=== PATIENT | male | born 1965 | race African-American/Black ===

== ENCOUNTER 2019-06-07 12:06 | Inpatient (IN) | payer OTHER, SELFPAY ==
[2019-06-07] VITALS (16 sets, daily range): BP systolic 126–151; BP diastolic 64–93; PULSE 87–102; RESP 17–30; TEMP 36.8–38.7; O2SAT 92–99; BMI 30.7
--- NOTE | ~2019-06-07 | XR_ITS ---
EXAMINATION: XR chest 1V portable DATE: 06/07/2019 13:14 INDICATION: Cough. Shortness of breath. TECHNIQUE: A single frontal view of the chest was obtained. COMPARISON: None. FINDINGS: There are patchy airspace opacities in the mid and lower lung zones. No pleural effusion or pneumothorax. The heart size is normal. IMPRESSION: 1. Patchy airspace opacities in the mid and lower lung zones, consistent with pneumonia versus pulmon brock edema. Reviewed, dictated and finalized at location A. IMPRESSION: 1. Patchy airspace opacities in the mid and lower lung zones, consistent with p neumonia versus pulmonary edema.
--- NOTE | ~2019-06-07 | XR_ITS ---
EXAMINATION: XR chest 1V portable DATE: 06/25/2019 06:23 INDICATION: Pneumonia TECHNIQUE: frontal view of the chest was obtained. COMPARISON: Chest radiograph dated 06/24/2019 FINDINGS: No significant interval change in diffuse bilateral lung disease relatively sparing the left upper lakesh[place] ng zone. No pneumothorax or definitive pleural effusion. The cardiomediastinal silhouette is normal. IMPRESSION: 1. No significant change in extensive diffuse bilateral lung disease consistent with pneumonia. Reviewed, dictated and finalized at location A.
--- NOTE | ~2019-06-07 | XR_ITS ---
XR chest 1V portable DATE: 06/10/2019 10:56 INDICATION: Worsening breath sounds.] COVID-19 infection TECHNIQUE: Portable upright AP chest on 06/10/2019 at 1051 hours COMPARISON: 06/08/2019 portable AP chest FINDINGS: There are extensive bilateral pulmonary infiltrates, which appear mildly increased in sever ity compared to 06/08/19,020. Normal heart size. No pleural effusion or pulmonary vascular congestion or pneumothorax is evident. IMPRESSION: Extensive bilateral pulmonary infiltrates throughout both lungs, mildly increased since Reviewed, dictated and finalized at location A. IMPRESSION: Extensive bilateral pulmonary infiltrates throughout both lungs, mi ldly increased since 06/08/2019
--- NOTE | ~2019-06-07 | XR_ITS ---
XR chest 1V portable 06/11/2019 16:39 Indication: Hypoxia. COVID positive. Procedure: AP portable chest Comparison: Comparison to multiple prior studies sequentially, with oldest reviewed study dated 04/2019. Findings: Stable extensive bilateral airspace disease, compatible with pneumonia. No pleural effusion or pneumothorax. No acute osseous abnormality. Stable cardiomediastinal silhouette. Impression: 1: Stable extensive bilateral airspace disease, compatible with pneumonia. Differential diagnosis inc ludes ARDS and edema. Reviewed, dictated and finalized at location A. Impression: 1: Stable extensive bilateral airspace disease, compatible with pneumonia. Diff erential diagnosis includes ARDS and edema.
--- NOTE | ~2019-06-07 | XR_ITS ---
EXAMINATION: XR chest 1V portable DATE: 06/18/2019 05:55 INDICATION: COVID-19 pneumonia. TECHNIQUE: A single frontal view of the chest was obtained. COMPARISON: Chest single view 06/14/2019 FINDINGS: The lung volumes are small. There are coarse airspace and interstitial opacities throughout the lungs bilaterally. No pleural effusion or pneumothorax. The heart size is normal. IMPRESSION: 1. Stable diffuse lung disease, consistent with pneumonia versus acute respiratory distress syndrome (ARDS). Reviewed, dictated and finalized at location A. IMPRESSION: 1. Stable diffuse lung disease, consistent with pneumonia versus acute respirat ory distress syndrome (ARDS).
--- NOTE | ~2019-06-07 | XR_ITS ---
EXAMINATION: XR chest 1V portable DATE: 06/08/2019 08:46 INDICATION: Worsening hypoxia. COVID PUI TECHNIQUE: frontal view of the chest was obtained. COMPARISON: Chest radiograph dated 06/07/2019 FINDINGS: No significant interval change in scattered bilateral patchy airspace opacities relatively sparing th e apices. No pleural effusion or pneumothorax. The cardiomediastinal silhouette is normal. IMPRESSION: 1. Unchanged bilateral scattered patchy airspace opacities consistent with multifocal pneumonia and/o r pulmonary edema. Reviewed, dictated and finalized at location B. IMPRESSION: 1. Unchanged bilateral scattered patchy airspace opacities consistent with mult ifocal pneumonia and/or pulmonary edema.
--- NOTE | ~2019-06-07 | XR_ITS ---
EXAMINATION: XR chest 1V portable DATE: 06/22/2019 08:10 INDICATION: COVID-19 pneumonia. TECHNIQUE: A single frontal view of the chest was obtained. COMPARISON: Chest single view 06/21/2019 FINDINGS: The lung volumes are small. There are interstitial opacities and airspace opacities through out the lungs bilaterally. No pleural effusion or pneumothorax. The heart size is normal. IMPRESSION: 1. Stable diffuse lung disease, consistent with pneumonia versus acute respiratory distress syndrome (ARDS). Reviewed, dictated and finalized at location A. IMPRESSION: 1. Stable diffuse lung disease, consistent with pneumonia versus acute respirat ory distress syndrome (ARDS).
--- NOTE | ~2019-06-07 | XR_ITS ---
EXAMINATION: XR chest 1V portable EXAM DATE: 06/24/2019 06:23 INDICATION: Pneumonia. TECHNIQUE: Portable AP frontal chest x-ray was obtained. Comparison is made to prior examination from 06/23/2019. FINDINGS: Extensive bilateral abnormal reticulation and patchy regions of more confluent opacity agai n seen. There is no pneumothorax suspected. Probable small pleural effusions. Cardiomediastinal silho uette is normal. There are mild bony degenerative changes. IMPRESSION: Extensive acute bilateral airspace disease unchanged. Reviewed, dictated and finalized at location A.
--- NOTE | ~2019-06-07 | XR_ITS ---
EXAMINATION: XR chest 1V portable INDICATION: Bilateral infiltrates, shortness of breath TECHNIQUE: Portable AP chest at 0811 hours COMPARISON: 06/18/2019 FINDINGS: Widespread airspace opacities persist with improvement in the mid and upper lung zones. The lung volumes are low. The heart size is normal. There is no pleural effusion or pneumothorax. IMPRESSION: 1. Diffuse lung disease with improvement in the mid and upper lung zones, consistent with improving p neumonia versus acute respiratory distress syndrome (ARDS). Reviewed, dictated and finalized at location A. IMPRESSION: 1. Diffuse lung disease with improvement in the mid and upper lung zones, consi stent with improving pneumonia versus acute respiratory distress syndrome (ARDS ).
--- NOTE | ~2019-06-07 | XR_ITS ---
EXAMINATION: XR chest 1V portable DATE: 06/14/2019 06:12 INDICATION: Pneumonia. TECHNIQUE: A single frontal view of the chest was obtained. COMPARISON: Chest single view 06/11/2019 FINDINGS: There are airspace opacities in all lung zones bilaterally. No pleural effusion or pneumoth orax. The heart size is normal. IMPRESSION: 1. Stable diffuse lung disease, consistent with pneumonia versus acute respiratory distress syndrome (ARDS). Reviewed, dictated and finalized at location A. IMPRESSION: 1. Stable diffuse lung disease, consistent with pneumonia versus acute respirat ory distress syndrome (ARDS).
--- NOTE | ~2019-06-07 | XR_ITS ---
EXAMINATION: XR chest 1V portable EXAM DATE: 06/23/2019 05:47 INDICATION: Pneumonia. COVID 19 positive. TECHNIQUE: Portable AP frontal chest x-ray was obtained. Comparison is made to prior examination from 06/22/2019. FINDINGS: Extensive bilateral abnormal reticulation again seen There is no pneumothorax suspected. Pr obable small pleural effusions. Cardiomediastinal silhouette is normal. There are mild bony degenerat alexy changes. IMPRESSION: Extensive bilateral airspace disease unchanged. Reviewed, dictated and finalized at location A.
--- NOTE | 2019-06-07 12:15 | ECG_ITS ---
Measurements Intervals [place] Rate: 103 P: 50 TX: 157 QRS: -21 QRSD: 84 T: 1 QT: 320 QTc: 421 Interpretive Statements SINUS TACHYCARDIA BORDERLINE T WAVE ABNORMALITY- INFERIOR LEADS BASELINE WANDER- I, II, III, AVR, AVL, AVF ABNORMAL ECG Electronically Signed On 06-07-2019 13:43:50 CDT by Marlon John D.O.
--- NOTE | 2019-06-07 12:15 | PC.NURSE ---
Note both patient and spouse are wearing masks on arrival. States we don't want to catch anything .
[2019-06-07 12:22] LABS: Glucose Point of Care 63 (65-105)
[2019-06-07] MEDS: DEXTROSE 50% 25 GM/50 ML SYRINGE (12:23)
--- NOTE | 2019-06-07 12:27 | ED.WEAKNESS ---
HPI - Weakness General Chief complaint: Weakness <ALLEN Hernandez Last Filed: 06/07/19 14:29> Stated complaint: Weakness <ALLEN Hernandez Last Filed: 06/07/19 14:29> Time Seen by Provider: 06/07/19 12:19 <ALLEN Hernandez Last Filed: 06/07/19 14:29> Source: patient <ALLEN Hernandez Last Filed: 06/07/19 14:29> Mode of arrival: ambulatory <ALLEN Hernandez Last Filed: 06/07/19 14:29> Limitations: no limitations <ALLEN Hernandez Last Filed: 06/07/19 14:29> History of Present Illness HPI Narrative: Pt is a 53 y/o male, with a H/O IDDM, who presents to the ED with c/o generalized weakness for 4-5 days. He states that he has been feeling jittery and notes that he has been taking his insulin, but he has not been checking his BS. Pt also reports a productive cough and SOB for 3-4 days. He states that he gets more SOB with exertion, but he is still SOB in the ED bed. Pt denies fever, congestion, sore throat, rhinorrhea, CP, ABD pain, vomiting, dysuria, hematuria. He states that he has not been around any sick or anyone that has recently travelled. He also denies any recent travel. Pt got his flu shot this year. <ALLEN Hernandez Last Filed: 06/07/19 14:29> MD Complaint: generalized weakness <ALLEN Hernandez Last Filed: 06/07/19 14:29> Onset (ago): day(s) (4-5) <ALLEN Hernandez Last Filed: 06/07/19 14:29> Location: generalized <ALLEN Hernandez Last Filed: 06/07/19 14:29> Context: other (DM: not checking BS) <ALLEN Hernandez Last Filed: 06/07/19 14:29> Associated symptoms: shortness of breath and other ( jittery , cough) <ALLEN Hernandez Last Filed: 06/07/19 14:29> Related Data Allergies/Adverse reactions: Allergies Allergy/AdvReac Type Severity Reaction Status Date / Time Penicillins Allergy Unknown Verified 06/07/19 12:17 <Azalea Sanders PA-C - Last Filed: 06/07/19 14:29> Review of Systems Review of Systems: Narrative: CONSTITUTIONAL: Denies fever ENT: Denies rhinorrhea, congestion, sore throat, or otalgia. CARDIOVASCULAR: Denies chest pain, or edema. RESPIRATORY: Reports cough and dyspnea. GASTROINTESTINAL: Denies abdominal pain, nausea, vomiting, or diarrhea. GENITOURINARY: Denies dysuria or hematuria. NEUROLOGIC: Reports weakness. <ALLEN Hernandez Last Filed: 06/07/19 14:29> All systems reviewed & are unremarkable except as noted in HPI and below <Azalea Sanders PA-C - Last Filed: 06/07/19 14:29> Constitutional: Constitutional: Denies fever(s) and Reports weakness (generalized) <ALLEN Hernandez Last Filed: 06/07/19 14:29> ENT: Denies nasal congestion, Denies nasal discharge and Denies sore throat <ALLEN Hernandez Last Filed: 06/07/19 14:29> Cardiovascular: Cardiovascular: Denies chest pain <ALLEN Hernandez Last Filed: 06/07/19 14:29> Respiratory: Respiratory: Reports cough and Reports dyspnea <ALLEN Hernandez Last Filed: 06/07/19 14:29> Gastrointestinal: Gastrointestinal: Denies abdominal pain and Denies vomiting <ALLEN Hernandez Last Filed: 06/07/19 14:29> Genitourinary: Genitourinary: Denies hematuria and Denies dysuria <ALLEN Hernandez Last Filed: 06/07/19 14:29> Endocrine: Endocrine: Reports other ( jittery ) <ALLEN Hernandez Last Filed: 06/07/19 14:29> [facility] Past Medical History Medical History: Medical History (Updated 06/07/19 @ 14:02 by Azalea Sanders PA-C) IDDM (insulin dependent diabetes mellitus) <Azalea Sanders PA-C - Last Filed: 06/07/19 14:29> Surgical History Surgical History: Surgical History (Updated 06/07/19 @ 12:38 by Tenzin Cruz) No significant past surgical history <Azalea Sanders PA-C - Last Filed: 06/07/19 14:29> Social History Social History: Social History Sm
[2019-06-07 12:54] LABS: Alveolar/Arterial O2 Gradient 53.8 mmHg; Base Excess ABG 2.4 mEq/l (+/-2.0); Carboxyhemoglobin 0.2 % THb (0-2.0); Device ROOM AIR; Fractional Inspired Oxygen 21 %; HCO3 ABG 25.3 mEq/l (22.0-26.0); Methemoglobin ABG 0.2 %THb (0-1.5); Modified Allen's Test Pass; Oxygen Saturation ABG 91.2 % (95.0-100.0); Oxyhemoglobin 87.7 % THb (90.0-100.0); PCO2 ABG 34.1 mmHg (35.0-45.0); PO2 ABG 55.1 mmHg (80.0-100.0); PO2 FiO2 Ratio Arterial Blood 2.62 %; Reduced Hemoglobin 11.9 %THb (0-5.0); Site Drawn RIGHT RADIAL; pH ABG 7.489 (7.350-7.450)
[2019-06-07 12:54] LABS: Basophils Percent Auto 0.2 % (0.2-1.2); Hematocrit 37.8 % (42.0-52.0); Hemoglobin 12.4 g/dL (14.0-18.0); Immature Granulocyte Absolute 0.02 K/mm3 (0.00-0.031); Immature Granulocyte Percent A 0.3 % (0-0.5); Lymphocytes Absolute Auto 0.62 K/mm3 (0.9-3.2); Lymphocytes Percent Auto 10.7 % (18.3-44.2); Mean Corpuscular HGB Conc 32.8 g/dl (32-36); Mean Corpuscular Hemoglobin 28.7 pg (26-34); Mean Corpuscular Volume 87.5 fl (80-100); Mean Platelet Volume 10.2 fl (7.4-10.4); Monocytes Absolute Auto 0.2 K/mm3 (0.1-0.6); Monocytes Percent Auto 4.1 % (2.6-8.5); Neutrophils Absolute Auto 4.9 K/mm3 (1.3-6.7); Neutrophils Percent Auto 84.7 % (45.5-73.1); Platelet Count Result 230 k/mm3 (150-375); Red Blood Count 4.32 M/mm3 (4.6-6.20); Red Cell Distribution Width 11.9 % (11.5-14.5); White Blood Count 5.8 K/mm3 (4.5-10.0)
--- NOTE | 2019-06-07 13:04 | PC.NURSE ---
Addendum entered by Sushant Barrett RN 06/07/19 14:15: placed on o2 due to abg results. spo2 room air 93-94% consistently. Original Note: pt tray ordered. Pt placed on o2 at 2l/nc per verbal order SANAZ Tristan, due to low pulse oximetry
[2019-06-07 13:05] LABS: Lactic Acid Reflex 1.2 mmol/L (0.7-2.1)
[2019-06-07 13:11] LABS: INR 1.1
[2019-06-07 13:32] LABS: Lactate Dehydrogenase 1970 U/L (313-618)
[2019-06-07 13:37] LABS: CRP 13.1 mg/dL (<1.0)
--- NOTE | 2019-06-07 13:41 | PC.NURSE ---
Droplet precautions initiated per order GERBER Foley.
[2019-06-07 13:43] LABS: NT Pro B Type Natriuretic Pept 52 PG/ML (5-100)
--- NOTE | 2019-06-07 13:47 | PC.NURSE ---
[facility] Covid 19 testing authorization number [id number]
[2019-06-07 14:02] LABS: Alanine Aminotransferase 162 U/L (4-50); Albumin Level 3.6 g/dL (3.5-5.1); Alkaline Phosphatase 40 U/L (38-126); Aspartate Amino Transferase 228 U/L (17-59); Bilirubin,Total 0.9 mg/dL (0.2-1.3); Blood Urea Nitrogen 8 mg/dL (9-20); Calcium 8.4 mg/dL (8.4-10.2); Carbon Dioxide 28 mmol/L (22-30); Chloride 97 mmol/L (98-107); Estimated CRCL calculation 125 ml/min; Estimated Glomerular Filt Rate > 60; Glucose 172 mg/dL (75-110); Potassium 3.3 mmol/L (3.4-5.0); Sodium 134 mmol/L (137-145)
--- NOTE | 2019-06-07 14:13 | PC.NURSE ---
Pt unable to void. GERBER Tristan made aware. Will continue to monitor.
[2019-06-07 14:58] LABS: Glucose Point of Care 148 (65-105)
[2019-06-07] MEDS: POTASSIUM CHLORIDE 20 MEQ TABLET 40 MEQ PO (15:00)
[2019-06-07 15:16] LABS: Add Urine Microscopic? YES; Appearance Urine Clear (Clear); Bacteria Urine Trace /hpf; Bilirubin Urine Negative (Negative); Blood Urine Negative (Negative); Color Urine Amber (Yellow); Glucose Urine UA 3+ mg/dL (Negative); Ketones Urine Negative (Negative); Leukocyte Esterase Ur Negative LEU/UL (Negative); Mucus Urine Moderate /lpf; Nitrate Urine Negative (Negative); Protein Urine 3+ mg/dL (Negative); RBC Urine 0-2 /hpf (0-2); Specific Grav Ur 1.021 (1.001-1.035); Squamous Epithelial Cell Urine Rare /hpf (Few)
--- NOTE | 2019-06-07 15:22 | PC.NURSE ---
Pt unable to verify his medications. States he takes gliperide and some medicine that starts with AL for blood pressure. Also states takes 34 units of Vagular every evening and morning.
--- NOTE | 2019-06-07 15:40 | PC.NURSE ---
Note pt alarming hypoxic, spo2 77%, able to hear patient coughing loudly, after precautions placed per this RN pt states that he tried to lay on his side and started coughing and was winded . Pt's spo2 97% on 2L/nc at present. Preparing to transport pt to floor.
--- NOTE | 2019-06-07 16:09 | ADMGEN ---
This patient, Job Mendoza Jr., was admitted to [facility] Surg Room 332-01. Patient/family oriented to hospital policies and general routines including ID bracelet, bed and alarms, visiting hours, pain management, procedures, bathroom and other care routines, personal items, smoking policy, room service/diet, and visiting hours. Valuables list has been completed. Information on how to activate the Rapid Response Team has been discussed. Patient/Family are encouraged to report perceived risks to care and to ask questions if they do not understand what they are told or what they should do.
[2019-06-07 17:59] LABS: Glucose Point of Care 147 (65-105)
--- NOTE | 2019-06-07 18:00 | PM.IMHP ---
H&P: HPI History of Present Illness Chief complaint: Bilateral pneumonia/hypoxia Narrative: Job Mendoza Jr. is a 53-year-old male with hypertension, hyperlipidemia, gout, and insulin-dependent diabetes who presented to the emergency department earlier today from home for evaluation of generalized weakness. For the past 7 days, he reports generalized malaise and progressive weakness as well as a cough and shortness of breath on exertion. He also notes bilateral pleuritic pain, mainly in the mid back region, that seems to be worse with deep inspiration, cough, and lying flat. He has not had a fever to his knowledge but has had chills. His appetite has been poor due to decrease sense of taste. He tells me is not left his house in 7 days due to feeling bad, has not had recent travel, and has not been exposed to anyone who has tested positive for COVID-19 to his knowledge. He continues to take his home medications, including his insulin, despite having a poor appetite. He also admits that he is not checking his glucose at home. He denies headache, sinus congestion, rhinorrhea, otalgia, odynophagia, exertional chest pain, abdominal pain, nausea, vomiting, diarrhea, and dysuria. No blurry vision, polydipsia, or polyuria. Review of Systems Review of Systems: Narrative: Twelve systems were reviewed with pertinent positives and negatives as per HPI. Except as documented, all other systems were reviewed and are negative. [facility] Past Medical History Medical History (Updated 06/07/19 @ 21:12 by Yakelin Aguilar PA-C) Gout Hyperlipidemia Hypertension Insulin dependent type 2 diabetes mellitus Surgical History Surgical History No significant past surgical history Family History Family History Father Cancer Mother Cancer Social History Social History (Updated 06/07/19 @ 21:09 by Yakelin Aguilar PA-C) Social History: The patient lives in [place], [place]. He says he lives alone, but on occasion I believe it is his ex- will stay with him sometimes. He is not employed. He designates his /ex- Anahi Mendoza, as his surrogate decision maker wishes to be a full code. He drinks perhaps 1 alcoholic beverage a week. No drug use. Spiritual care concerns: No Agree to blood products: Yes Meds Home Medications and Allergies Home Medications Medication Instructions Recorded Confirmed Type allopurinol 100 mg PO DAILY 06/07/19 06/07/19 History atorvastatin 40 mg PO DAILY 06/07/19 06/07/19 History dextromethorphan-guaifenesin 5 ml PO 06/07/19 History [Siltussin-DM] glimepiride 4 mg PO DAILY 06/07/19 06/07/19 History insulin glargine [Lantus Solostar 34 unit SUBCUT BID 06/07/19 06/07/19 History U-100 Insulin] lisinopril 5 mg PO DAILY 06/07/19 06/07/19 History metformin 1,000 mg PO DAILY 06/07/19 06/07/19 History Allergies Allergy/AdvReac Type Severity Reaction Status Date / Time Penicillins Allergy Unknown Verified 06/07/19 12:17 Vital Signs Vital Signs - 24 hr 06/07/19 12:10 06/07/19 12:30 06/07/19 12:40 Temperature 98.2 F Pulse Rate 102 H 87 90 Respiratory Rate 17 22 H Blood Pressure 135/81 Pulse Oximetry 93 94 06/07/19 12:46 06/07/19 13:01 06/07/19 13:17 Temperature Pulse Rate 96 95 99 Respiratory Rate 30 H 21 H 24 H Blood Pressure 137/77 151/83 H 140/85 Pulse Oximetry 93 97 06/07/19 13:31 06/07/19 13:32 06/07/19 13:47 Temperature Pulse Rate 100 102 H 97 Respiratory Rate 30 H 24 H 18 Blood Pressure 147/78 H 141/64 H Pulse Oximetry 94 95 99 06/07/19 14:02 06/07/19 16:00 Temperature 100.7 F H Pulse Rate 96 89 Respiratory Rate 28 H 24 H Blood Pressure 126/93 H 140/86 Pulse Oximetry 98 95 Exam Narrative: Exam Narrative: General: Well-developed, mildly ill-appearing male supine in bed in no acute distress. He is nontoxic
[2019-06-07 22:26] LABS: Glucose Point of Care 89 (65-105)
[2019-06-08] VITALS (15 sets, daily range): BP systolic 107–132; BP diastolic 67–78; PULSE 76–102; RESP 18–92; TEMP 36.4–38.9; O2SAT 91–95; BMI 30.7
[2019-06-08 06:04] LABS: Alanine Aminotransferase 179 U/L (4-50); Albumin Level 3.4 g/dL (3.5-5.1); Alkaline Phosphatase 45 U/L (38-126); Aspartate Amino Transferase 228 U/L (17-59); Bilirubin,Total 0.8 mg/dL (0.2-1.3); Blood Urea Nitrogen 7 mg/dL (9-20); Calcium 8.4 mg/dL (8.4-10.2); Carbon Dioxide 30 mmol/L (22-30); Chloride 97 mmol/L (98-107); Estimated CRCL calculation 144 ml/min; Estimated Glomerular Filt Rate > 60; Glucose 94 mg/dL (75-110); Magnesium 2.2 mg/dL (1.6-2.3); Sodium 134 mmol/L (137-145)
[2019-06-08 06:06] LABS: Lactate Dehydrogenase 1995 U/L (313-618)
[2019-06-08 06:30] LABS: Basophils Percent Auto 0.2 % (0.2-1.2); Hematocrit 38.7 % (42.0-52.0); Hemoglobin 12.5 g/dL (14.0-18.0); Hemoglobin A1C 11.3 % (<5.7); Immature Granulocyte Absolute 0.02 K/mm3 (0.00-0.031); Immature Granulocyte Percent A 0.4 % (0-0.5); Lymphocytes Absolute Auto 1.32 K/mm3 (0.9-3.2); Lymphocytes Percent Auto 23.9 % (18.3-44.2); Mean Corpuscular HGB Conc 32.3 g/dl (32-36); Mean Corpuscular Hemoglobin 28.5 pg (26-34); Mean Corpuscular Volume 88.2 fl (80-100); Mean Platelet Volume 10.4 fl (7.4-10.4); Monocytes Absolute Auto 0.2 K/mm3 (0.1-0.6); Monocytes Percent Auto 3.3 % (2.6-8.5); Neutrophils Percent Auto 72.2 % (45.5-73.1); Platelet Count Result 270 k/mm3 (150-375); Red Blood Count 4.39 M/mm3 (4.6-6.20); White Blood Count 5.5 K/mm3 (4.5-10.0)
[2019-06-08 08:08] LABS: Glucose Point of Care 94 (65-105)
--- NOTE | 2019-06-08 08:25 | PC.NURSE ---
Malinda Morejon called and status report given. Advised of initial 02 requirements of 2L but patient currently using 5L/NC to maintain 02 sat 93%. Reviewed am labs including elevated LFTS, vital signs, cxr results, and patient c/o SOB at times. New orders received. Patient encouraged to continue to lie prone as tolerated. Will continue to monitor closely.
--- NOTE | 2019-06-08 10:35 | PM.IMPN ---
Progress Note: A&P Assessment and Plan (1) Bilateral pneumonia: Qualifiers: Lung location: lower lobe of lung Pneumonia type: due to unspecified organism Qualified Code(s): J18.9 - Pneumonia, unspecified organism Code(s): J18.9 - Pneumonia, unspecified organism Status: Acute Assessment and Plan: -----likely COVID-19, awaiting official testing. Chest x-ray shows bilateral pneumonia which is stable, transaminitis, elevated LDH with a normal BNP. Continue azithromycin and ceftriaxone at this time. Specimen has been collected and is being tested by the [facility]. Continue albuterol MDI (2) Hypokalemia: Code(s): E87.6 - Hypokalemia Status: Acute Assessment and Plan: -----potassium within normal limits today. Monitor (3) Acute respiratory failure with hypoxia: Code(s): J96.01 - Acute respiratory failure with hypoxia Status: Acute Assessment and Plan: -----continue oxygen to keep saturations greater than 90 and the patient comfortable. Advised the patient that laying on his stomach in a prone position may help improve his oxygen saturations. Should his oxygen requirements continue to increase, would moved to ICU and have low threshold for intubation. He is on continuous pulse ox therapy (4) Transaminasemia: Code(s): R74.0 - Nonspecific elevation of levels of transaminase and lactic acid dehydrogenase [LDH] Status: Acute Assessment and Plan: -----no history of alcohol abuse or liver disease. Concern for transaminasemia due to COVID-19, test pending. (5) Insulin dependent type 2 diabetes mellitus: Code(s): E11.9 - Type 2 diabetes mellitus without complications; Z79.4 - snf (current) use of insulin Status: Acute Assessment and Plan: -----glucose has been stable and will continue sliding scale insulin at this time. A1c is 11.3 so he is uncontrolled at baseline. Will add back his basal insulin if he trends high. (6) Hypertension: Code(s): I10 - Essential (primary) hypertension Status: Acute Assessment and Plan: -----last blood pressure 123/76. Continue lisinopril (7) Hyperlipidemia: Code(s): E78.5 - Hyperlipidemia, unspecified Status: Acute Assessment and Plan: -----statin held. Time Spent With Patient Time with patient: 25 - 35 minutes Subjective Date/time seen: 06/08/19 10:35 Interval history: Pt is a 53-year-old male here for shortness of breath presume COVID-19 positive. Patient was seen today and says he feels weak. He has no fevers, chills, or joint pain at this time. He feels short of breath when he is up and moving and sitting certain ways but at rest he feels okay. He is currently on 5 L of oxygen and not having any complaints at this time. He denies chest pain, nausea, vomiting, leg swelling or abdominal pain. He is eating and drinking well and able to eat small amounts of food at a time. He denies any history of smoking, drinking, or liver disease. Review of Systems Review of Systems: All systems reviewed & are unremarkable except as noted in HPI and below Exam Narrative: Exam Narrative: General: Well developed well nourished patient resting comfortably in bed in NAD HEENT: normocephalic Neck: supple Neuro: Alert and oriented x 4. CV:RRR. Telemetry with no abnormal alarm reviews Resp: Bilateral rhonchi. Patient is on 5 L of oxygen with no conversational dyspnea or retractions. Current pulse ox 91 Abd: Soft, non distended. No pain to palpation. Positive bowel sounds Extremities: No swelling, erythema, or pain to palpation. Objective Data Vital Signs Vital Signs: Vital Signs - 24 hr 06/07/19 12:10 06/07/19 12:30 06/07/19 12:40 Temperature 98.2 F Pulse Rate 102 H 87 90 Respiratory Rate 17 22 H Blood Pressure 135/81 Pulse Oximetry 93 94 06/07/19 12:46
[2019-06-08] MEDS: allopurinoL 100 MG TABLET PO (11:15)
[2019-06-08] MEDS: lisinopriL 5 MG TABLET PO (11:15)
[2019-06-08 11:56] LABS: Glucose Point of Care 160 (65-105)
--- NOTE | 2019-06-08 15:08 | PC.NURSE ---
Patient states of feeling much better this afternoon, breathing easier with 02 sats 94-95 on 5L/NC. States poor appetite but continues with po fluids. Patient turned to prone position. Will continue to monitor.
--- NOTE | 2019-06-08 15:09 | PC.NURSE ---
Patient c/o SOB with 02 sat dropped to 82% in prone position. Assisted to move to left side and 02 increased to 6L/NC - sats returned to 94%. Malinda Morejon notified. No new orders. I advised patient to rest on back or side whichever is most comfortable and advised that Malinda Morejon stated drop in 02 sat secondary to movement. He voiced understanding.
[2019-06-08 17:11] LABS: Glucose Point of Care 166 (65-105)
[2019-06-08] MEDS: ACETAMINOPHEN 325 MG TABLET 650 MG (18:36)
[2019-06-08 22:39] LABS: Glucose Point of Care 154 (65-105)
[2019-06-09] VITALS (13 sets, daily range): BP systolic 120–135; BP diastolic 52–91; PULSE 84–119; RESP 20–29; TEMP 36.7–38.3; O2SAT 90–100
[2019-06-09] MEDS: ALBUTEROL SULFATE (*SP) AEROSOL 1 PUFF 2 PUFF INHALATION (03:40)
[2019-06-09] MEDS: ACETAMINOPHEN 325 MG TABLET 650 MG PO ×2 (05:26→15:48)
[2019-06-09 06:28] LABS: Hematocrit 36.6 % (42.0-52.0); Hemoglobin 11.9 g/dL (14.0-18.0); Mean Corpuscular HGB Conc 32.5 g/dl (32-36); Mean Corpuscular Hemoglobin 28.6 pg (26-34); Mean Platelet Volume 10.1 fl (7.4-10.4); Platelet Count Result 290 k/mm3 (150-375); Red Blood Count 4.16 M/mm3 (4.6-6.20); Red Cell Distribution Width 12.1 % (11.5-14.5); White Blood Count 6.4 K/mm3 (4.5-10.0)
[2019-06-09 07:53] LABS: Alanine Aminotransferase 178 U/L (4-50); Albumin Level 3.2 g/dL (3.5-5.1); Alkaline Phosphatase 46 U/L (38-126); Aspartate Amino Transferase 180 U/L (17-59); Bilirubin,Total 0.8 mg/dL (0.2-1.3); Blood Urea Nitrogen 8 mg/dL (9-20); CRP 19.6 mg/dL (<1.0); Calcium 8.2 mg/dL (8.4-10.2); Carbon Dioxide 29 mmol/L (22-30); Chloride 96 mmol/L (98-107); Estimated CRCL calculation 144 ml/min; Estimated Glomerular Filt Rate > 60; Glucose 155 mg/dL (75-110); Lactate Dehydrogenase 2050 U/L (313-618); Magnesium 2.2 mg/dL (1.6-2.3); Sodium 132 mmol/L (137-145)
--- NOTE | 2019-06-09 10:41 | PM.IMPN ---
Progress Note: A&P Assessment and Plan (1) COVID-19 virus detected: Code(s): U07.1 - COVID-19 Status: Acute Assessment and Plan: -----COVID-19 positive with bilateral pneumonia and hypoxia. Patient is doing better today but did have some hypoxia which is sitting up. His oxygen is currently at 4 L any has no complaints of shortness of breath with this. His labs show transaminitis, elevated LDH, and elevated CRP consistent with COVID-19 infection. Will closely monitor him on telemetry and continuous pulse oximetry. So far the patient is stable. I educated him about the diagnosis and he would like me to talk to his sister Ernesto about his diagnosis as well. I have called and spoke with her. (2) Bilateral pneumonia: Qualifiers: Lung location: lower lobe of lung Pneumonia type: due to unspecified organism Qualified Code(s): J18.9 - Pneumonia, unspecified organism Code(s): J18.9 - Pneumonia, unspecified organism Status: Acute Assessment and Plan: -----d/t COVID-19 Chest x-ray shows bilateral pneumonia which appears stable, transaminitis, elevated LDH with a normal BNP. Continue azithromycin and ceftriaxone at this time. Continue albuterol MDI (3) Hypokalemia: Code(s): E87.6 - Hypokalemia Status: Acute Assessment and Plan: -----potassium within normal limits today. Monitor (4) Acute respiratory failure with hypoxia: Code(s): J96.01 - Acute respiratory failure with hypoxia Status: Acute Assessment and Plan: -----continue oxygen to keep saturations greater than 90 and the patient comfortable. Should his oxygen requirements continue to increase, would moved to ICU and have low threshold for intubation. He is on continuous pulse ox therapy (5) Transaminasemia: Code(s): R74.0 - Nonspecific elevation of levels of transaminase and lactic acid dehydrogenase [LDH] Status: Acute Assessment and Plan: -----no history of alcohol abuse or liver disease. 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 A1c is 11.3 so he is uncontrolled at baseline. Will add back his basal insulin if he trends high. (7) Hypertension: Code(s): I10 - Essential (primary) hypertension Status: Acute Assessment and Plan: -----last blood pressure 122/52. Continue lisinopril (8) Hyperlipidemia: Code(s): E78.5 - Hyperlipidemia, unspecified Status: Acute Assessment and Plan: -----statin held. Subjective Date/time seen: 06/09/19 10:41 Interval history: Pt is a 53-year-old male here for viral pneumonia due to COVID-19. Patient was seen today and says he feels little bit better today. He says his achiness is less but he still feels weak. He was laying down during my exam and was not having any trouble with oxygen saturations and his O2 sat was 100% on 5 L. I took him down to 3.5 L and he was doing fine until he sat up for the lung exam which made him SOB with sats at 90 so he was put up to 4L and he improved and felt much better. We discussed his diagnosis and the plan of care. Pt denies nausea, vomiting, chills, constipation, diarrhea, chest pain, or abdominal pain. Exam Narrative: Exam Narrative: General: Well developed well nourished patient resting comfortably in bed in NAD HEENT: normocephalic Neck: supple Neuro: Alert and oriented x 4. CV:RRR. Telemetry with no abnormal alarm reviews Resp: Bilateral rhonchi but good air movement. Patient is on 4 L of oxygen with no conversational dyspnea or retractions. Current pulse ox 94. Please note this exam was with a plastic stetho
[2019-06-09] MEDS: allopurinoL 100 MG TABLET PO (11:11)
[2019-06-09] MEDS: lisinopriL 5 MG TABLET PO (11:11)
[2019-06-09 11:24] LABS: Glucose Point of Care 185 (65-105)
--- NOTE | 2019-06-09 12:00 | PC.NURSE ---
Shana MAYES decreased pts oxygen to 4L down from 6L, pts O2 saturation checked now at 89-90% account underwriter increased pts oxygen to 5L and pts SpO2 92%.
--- NOTE | 2019-06-09 15:15 | ECG_ITS ---
Measurements Intervals [place] Rate: 118 P: MN: 0 QRS: -3 QRSD: 78 T: 27 QT: 306 QTc: 430 Interpretive Statements SINUS TACHYCARDIA BORDERLINE T WAVE ABNORMALITY- INFERIOR LEADS BASELINE WANDER- AVR, AVL, AVF, V1 ABNORMAL ECG Electronically Signed On 06-09-2019 20:05:15 CDT by Marlon John D.O.
--- NOTE | 2019-06-09 17:07 | PC.NURSE ---
Pt is being transferred to to ICU over flow as IMU status at 1715 D/T new onset of Aflutter RVR with HR 169.
[2019-06-09] MEDS: INSULIN ASPART (*BKC) 100 UNITS/ML SUB-Q (17:41)
[2019-06-09 17:59] LABS: Glucose Point of Care 235 (65-105)
[2019-06-09 21:16] LABS: Glucose Point of Care 183 (65-105)
[2019-06-09] MEDS: DILTIAZEM HCL 30 MG TABLET PO (23:22)
[2019-06-10] VITALS (17 sets, daily range): BP systolic 135–157; BP diastolic 83–94; PULSE 82–107; RESP 20–32; TEMP 36.9–38.4; O2SAT 93–96
[2019-06-10 05:00] LABS: Pneumococcal Antigen Urine Not Detected (Not Detected)
[2019-06-10 05:21] LABS: Hematocrit 38.3 % (42.0-52.0); Hemoglobin 12.6 g/dL (14.0-18.0); Mean Corpuscular HGB Conc 32.9 g/dl (32-36); Mean Corpuscular Hemoglobin 28.8 pg (26-34); Mean Corpuscular Volume 87.4 fl (80-100); Mean Platelet Volume 9.9 fl (7.4-10.4); Platelet Count Result 337 k/mm3 (150-375); Red Blood Count 4.38 M/mm3 (4.6-6.20); White Blood Count 6.7 K/mm3 (4.5-10.0)
[2019-06-10] MEDS: DILTIAZEM HCL 30 MG TABLET PO (05:40)
[2019-06-10 05:43] LABS: Alanine Aminotransferase 159 U/L (4-50); Albumin Level 3.4 g/dL (3.5-5.1); Alkaline Phosphatase 53 U/L (38-126); Aspartate Amino Transferase 120 U/L (17-59); Blood Urea Nitrogen 10 mg/dL (9-20); Calcium 8.5 mg/dL (8.4-10.2); Carbon Dioxide 30 mmol/L (22-30); Chloride 94 mmol/L (98-107); Estimated CRCL calculation 146 ml/min; Estimated Glomerular Filt Rate > 60; Glucose 222 mg/dL (75-110); Potassium 4.2 mmol/L (3.4-5.0); Sodium 131 mmol/L (137-145)
[2019-06-10] MEDS: lisinopriL 5 MG TABLET PO (07:45)
[2019-06-10] MEDS: allopurinoL 100 MG TABLET PO (07:45)
[2019-06-10] MEDS: INSULIN ASPART (*BKC) 100 UNITS/ML SUB-Q ×3 (07:46→16:23)
--- NOTE | 2019-06-10 09:20 | PC.NURSE ---
Called GERBER Petty on 06/09/2019 around 1515. Patient became tachycardic in the 160-170's. Patient asymptomatic at this time. STAT EKG was obtained. Results (atrial flutter with RVR) called to Dr. Pastor and orders obtained to transfer to ICU (IMU status).
--- NOTE | 2019-06-10 09:34 | PM.IMPN ---
Progress Note: A&P Assessment and Plan (1) COVID-19 virus detected: Code(s): U07.1 - COVID-19 Status: Acute Assessment and Plan: -----COVID-19 positive with bilateral pneumonia and hypoxia. Patient's breath sounds are worse today and he is more dyspneic. His oxygen is currently at 4 L. I will get another chest x-ray since he has worsened a bit today. His labs show transaminitis, elevated LDH, and elevated CRP consistent with COVID-19 infection. Will closely monitor him on telemetry and continuous pulse oximetry. So far the patient is stable. I educated him about the diagnosis and he would like me to talk to his sister Ernesto about his diagnosis as well. I have called and spoke with her. (2) Bilateral pneumonia: Qualifiers: Lung location: lower lobe of lung Pneumonia type: due to unspecified organism Qualified Code(s): J18.9 - Pneumonia, unspecified organism Code(s): J18.9 - Pneumonia, unspecified organism Status: Acute Assessment and Plan: -----d/t COVID-19 Chest x-ray shows bilateral pneumonia which appears stable, transaminitis, elevated LDH with a normal BNP. Continue azithromycin and ceftriaxone at this time. Continue albuterol MDI (3) Hypokalemia: Code(s): E87.6 - Hypokalemia Status: Acute Assessment and Plan: -----potassium within normal limits today. Monitor (4) Acute respiratory failure with hypoxia: Code(s): J96.01 - Acute respiratory failure with hypoxia Status: Acute Assessment and Plan: -----continue oxygen to keep saturations greater than 90 and the patient comfortable. Should his oxygen requirements continue to increase, may need intubation. He is on continuous pulse ox therapy (5) Transaminasemia: Code(s): R74.0 - Nonspecific elevation of levels of transaminase and lactic acid dehydrogenase [LDH] Status: Acute Assessment and Plan: -----no history of alcohol abuse or liver disease. 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 A1c is 11.3 so he is uncontrolled at baseline. Will add back his basal insulin if he trends high. Last glucose 222 (7) Hypertension: Code(s): I10 - Essential (primary) hypertension Status: Acute Assessment and Plan: -----last blood pressure 157/94. Continue lisinopril and now Cardizem (8) Hyperlipidemia: Code(s): E78.5 - Hyperlipidemia, unspecified Status: Acute Assessment and Plan: -----statin held. (9) Atrial fibrillation with RVR: Code(s): I48.91 - Unspecified atrial fibrillation Status: Acute Assessment and Plan: -----patient went and AFib RVR overnight but is currently in normal sinus rhythm. He was started on oral diltiazem and Dr. Salazar has been consulted. His CHADS2 Vasc score is 2 but because of this likely being due to infection, Dr. Salazar recommends aspirin 325 as stroke prophylaxis. This is temporary and if he continues to be in AFib he will be switched to Coumadin. EKG reviewed without any significant ST abnormalities. QTC 430 Subjective Date/time seen: 06/10/19 09:34 Interval history: Pt is a 53-year-old male here for viral pneumonia due to COVID-19. Patient was seen today and states his heart palpitations have resolved today. He said yesterday he was in a coughing fit and his heart started racing. He had no chest pain during this time felt like he was not right. This has resolved today. He says he is feeling better today but when the patient sat up he quickly got short of breath. He says at rest he has no shortness of breath but when he moves it
--- NOTE | 2019-06-10 10:53 | PM.CNCAR ---
Assessment and Plan Assessment and plan (1) Atrial fibrillation with RVR: Code(s): I48.91 - Unspecified atrial fibrillation Status: Acute Assessment and Plan: Started on Cardizem 30 every 6 hours, rate improved and subsequently converted sinus rhythm, will increase Cardizem to 60 mg every 6 hours for better rate controlled, he has chads Vasc score of 2, however he is back in sinus rhythm, will start him on full-dose aspirin for now, consider anticoagulation later on if he has any recurrence of AFib or if his echo shows any significant structural heart disease. Will get echocardiogram to evaluate current left ventricular systolic function (structural heart disease if that is feasible (2) COVID-19 virus detected: Code(s): U07.1 - COVID-19 Status: Acute Assessment and Plan: Currently on isolation, he is not in acute respiratory distress at this time (3) Acute respiratory failure with hypoxia: Code(s): J96.01 - Acute respiratory failure with hypoxia Status: Acute Assessment and Plan: Improved since admission (4) Hyperlipidemia: Code(s): E78.5 - Hyperlipidemia, unspecified Status: Acute (5) Hypertension: Code(s): I10 - Essential (primary) hypertension Status: Acute Additional Plan Thank you for allowing me to participate in this patient's care, I will be following up with you. Please do not hesitate to call me for any other inquiry History of Present Illness History of Present Illness Consult date/time: 06/10/19 10:53 Chief complaint shortness of breath. Reason for consultation is atrial fibrillation. 53-year-old gentleman history of hypertension is of diabetes mellitus admitted to the hospital because of shortness breath and cough with fever. He is currently being treated for pneumonia, and suspected covert 19. Noted to have tachycardia his EKG showed atrial fibrillation with rapid ventricular response. He was transferred here for closer monitoring, we started him on Cardizem 30 mg every 6 hours subsequently heart rate slowed down and now he converted to sinus rhythm. He feels okay now. He had palpitation earlier he gets occasional palpitation but no known arrhythmia. No dizziness no lightheadedness no syncope. Denied any chest pain, had significant shortness of breath which is recently had been attributed to his possible pneumonia and recent infection. No orthopnea no PNDs no leg swelling Reason For Visit: Bilateral pneumonia/hypoxia Review of Systems Constitutional: Constitutional: Reports fatigue and Reports weakness Cardiovascular: Cardiovascular: Reports as per HPI Respiratory: Respiratory: Reports cough PMFSH Past Medical History Medical History Gout Hyperlipidemia Hypertension Insulin dependent type 2 diabetes mellitus Surgical History Surgical History No significant past surgical history Family History Family History Father Cancer Mother Cancer Social History Social History (Updated 06/07/19 @ 21:09 by Yakelin Aguilar PA-C) Social History: The patient lives in [place], [place]. He says he lives alone, but on occasion I believe it is his ex- will stay with him sometimes. He is not employed. He designates his /ex- Anahi Mendoza, as his surrogate decision maker wishes to be a full code. He drinks perhaps 1 alcoholic beverage a week. No drug use. Spiritual care concerns: No Agree to blood products: Yes Meds Home Medications and Allergies Home Medications Medication Instructions Recorded Confirmed Type allopurinol 100 mg PO DAILY 06/07/19 06/07/19 History atorvastatin 40 mg PO DAILY 06/07/19 06/07/19 History dextromethorphan-guaifenesin 5 ml PO Q6H PRN 06/07/19 06/08/19 History [Siltussin-DM] glimepiride 4 mg PO DAILY
[2019-06-10 11:35] LABS: Glucose Point of Care 224 (65-105)
[2019-06-10 12:15] LABS: Glucose Point of Care 234 (65-105)
[2019-06-10] MEDS: DILTIAZEM HCL 60 MG TABLET PO ×3 (12:37→23:36)
[2019-06-10] MEDS: ACETAMINOPHEN 325 MG TABLET 650 MG PO ×2 (12:40→18:52)
[2019-06-10 16:11] LABS: Legionella pneumophila Ag Ur Not Detected (Not Detected)
[2019-06-10 16:29] LABS: Glucose Point of Care 254 (65-105)
[2019-06-10 20:43] LABS: Glucose Point of Care 225 (65-105)
[2019-06-11] VITALS (18 sets, daily range): BP systolic 139–153; BP diastolic 75–85; PULSE 82–103; RESP 26–37; TEMP 36.6–38.4; O2SAT 92–95
--- NOTE | 2019-06-11 | ECHO_ITS ---
Patient Info Name: Job Mendoza Age: 53 years : 1965 Gender: Male Ht: 71 in Wt: 226 lbs BSA: 2.29 m2 HR: 94 bpm BP: 142 / 96 mmHg Heart Rhythm: Sinus Rhythm Technical Quality: Fair Exam Date: 06/11/2019 11:02 AM Exam Location: [facility] Patient Status: Inpatient Admit Date: 06/07/2019 Staff Ordering Physician: Panda Salazar MD Tail Ripper: Collin Downs RDCS Attending Provider: Malinda Morejon PA-C Exam Type: CA echo doppler color flow Study Info Indications R06.02 - Shortness of breath Complete two-dimensional, color flow and Doppler transthoracic echocardiogram is performed. History/Risk Factors Afib; PNA, acute respiratory failure, HTN, DM2. COVID-19+. Summary 1. Technically difficult study with limited views. 2. Grade I diastolic dysfunction of the left ventricle (impaired relaxation pattern). 3. Left ventricular chamber dimension is normal. 4. Mild sclerosis of the mitral valve. 5. Left ventricular systolic function is normal with an estimated ejection fraction of 5560.0 %. Left Ventricle Grade I diastolic dysfunction of the left ventricle (impaired relaxation pattern). Left ventricular chamber dimension is normal. Left ventricular wall thickness is normal. Left ventricular systolic function is normal with an estimated ejection fraction of 5560.0 %. Left Atria Left atrial chamber dimension is normal. Right Atria Right atrial chamber dimension is normal. Aortic Valve Aortic valve is not well visualized. Pulmonic Valve Pulmonary valve is not well visualized. Mitral Valve Mild sclerosis of the mitral valve. Tricuspid Valve The tricuspid valve is not well visualized. Pericardium/Pleural Pericardium is normal in appearance with no evidence for significant pericardial effusion. Left Ventricular Outflow Tract Name Value Normal LVOT Doppler LVOT Peak Gradient 4 mmHg LVOT Mean Gradient 2 mmHg LVOT VTI 16 cm LVOT VTI/AV VTI Ratio 0.8 Mitral Valve Name Value Normal MV Doppler MV Decel Scott 208 cm/s2 MV PHT 65 ms MV Area (PHT) 3.4 cm2 4.0-5.0 MV Diastolic Function MV E Peak Velocity 46 cm/s MV A Peak Velocity 67 cm/s MV E/A 0.7 MV Decel Time 223 ms MV Annular TDI MV E/e' (Septal) 5.1 <=8.0 MV E/e' (Lateral) 3.8 <=8.0 MV E/e' (Average) 4.5 Tricuspid Valve Name
[2019-06-11] MEDS: DILTIAZEM HCL 60 MG TABLET PO ×3 (04:47→17:11)
[2019-06-11] MEDS: ACETAMINOPHEN 325 MG TABLET 650 MG PO ×2 (04:47→20:57)
[2019-06-11 04:58] LABS: Hematocrit 36.1 % (42.0-52.0); Hemoglobin 11.9 g/dL (14.0-18.0); Mean Corpuscular Volume 87.8 fl (80-100); Mean Platelet Volume 10.1 fl (7.4-10.4); Platelet Count Result 360 k/mm3 (150-375); Red Blood Count 4.11 M/mm3 (4.6-6.20); Red Cell Distribution Width 11.9 % (11.5-14.5); White Blood Count 8.5 K/mm3 (4.5-10.0)
[2019-06-11 05:19] LABS: LDL Cholesterol Direct 53 mg/dL
[2019-06-11 05:23] LABS: Blood Urea Nitrogen 11 mg/dL (9-20); Calcium 8.4 mg/dL (8.4-10.2); Carbon Dioxide 29 mmol/L (22-30); Chloride 92 mmol/L (98-107); Cholesterol 95 mg/dL (0-200); Estimated CRCL calculation 146 ml/min; Estimated Glomerular Filt Rate > 60; Glucose 254 mg/dL (75-110); Lactate Dehydrogenase 1319 U/L (313-618); Potassium 4.4 mmol/L (3.4-5.0); Sodium 130 mmol/L (137-145); Triglycerides 73 mg/dL (<150)
[2019-06-11 05:30] LABS: HDL Direct 15 mg/dL
[2019-06-11 06:03] LABS: CRP 34.1 mg/dL (<1.0)
[2019-06-11] MEDS: ASPIRIN 325 MG ENTERIC TABLET PO (08:15)
[2019-06-11] MEDS: allopurinoL 100 MG TABLET PO (08:16)
[2019-06-11] MEDS: lisinopriL 5 MG TABLET PO (08:16)
--- NOTE | 2019-06-11 08:16 | PM.PNCARD ---
Progress Note: A&P Assessment and Plan (1) Atrial fibrillation with RVR: Code(s): I48.91 - Unspecified atrial fibrillation Status: Acute Assessment and Plan: On Cardizem to 60 mg every 6 hours for better rate controlled, he has chads Vasc score of 2, however he is back in sinus rhythm, will start him on full-dose aspirin for now, consider anticoagulation later on if he has any recurrence of AFib or if his echo shows any significant structural heart disease. Will get echocardiogram to evaluate current left ventricular systolic function (structural heart disease if that is feasible (2) COVID-19 virus detected: Code(s): U07.1 - COVID-19 Status: Acute Assessment and Plan: Currently on isolation, he is not in acute respiratory distress at this time (3) Acute respiratory failure with hypoxia: Code(s): J96.01 - Acute respiratory failure with hypoxia Status: Acute Assessment and Plan: Improved since admission (4) Hyperlipidemia: Code(s): E78.5 - Hyperlipidemia, unspecified Status: Acute (5) Hypertension: Code(s): I10 - Essential (primary) hypertension Status: Acute Subjective Date/time seen: 06/11/19 08:16 He feels okay today, maintain sinus rhythm, still with mild shortness of breath currently on oxygen Exam Narrative: Exam Narrative: Awake alert oriented x3 not in acute distress, currently he is in intensive care unit, with Covert 19 isolation Neck is supple no obvious JVD, no carotid bruit Extremities: No edema has good pulses distally bilaterally Objective Data Vital Signs Vital Signs: Vital Signs - 24 hr 06/10/19 09:30 06/10/19 10:46 06/10/19 12:00 Temperature 38.0 C H Pulse Rate 91 103 H Respiratory Rate 27 H Blood Pressure 143/93 H Pulse Oximetry 95 93 06/10/19 12:40 06/10/19 13:40 06/10/19 14:00 Temperature 38.0 C H 38.2 C H Pulse Rate 96 Respiratory Rate Blood Pressure Pulse Oximetry 06/10/19 16:00 06/10/19 18:00 06/10/19 18:52 Temperature 38.4 C H 38.4 C H Pulse Rate 96 98 Respiratory Rate 24 H Blood Pressure 140/83 Pulse Oximetry 95 06/10/19 20:00 06/10/19 22:00 06/11/19 00:00 Temperature 36.9 C 37.3 C Pulse Rate 94 82 90 Respiratory Rate 26 H 31 H Blood Pressure 135/87 143/77 H Pulse Oximetry 94 95 06/11/19 02:00 06/11/19 04:00 06/11/19 04:47 Temperature 38.2 C H 38.2 C H Pulse Rate 92 98 Respiratory Rate 32 H Blood Pressure 151/84 H Pulse Oximetry 94 06/11/19 05:30 06/11/19 06:00 Temperature 37.2 C Pulse Rate 89 Respiratory Rate Blood Pressure Pulse Oximetry Intake/Output Intake/Output: Intake & Output 06/08/19 06/09/19 06/10/19 06/11/19 23:59 23:59 23:59 23:59 Intake Total 1360 1500 1930 300 Output Total 1029 970 7166 600 Balance 160 600 680 -300 Meds/Results Medications: Active Medications Generic Name Dose Route Start Last Admin Trade Name Freq PRN Reason Stop Dose Admin Acetaminophen 650 mg 06/08/19 18:34 06/11/19 04:47 Tylenol Tablet PO 650 mg Q6H PRN Administration Mild Pain (1-3) or Fever Albuterol 2 puff 06/09/19 03:34 Proventil Hfa INHALATION QIDRT PRN Shortness Of Breath Allopurinol 100 mg 06/08/19 08:00 06/10/19 07:45 Zyloprim PO 100 mg DAILY@0800 DAI Administration Aspirin 325 mg 06/11/19 09:00 Aspirin Ec PO QAM DAI Dextrose 12.5 gm 06/07/19 21:18 Dextrose 50% Syringe IV PUSH PRN PRN Hypoglycemia Protocol Diltiazem HCl 60 mg 06/10/19 12:00 06/11/19 04:47 Cardizem Tab PO 60 mg Q6HR DAI Administration Glucagon 1 mg 06/07/19 21:18 Glucagon For Inj IM PRN PRN Hypoglycemia Protocol Glucose 15 gm 06/07/19 21:18 Glutose 15 PO PRN PRN Hypoglycemia Protocol Dextrose 1,000 mls @ 100 mls/hr 06/07/19 21:18 Dextrose 5% 1,000 Ml IVPB PRN PRN Hypoglycemia Protocol
[2019-06-11] MEDS: INSULIN ASPART (*BKC) 100 UNITS/ML SUB-Q ×3 (08:47→18:01)
[2019-06-11 08:55] LABS: Glucose Point of Care 245 (65-105)
--- NOTE | 2019-06-11 11:51 | PCDIET ---
Nutrition Follow-Up Complete: Nutrition Diagnosis: Inadequate oral intake related to pneumonia as evidenced poor intake reported and weight loss of 14-23 pounds in the past 3 months. Nutrition Goal: Adequate Intake of at least 75% of meals/supplements Goal in progress. Patient consumed average of 60% of meals, but not accepting Glucerna Shakes. Recommend discontinuing supplement and encouraging oral intake. Last recorded weight is 102.3 kg which is increased. +I/O. Bowel Motility: No documented bowel movement. Labs Reviewed: LDH (1319), CRP (34.1), Glu (254), Na (130), Alb (3.4) Meds Noted: Albuterol, Allopurinol, Azithromycin, Rocephin, Novolog Additional Notes: No documented skin breakdown. Will continue to monitor with same goal of intakes 75% or greater. Nutrition Monitoring and Evaluation: Will monitor every 5 days.
[2019-06-11 12:17] LABS: Glucose Point of Care 267 (65-105)
--- NOTE | 2019-06-11 16:15 | PM.IMPN ---
Progress Note: A&P Assessment and Plan (1) COVID-19 virus detected: Code(s): U07.1 - COVID-19 Status: Acute Assessment and Plan: -----COVID-19 positive with bilateral pneumonia and hypoxia. Patient appears much worse today and had significant stridor with air hunger just with sitting up for the exam. He was on 15 L high-flow during this and a non rebreather was applied and he was given albuterol. During this time his saturations were a in the low 80s but after he received this treatment he was above 90. Very little activity prompted this. It looks like his albuterol inhaler was there p.r.n. and has not been given once during this hospitalization. I have changed it to scheduled to prevent this from being overlooked. This was discussed with the swing shift PAYakelin who has spoken with Dr. Patel. Airvo may be an option for this patient if need be. He also is a high risk for intubation at this time. Will obtain CXR now. (2) Bilateral pneumonia: Qualifiers: Lung location: lower lobe of lung Pneumonia type: due to unspecified organism Qualified Code(s): J18.9 - Pneumonia, unspecified organism Code(s): J18.9 - Pneumonia, unspecified organism Status: Acute Assessment and Plan: -----d/t COVID-19. New CXR is still pending. LDH better, CRP worse. Continue azithromycin and ceftriaxone at this time. Continue albuterol MDI now scheduled. (3) Hypokalemia: Code(s): E87.6 - Hypokalemia Status: Acute Assessment and Plan: -----potassium within normal limits today. Monitor (4) Acute respiratory failure with hypoxia: Code(s): J96.01 - Acute respiratory failure with hypoxia Status: Acute Assessment and Plan: -----continue oxygen to keep saturations greater than 90 and the patient comfortable. Should his oxygen requirements continue to increase, may need intubation. He is on continuous pulse ox therapy (5) Transaminasemia: Code(s): R74.0 - Nonspecific elevation of levels of transaminase and lactic acid dehydrogenase [LDH] Status: Acute Assessment and Plan: -----no history of alcohol abuse or liver disease. 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 A1c is 11.3 so he is uncontrolled at baseline. Will add back his basal insulin if he trends high. Last glucose 267 (7) Hypertension: Code(s): I10 - Essential (primary) hypertension Status: Acute Assessment and Plan: -----last blood pressure 153/75 Continue lisinopril and now Cardizem (8) Hyperlipidemia: Code(s): E78.5 - Hyperlipidemia, unspecified Status: Acute Assessment and Plan: -----statin held. (9) Atrial fibrillation with RVR: Code(s): I48.91 - Unspecified atrial fibrillation Status: Acute Assessment and Plan: -----patient went and AFib RVR but is currently in normal sinus rhythm. He was started on oral diltiazem and Dr. Salazar has been consulted. His CHADS2 Vasc score is 2 but because of this likely being due to infection, Dr. Salazar recommends aspirin 325 as stroke prophylaxis. This is temporary and if he continues to be in AFib he will be switched to Coumadin. EKG reviewed without any significant ST abnormalities. QTC 430 (10) Hyponatremia: Code(s): E87.1 - Hypo-osmolality and hyponatremia Status: Acute Assessment and Plan: -----134 when corrected for hypoglycemia. Likely d/t infection. Monitor. Subjective Date/time seen: 06/11/19 16:15 Interval history: Pt is a 53-year-old male here for viral pneumonia due to COVID-19. Patient wa
[2019-06-11 17:23] LABS: Glucose Point of Care 254 (65-105)
[2019-06-12] VITALS (15 sets, daily range): BP systolic 128–158; BP diastolic 65–88; PULSE 85–105; RESP 22–36; TEMP 36.4–37.5; O2SAT 89–97
[2019-06-12] MEDS: DILTIAZEM HCL 60 MG TABLET PO ×5 (00:10→22:56)
[2019-06-12 04:47] LABS: Hematocrit 34.3 % (42.0-52.0); Hemoglobin 11.3 g/dL (14.0-18.0); Mean Corpuscular HGB Conc 32.9 g/dl (32-36); Mean Corpuscular Hemoglobin 28.9 pg (26-34); Mean Corpuscular Volume 87.7 fl (80-100); Platelet Count Result 378 k/mm3 (150-375); Red Blood Count 3.91 M/mm3 (4.6-6.20); Red Cell Distribution Width 11.9 % (11.5-14.5); White Blood Count 7.5 K/mm3 (4.5-10.0)
[2019-06-12 05:06] LABS: Alanine Aminotransferase 89 U/L (4-50); Albumin Level 3.2 g/dL (3.5-5.1); Alkaline Phosphatase 44 U/L (38-126); Aspartate Amino Transferase 50 U/L (17-59); Bilirubin,Total 0.8 mg/dL (0.2-1.3); Blood Urea Nitrogen 13 mg/dL (9-20); Calcium 8.6 mg/dL (8.4-10.2); Carbon Dioxide 32 mmol/L (22-30); Chloride 93 mmol/L (98-107); Estimated CRCL calculation 146 ml/min; Estimated Glomerular Filt Rate > 60; Glucose 274 mg/dL (75-110); Potassium 4.3 mmol/L (3.4-5.0); Sodium 131 mmol/L (137-145)
[2019-06-12 05:07] LABS: Glucose Point of Care 242 (65-105)
[2019-06-12] MEDS: lisinopriL 5 MG TABLET PO (08:21)
[2019-06-12] MEDS: ASPIRIN 325 MG ENTERIC TABLET PO (08:21)
[2019-06-12] MEDS: allopurinoL 100 MG TABLET PO (08:22)
[2019-06-12 08:28] LABS: Glucose Point of Care 267 (65-105)
[2019-06-12] MEDS: INSULIN ASPART (*BKC) 100 UNITS/ML SUB-Q ×3 (08:31→17:21)
--- NOTE | 2019-06-12 10:19 | PM.PNCARD ---
Progress Note: A&P Assessment and Plan (1) Atrial fibrillation with RVR: Code(s): I48.91 - Unspecified atrial fibrillation Status: Acute Assessment and Plan: Pt remains in NSR. ECHO showed normal LV sytolic function (LVEF 55-60%) and diastolic dysfunction. Cont cardizem No anticoagulation for now. Cont ASA (2) COVID-19 virus detected: Code(s): U07.1 - COVID-19 Status: Acute Assessment and Plan: management per PC (3) Hyperlipidemia: Code(s): E78.5 - Hyperlipidemia, unspecified Status: Acute (4) Hypertension: Code(s): I10 - Essential (primary) hypertension Status: Acute Assessment and Plan: currently well controlled cont meds (5) Bilateral pneumonia: Qualifiers: Lung location: lower lobe of lung Pneumonia type: due to unspecified organism Qualified Code(s): J18.9 - Pneumonia, unspecified organism Code(s): J18.9 - Pneumonia, unspecified organism Status: Acute Assessment and Plan: management per Subjective Date/time seen: 06/12/19 10:19 Pt's case was d/w pt's nurse, chart was reviewed. According to his nurse pt remains in NSR. His respiratory distress is managed with high flow oxygen. Pt had ECHO done yesterday. Exam Narrative: Exam Narrative: not performed. Objective Data Vital Signs Vital Signs: Vital Signs - 24 hr 06/11/19 12:00 06/11/19 14:00 06/11/19 16:00 Temperature 36.6 C 36.6 C Pulse Rate 97 89 102 H Respiratory Rate 26 H 37 H Blood Pressure 139/85 153/75 H Pulse Oximetry 94 93 06/11/19 18:00 06/11/19 20:00 06/11/19 20:19 Temperature 38.4 C H Pulse Rate 103 H 93 99 Respiratory Rate 26 H 30 H Blood Pressure 140/81 Pulse Oximetry 94 92 06/11/19 20:57 06/11/19 22:00 06/11/19 22:18 Temperature 38.4 C H 37.3 C Pulse Rate 89 Respiratory Rate Blood Pressure Pulse Oximetry 06/12/19 00:00 06/12/19 02:00 06/12/19 04:00 Temperature 37.1 C 37.3 C Pulse Rate 91 95 95 Respiratory Rate 28 H 28 H Blood Pressure 128/79 150/88 H Pulse Oximetry 93 91 06/12/19 06:00 06/12/19 08:00 Temperature 36.6 C Pulse Rate 86 85 Respiratory Rate 32 H Blood Pressure 158/88 H Pulse Oximetry 97 Intake/Output Intake/Output: Intake & Output 06/09/19 06/10/19 06/11/19 06/12/19 23:59 23:59 23:59 23:59 Intake Total 1500 1930 1230 760 Output Total 900 1250 1350 650 Balance 600 680 -120 110 Meds/Results Medications: Active Medications Generic Name Dose Route Start Last Admin Trade Name Freq PRN Reason Stop Dose Admin Acetaminophen 650 mg 06/08/19 18:34 06/11/19 20:57 Tylenol Tablet PO 650 mg Q6H PRN Administration Mild Pain (1-3) or Fever Albuterol 2 puff 06/11/19 20:00 06/11/19 20:14 Proventil Hfa INHALATION 2 puff QIDRT DAI Administration Allopurinol 100 mg 06/08/19 08:00 06/12/19 08:22 Zyloprim PO 100 mg DAILY@0800 DAI Administration Aspirin 325 mg 06/11/19 09:00 06/12/19 08:21 Aspirin Ec PO 325 mg QAM DAI Administration Dextrose 12.5 gm 06/07/19 21:18 Dextrose 50% Syringe IV PUSH PRN PRN Hypoglycemia Protocol Diltiazem HCl 60 mg 06/10/19 12:00 06/12/19 04:39 Cardizem Tab PO 60 mg Q6HR DAI Administration Glucagon 1 mg 06/07/19 21:18 Glucagon For Inj IM PRN PRN Hypoglycemia Protocol Glucose 15 gm 06/07/19 21:18 Glutose 15 PO PRN PRN Hypoglycemia Protocol Guaifenesin 600 mg 06/11/19 21:00 06/12/19 08:21 Mucinex 12 Hr Tab PO 600 mg Q12HR DAI Administration Dextrose 1,000 mls @ 100 mls/hr 06/07/19 21:18 Dextrose 5% 1,000 Ml IVPB PRN PRN Hypoglycemia Protocol Ceftriaxone Sodium/Dextrose 1 gm in 50 mls @ 100 mls/hr 06/08/19 14:00 06/11/19 14:30 Rocephin 1 Gm/D5w 50 Ml IVPB Infused Q24H DAI Infusion Azithromycin 500 mg in 250 mls @ 250 mls/hr 06/08/19 15:00 06/11/19 14:40
[2019-06-12 11:58] LABS: Glucose Point of Care 262 (65-105)
--- NOTE | 2019-06-12 14:07 | PM.IMPN ---
Progress Note: A&P Assessment and Plan (1) Acute respiratory failure with hypoxia: Code(s): J96.01 - Acute respiratory failure with hypoxia Status: Acute Assessment and Plan: Result of pneumonia. Clinically slowly improving although still remains on 15 L high-flow oxygen. Continue treatment of pneumonia as noted below. Telemetry reviewed on 06/12/2019 with sinus rhythm with heart rate controlled. Will monitor closely. (2) Bilateral pneumonia: Qualifiers: Lung location: lower lobe of lung Pneumonia type: due to unspecified organism Qualified Code(s): J18.9 - Pneumonia, unspecified organism Code(s): J18.9 - Pneumonia, unspecified organism Status: Acute Assessment and Plan: Result of COVID-19. Follow-up chest x-ray on 06/11/2019 with stable extensive bilateral airspace disease. IV ceftriaxone and azithromycin. Continue scheduled albuterol MDI. LDH improving. CRP at 34.1 on 06/11/2019. Continue to follow. (3) COVID-19 virus detected: Code(s): U07.1 - COVID-19 Status: Acute Assessment and Plan: Testing initiated with bilateral pneumonia and hypoxia. COVID-19 testing is positive. Continue respiratory treatments as noted above. 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 Glucose reviewed on 06/12/2019 and remains elevated in the 200s. Will restart Lantus. Continue sliding scale insulin. Will continue to monitor and adjust treatment as needed. (5) Hypokalemia: Code(s): E87.6 - Hypokalemia Status: Acute Assessment and Plan: Potassium remains normal at 4.3 today. Will follow. (6) Transaminasemia: Code(s): R74.0 - Nonspecific elevation of levels of transaminase and lactic acid dehydrogenase [LDH] Status: Acute Assessment and Plan: Result of infection with LFTs improving. Will monitor. \ (7) Atrial fibrillation with RVR: Code(s): I48.91 - Unspecified atrial fibrillation Status: Acute Assessment and Plan: Cardiology consulted and appreciate input. Converted back to sinus rhythm with telemetry on 06/12/2019 showing continued sinus rhythm. Echocardiogram with EF 55-60% and diastolic dysfunction. Will continue diltiazem. Continue ASA. Will monitor. (8) Hypertension: Qualifiers: Hypertension type: essential hypertension Qualified Code(s): I10 - Essential (primary) hypertension Code(s): I10 - Essential (primary) hypertension Status: Acute Assessment and Plan: Blood pressure reviewed on 06/12/2019 and stable. Will continue to monitor on diltiazem and lisinopril. (9) Hyperlipidemia: Qualifiers: Hyperlipidemia type: unspecified Qualified Code(s): E78.5 - Hyperlipidemia, unspecified Code(s): E78.5 - Hyperlipidemia, unspecified Status: Acute Assessment and Plan: Atorvastatin remains on hold. (10) Hyponatremia: Code(s): E87.1 - Hypo-osmolality and hyponatremia Status: Acute Assessment and Plan: Stable at 131. Will monitor. (11) DVT prophylaxis: Code(s): Z29.9 - Encounter for prophylactic measures, unspecified Status: Acute Assessment and Plan: SCDs. Time Spent With Patient Time with patient: 15 - 25 minutes Subjective Date/time seen: 06/12/19 14:07 Interval history: Date if Service: 06/12/2019. Admitted with acute respiratory failure, viral pneumonia due to COVID-19. Subsequently also with atrial fibrillation with RVR. Today. Still has cough and shortness of breath although improving. No chest pressure. No abdominal pain. No nausea or vomiting. No headache. Review of Systems Review of Systems: Narrative: Feeling better. Constitutional: Constitutional: Reports fever(s) (Up
[2019-06-12 16:50] LABS: Glucose Point of Care 285 (65-105)
[2019-06-12] MEDS: INSULIN GLARGINE (*BKC) 100 UNITS/ML 20 UNITS SUB-Q (20:06)
[2019-06-12] MEDS: ACETAMINOPHEN 325 MG TABLET 650 MG PO (20:08)
[2019-06-12 20:28] LABS: Glucose Point of Care 198 (65-105)
[2019-06-13] VITALS (19 sets, daily range): BP systolic 121–155; BP diastolic 48–90; PULSE 84–103; RESP 19–34; TEMP 36.6–37.4; O2SAT 93–98
[2019-06-13] MEDS: ACETAMINOPHEN 325 MG TABLET 650 MG PO ×2 (06:36→21:18)
[2019-06-13] MEDS: DILTIAZEM HCL 60 MG TABLET PO ×4 (06:37→23:00)
[2019-06-13 06:45] LABS: Hematocrit 33.3 % (42.0-52.0); Hemoglobin 11.1 g/dL (14.0-18.0); Mean Corpuscular HGB Conc 33.3 g/dl (32-36); Mean Corpuscular Hemoglobin 28.7 pg (26-34); Mean Platelet Volume 10.2 fl (7.4-10.4); Platelet Count Result 399 k/mm3 (150-375); Red Blood Count 3.87 M/mm3 (4.6-6.20); White Blood Count 7.1 K/mm3 (4.5-10.0)
[2019-06-13] MEDS: allopurinoL 100 MG TABLET PO (08:48)
[2019-06-13] MEDS: ASPIRIN 325 MG ENTERIC TABLET PO (08:48)
[2019-06-13] MEDS: lisinopriL 5 MG TABLET PO (08:49)
[2019-06-13 09:01] LABS: Alanine Aminotransferase 106 U/L (4-50); Albumin Level 3.1 g/dL (3.5-5.1); Alkaline Phosphatase 50 U/L (38-126); Aspartate Amino Transferase 85 U/L (17-59); Bilirubin,Total 0.7 mg/dL (0.2-1.3); Blood Urea Nitrogen 11 mg/dL (9-20); CRP 33.4 mg/dL (<1.0); Calcium 8.7 mg/dL (8.4-10.2); Carbon Dioxide 32 mmol/L (22-30); Chloride 93 mmol/L (98-107); Estimated CRCL calculation 146 ml/min; Estimated Glomerular Filt Rate > 60; Glucose 238 mg/dL (75-110); Lactate Dehydrogenase 919 U/L (313-618); Magnesium 2.2 mg/dL (1.6-2.3); Potassium 4.1 mmol/L (3.4-5.0); Sodium 131 mmol/L (137-145)
[2019-06-13 09:09] LABS: Glucose Point of Care 268 (65-105)
--- NOTE | 2019-06-13 09:24 | PM.PNCARD ---
Progress Note: A&P Assessment and Plan (1) Atrial fibrillation with RVR: Code(s): I48.91 - Unspecified atrial fibrillation Status: Acute Assessment and Plan: pt had episode of AFIB with RVR during this admission. He converted to NSR and remains in NSR. ECHO showed normal LV systolic function and diastolic dysfunction cont Cardizem for HR control Cont ASA for now. (2) COVID-19 virus detected: Code(s): U07.1 - COVID-19 Status: Acute Assessment and Plan: Management per PC (3) Acute respiratory failure with hypoxia: Code(s): J96.01 - Acute respiratory failure with hypoxia Status: Acute Assessment and Plan: Management per PC (4) Hypertension: Qualifiers: Hypertension type: essential hypertension Qualified Code(s): I10 - Essential (primary) hypertension Code(s): I10 - Essential (primary) hypertension Status: Acute Assessment and Plan: well controlled cont meds Subjective Date/time seen: 06/13/19 09:24 Case was d/w pr's nurse, chart was reviewed. Pt remains in NSR. Still tachypnea (RR 28-30/min). Hemodynamically stable. Does not require vasopressors. Pt is trying to eat. Exam Narrative: Exam Narrative: not performed Objective Data Vital Signs Vital Signs: Vital Signs - 24 hr 06/12/19 10:00 06/12/19 12:00 06/12/19 14:00 Temperature 36.4 C L Pulse Rate 97 98 97 Respiratory Rate 25 H Blood Pressure 142/65 H Pulse Oximetry 96 06/12/19 16:00 06/12/19 18:00 06/12/19 19:46 Temperature 37.5 C Pulse Rate 98 99 101 H Respiratory Rate 36 H 28 H Blood Pressure 139/85 Pulse Oximetry 90 89 L 06/12/19 20:00 06/12/19 20:08 06/12/19 22:00 Temperature 37.3 C 37.3 C Pulse Rate 94 87 Respiratory Rate 26 H Blood Pressure 137/77 Pulse Oximetry 95 06/13/19 00:00 06/13/19 02:00 06/13/19 04:00 Temperature 37.4 C 37.2 C Pulse Rate 85 84 90 Respiratory Rate 25 H 28 H Blood Pressure 132/84 155/82 H Pulse Oximetry 94 93 06/13/19 06:00 06/13/19 06:36 06/13/19 08:12 Temperature 37.3 C Pulse Rate 103 H 101 H Respiratory Rate 19 Blood Pressure Pulse Oximetry 06/13/19 08:16 Temperature Pulse Rate 97 Respiratory Rate 28 H Blood Pressure Pulse Oximetry 95 Intake/Output Intake/Output: Intake & Output 06/10/19 06/11/19 06/12/19 06/13/19 23:59 23:59 23:59 23:59 Intake Total 1930 1480 2020 350 Output Total 1250 1350 1300 750 Balance 680 130 720 -400 Meds/Results Medications: Active Medications Generic Name Dose Route Start Last Admin Trade Name Freq PRN Reason Stop Dose Admin Acetaminophen 650 mg 06/08/19 18:34 06/13/19 06:36 Tylenol Tablet PO 650 mg Q6H PRN Administration Mild Pain (1-3) or Fever Albuterol 2 puff 06/11/19 20:00 06/13/19 08:12 Proventil Hfa INHALATION 2 puff QIDRT DAI Administration Allopurinol 100 mg 06/08/19 08:00 06/13/19 08:48 Zyloprim PO 100 mg DAILY@0800 DAI Administration Aspirin 325 mg 06/11/19 09:00 06/13/19 08:48 Aspirin Ec PO 325 mg QAM DAI Administration Dextrose 12.5 gm 06/07/19 21:18 Dextrose 50% Syringe IV PUSH PRN PRN Hypoglycemia Protocol Diltiazem HCl 60 mg 06/10/19 12:00 06/13/19 06:37 Cardizem Tab PO 60 mg Q6HR DAI Administration Glucagon 1 mg 06/07/19 21:18 Glucagon For Inj IM PRN PRN Hypoglycemia Protocol Glucose 15 gm 06/07/19 21:18 Glutose 15 PO PRN PRN Hypoglycemia Protocol Guaifenesin 600 mg 06/11/19 21:00 06/13/19 08:48 Mucinex 12 Hr Tab PO 600 mg Q12HR DAI Administration Dextrose 1,000 mls @ 100 mls/hr 06/07/19 21:18 Dextrose 5% 1,000 Ml IVPB PRN PRN Hypoglycemia Protocol Ceftriaxone Sodium/Dextrose 1 gm in 50 mls @ 100 mls/hr 06/08/19 14:00 06/12/19 14:41 Rocephin 1 Gm/D5w 50 Ml IVPB Infused Q24H DAI Infusion Azithromycin 500 mg in 25
--- NOTE | 2019-06-13 14:40 | PM.IMPN ---
Progress Note: A&P Assessment and Plan (1) Acute respiratory failure with hypoxia: Code(s): J96.01 - Acute respiratory failure with hypoxia Status: Acute Assessment and Plan: Result of pneumonia. Clinically continues to slowly improve although still remains on 15 L high-flow oxygen. Having patient try being in prone position as long as he tolerates. Continue treatment of pneumonia as noted below. Telemetry reviewed on 06/13/2019 with sinus rhythm with heart rate controlled. Will continue to monitor closely. (2) Bilateral pneumonia: Qualifiers: Lung location: lower lobe of lung Pneumonia type: due to unspecified organism Qualified Code(s): J18.9 - Pneumonia, unspecified organism Code(s): J18.9 - Pneumonia, unspecified organism Status: Acute Assessment and Plan: Result of COVID-19. Follow-up chest x-ray on 06/11/2019 with stable extensive bilateral airspace disease. Will repeat chest xray in am. Continue IV ceftriaxone and azithromycin. Continue scheduled albuterol MDI. LDH improving at 919 today. CRP still high but better at 33.4 today. Continue to follow. (3) COVID-19 virus detected: Code(s): U07.1 - COVID-19 Status: Acute Assessment and Plan: Testing initiated with bilateral pneumonia and hypoxia. COVID-19 testing is positive. Continue respiratory treatments as noted above. 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 Glucose reviewed on 06/13/2019 . Levels remain elevated in the 200s. Will increase Lantus back to home dose. Continue sliding scale insulin. Will continue to monitor and adjust treatment as needed. (5) Hypokalemia: Code(s): E87.6 - Hypokalemia Status: Acute Assessment and Plan: Potassium remains normal at 4.1 today. Will follow. (6) Transaminasemia: Code(s): R74.0 - Nonspecific elevation of levels of transaminase and lactic acid dehydrogenase [LDH] Status: Acute Assessment and Plan: Result of infection. AST and ALT still slightly elevated but improved from admission. Will continue to monitor periodically. (7) Atrial fibrillation with RVR: Code(s): I48.91 - Unspecified atrial fibrillation Status: Acute Assessment and Plan: Cardiology consulted and appreciate input. Converted back to sinus rhythm with telemetry on 06/13/2019 reviewed and still showing sinus rhythm. Echocardiogram with EF 55-60% and diastolic dysfunction. Will continue diltiazem. Continue ASA. Will monitor. (8) Hypertension: Qualifiers: Hypertension type: essential hypertension Qualified Code(s): I10 - Essential (primary) hypertension Code(s): I10 - Essential (primary) hypertension Status: Acute Assessment and Plan: Blood pressure reviewed on 06/13/2019 and remains stable. Will continue to monitor on diltiazem and lisinopril. (9) Hyperlipidemia: Qualifiers: Hyperlipidemia type: unspecified Qualified Code(s): E78.5 - Hyperlipidemia, unspecified Code(s): E78.5 - Hyperlipidemia, unspecified Status: Acute Assessment and Plan: Atorvastatin remains on hold. (10) Hyponatremia: Code(s): E87.1 - Hypo-osmolality and hyponatremia Status: Acute Assessment and Plan: Sodium unchanged and stable at 131. Will monitor. (11) DVT prophylaxis: Code(s): Z29.9 - Encounter for prophylactic measures, unspecified Status: Acute Assessment and Plan: SCDs. Time Spent With Patient Time with patient: 15 - 25 minutes Subjective Date/time seen: 06/13/19 14:40 Interval history: Date if Service: 06/13/2019. Admitted with acute respiratory failure, viral pneumonia due to COVID-19. Subsequently also with atrial fibril
[2019-06-13 15:14] LABS: Glucose Point of Care 262 (65-105)
[2019-06-13 19:27] LABS: Glucose Point of Care 239 (65-105)
[2019-06-13] MEDS: INSULIN ASPART (*BKC) 100 UNITS/ML SUB-Q ×3 (19:28→19:29)
[2019-06-13] MEDS: INSULIN GLARGINE (*BKC) 100 UNITS/ML 34 UNITS SUB-Q (20:28)
[2019-06-13 23:39] LABS: Glucose Point of Care 264 (65-105)
[2019-06-14] VITALS (16 sets, daily range): BP systolic 120–149; BP diastolic 78–90; PULSE 78–106; RESP 23–30; TEMP 37.1–37.7; O2SAT 88–97
[2019-06-14] MEDS: DILTIAZEM HCL 60 MG TABLET PO ×4 (06:16→23:42)
[2019-06-14 06:30] LABS: Hematocrit 32.6 % (42.0-52.0); Hemoglobin 10.4 g/dL (14.0-18.0); Mean Corpuscular HGB Conc 31.9 g/dl (32-36); Mean Corpuscular Hemoglobin 28.6 pg (26-34); Mean Corpuscular Volume 89.6 fl (80-100); Mean Platelet Volume 10.4 fl (7.4-10.4); Platelet Count Result 471 k/mm3 (150-375); Red Blood Count 3.64 M/mm3 (4.6-6.20); Red Cell Distribution Width 12.3 % (11.5-14.5); White Blood Count 8.4 K/mm3 (4.5-10.0)
[2019-06-14 06:33] LABS: Blood Urea Nitrogen 10 mg/dL (9-20); Calcium 8.7 mg/dL (8.4-10.2); Carbon Dioxide 32 mmol/L (22-30); Chloride 94 mmol/L (98-107); Estimated CRCL calculation 172 ml/min; Estimated Glomerular Filt Rate > 60; Glucose 222 mg/dL (75-110); Potassium 4.1 mmol/L (3.4-5.0); Sodium 132 mmol/L (137-145)
[2019-06-14] MEDS: ASPIRIN 325 MG ENTERIC TABLET PO (09:50)
[2019-06-14] MEDS: allopurinoL 100 MG TABLET PO (09:50)
[2019-06-14] MEDS: lisinopriL 5 MG TABLET PO (09:50)
[2019-06-14] MEDS: INSULIN GLARGINE (*BKC) 100 UNITS/ML 34 UNITS SUB-Q ×2 (10:09→19:39)
[2019-06-14 12:31] LABS: Glucose Point of Care 196 (65-105)
--- NOTE | 2019-06-14 13:04 | PM.IMPN ---
Progress Note: A&P Assessment and Plan (1) Acute respiratory failure with hypoxia: Code(s): J96.01 - Acute respiratory failure with hypoxia Status: Acute Assessment and Plan: Result of pneumonia due to COVID-19. Patient still with desaturations at times. Will try transition to other form of high flow therapy. Continue treatment of pneumonia as noted below. Will continue to monitor closely. (2) Bilateral pneumonia: Qualifiers: Lung location: lower lobe of lung Pneumonia type: due to unspecified organism Qualified Code(s): J18.9 - Pneumonia, unspecified organism Code(s): J18.9 - Pneumonia, unspecified organism Status: Acute Assessment and Plan: Result of COVID-19. Follow-up chest x-ray, today 06/14/2019, with stable diffuse disease. Will continue IV ceftriaxone and azithromycin. Discussed trying prone position with patient who has been resistant. Will still try to have him try prone position as tolerates. Continue scheduled albuterol MDI. LDH improving at 919 on 06/13/2019. CRP still high but better at 33.4 on 06/13/2019. Continue to follow acute phase reactants periodically. (3) COVID-19 virus detected: Code(s): U07.1 - COVID-19 Status: Acute Assessment and Plan: Testing initiated with bilateral pneumonia and hypoxia. COVID-19 testing is positive. Continue respiratory treatments as noted above. 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 Glucose reviewed on 06/14/2019 with some improvement noted today. Will continue home dose of Lantus. Continue sliding scale insulin. Will continue to monitor and adjust treatment as needed. (5) Hypertension: Qualifiers: Hypertension type: essential hypertension Qualified Code(s): I10 - Essential (primary) hypertension Code(s): I10 - Essential (primary) hypertension Status: Acute Assessment and Plan: Blood pressure reviewed on 06/14/2019. Blood pressure with occasional elevated reading but otherwise stable. Will continue to monitor on diltiazem and lisinopril. (6) Atrial fibrillation with RVR: Code(s): I48.91 - Unspecified atrial fibrillation Status: Acute Assessment and Plan: Cardiology consulted and appreciate input. Review of telemetry on 06/14/2019 with continued sinus rhythm. Echocardiogram with EF 55-60% and diastolic dysfunction. Will continue diltiazem. Continue ASA. Will continue to monitor. (7) Hypokalemia: Code(s): E87.6 - Hypokalemia Status: Acute Assessment and Plan: Potassium remains normal and unchanged at 4.1 today. Will continue to follow. (8) Transaminasemia: Code(s): R74.0 - Nonspecific elevation of levels of transaminase and lactic acid dehydrogenase [LDH] Status: Acute Assessment and Plan: Result of infection. AST and ALT still slightly elevated but improved from admission. Will continue to monitor periodically. (9) Hyperlipidemia: Qualifiers: Hyperlipidemia type: unspecified Qualified Code(s): E78.5 - Hyperlipidemia, unspecified Code(s): E78.5 - Hyperlipidemia, unspecified Status: Acute Assessment and Plan: Continue to hold atorvastatin. (10) Hyponatremia: Code(s): E87.1 - Hypo-osmolality and hyponatremia Status: Acute Assessment and Plan: Sodium remains stable at 132 today. Will continue to monitor. (11) DVT prophylaxis: Code(s): Z29.9 - Encounter for prophylactic measures, unspecified Status: Acute Assessment and Plan: SCDs. Time Spent With Patient Time with patient: 15 - 25 minutes Subjective Date/time seen: 06/14/19 13:04 Interval history: Date if Service: 06/14/2019. Admitted with acute respiratory failure, vir
--- NOTE | 2019-06-14 13:49 | PM.PNCARD ---
Progress Note: A&P Assessment and Plan (1) Atrial fibrillation with RVR: Code(s): I48.91 - Unspecified atrial fibrillation Status: Acute Assessment and Plan: pt had episode of AFIB with RVR during this admission. He converted to NSR and remains in NSR. ECHO showed normal LV systolic function and diastolic dysfunction cont Cardizem for HR control Cont ASA for now. (2) COVID-19 virus detected: Code(s): U07.1 - COVID-19 Status: Acute Assessment and Plan: Management per PC. Chest x-ray with evidence of continued stable diffuse disease consistent with pneumonia versus ARDS. (3) Acute respiratory failure with hypoxia: Code(s): J96.01 - Acute respiratory failure with hypoxia Status: Acute Assessment and Plan: Management per PC (4) Hypertension: Qualifiers: Hypertension type: essential hypertension Qualified Code(s): I10 - Essential (primary) hypertension Code(s): I10 - Essential (primary) hypertension Status: Acute Assessment and Plan: well controlled cont meds Subjective Date/time seen: 06/14/19 13:49 Patient resting comfortably in ICU, asleep. He was feeling better earlier this morning but reported continued shortness of breath and cough, without chest pain or dizziness. He was transitioned to high-flow 50 liter/minute nasal oxygen delivery device given desaturation when his non-rebreather mask would fall off while asleep while also wearing high-flow Oxymizer 15 liters/minute. Patient was seen and case discussed with nurse. Exam Narrative: Exam Narrative: General: Patient resting comfortably in bed asleep, in no acute distress. HEENT: Normocephalic, atraumatic. Chest: no heave. Abdomen: nondistended Extremities: no edema, no cyanosis. Neuro: somnolent, sleeping. arousable. Objective Data Vital Signs Vital Signs: Vital Signs - 24 hr 06/13/19 14:00 06/13/19 16:00 06/13/19 16:40 Temperature 37.3 C Pulse Rate 88 84 87 Respiratory Rate 25 H 22 H Blood Pressure 134/71 Pulse Oximetry 94 06/13/19 18:00 06/13/19 20:00 06/13/19 21:11 Temperature 36.6 C Pulse Rate 89 95 90 Respiratory Rate 20 20 Blood Pressure 121/48 L Pulse Oximetry 96 97 06/13/19 22:00 06/14/19 00:00 06/14/19 02:00 Temperature 37.1 C Pulse Rate 90 78 80 Respiratory Rate 24 H Blood Pressure 126/78 Pulse Oximetry 94 06/14/19 04:00 06/14/19 06:00 06/14/19 08:00 Temperature 37.2 C 37.1 C Pulse Rate 82 90 90 Respiratory Rate 23 H 28 H Blood Pressure 129/84 139/85 Pulse Oximetry 96 92 06/14/19 08:26 06/14/19 13:15 Temperature Pulse Rate Respiratory Rate Blood Pressure Pulse Oximetry 96 93 Intake/Output Intake/Output: Intake & Output 06/11/19 06/12/19 06/13/19 06/14/19 23:59 23:59 23:59 23:59 Intake Total 1480 2020 1340 200 Output Total 1350 1300 1550 1100 Balance 130 720 -210 -900 Meds/Results Medications: Active Medications Generic Name Dose Route Start Last Admin Trade Name Freq PRN Reason Stop Dose Admin Acetaminophen 650 mg 06/08/19 18:34 06/13/19 21:18 Tylenol Tablet PO 650 mg Q6H PRN Administration Mild Pain (1-3) or Fever Albuterol 2 puff 06/11/19 20:00 06/14/19 13:15 Proventil Hfa INHALATION 2 puff QIDRT DAI Administration Allopurinol 100 mg 06/08/19 08:00 06/14/19 09:50 Zyloprim PO 100 mg DAILY@0800 DAI Administration Aspirin 325 mg 06/11/19 09:00 06/14/19 09:50 Aspirin Ec PO 325 mg QAM DAI Administration Dextrose 12.5 gm 06/07/19 21:18 Dextrose 50% Syringe IV PUSH PRN PRN Hypoglycemia Protocol Diltiazem HCl 60 mg 06/10/19 12:00 06/14/19 06:16 Cardizem Tab PO 60 mg Q6HR DAI Administration Glucagon 1 mg 06/07/19 21:18 Glucagon For Inj IM PRN PRN Hypoglycemia Protocol Glucose 15 gm 06/07/19 21:18 Glutose 15 PO PRN PRN Hypoglycemia
[2019-06-14 14:32] LABS: Glucose Point of Care 170 (65-105)
[2019-06-14 20:45] LABS: Glucose Point of Care 258 (65-105)
[2019-06-14 21:45] LABS: Alveolar/Arterial O2 Gradient 498.1 mmHg; Base Excess ABG 6.7 mEq/l (+/-2.0); Carboxyhemoglobin 0.3 % THb (0-2.0); Fractional Inspired Oxygen 85 %; HCO3 ABG 29.7 mEq/l (22.0-26.0); Methemoglobin ABG 0.4 %THb (0-1.5); Oxygen Content ABG 15.7 %vol (16.0-22.0); Oxygen Saturation ABG 95.6 % (95.0-100.0); Oxyhemoglobin 92.9 % THb (90.0-100.0); PO2 ABG 69.6 mmHg (80.0-100.0); PO2 FiO2 Ratio Arterial Blood 0.82 %; Reduced Hemoglobin 6.4 %THb (0-5.0)
[2019-06-14 21:47] LABS: Device HIGH FLOW THERAPY; Modified Allen's Test Pass; Site Drawn RIGHT RADIAL; pH ABG 7.523 (7.350-7.450)
[2019-06-14] MEDS: ACETAMINOPHEN 325 MG TABLET 650 MG PO (23:45)
[2019-06-15] VITALS (12 sets, daily range): BP systolic 121–150; BP diastolic 76–98; PULSE 84–117; RESP 27–30; TEMP 36.8–37.7; O2SAT 95–98
[2019-06-15] MEDS: DILTIAZEM HCL 60 MG TABLET PO ×4 (04:59→23:29)
[2019-06-15 05:17] LABS: Alanine Aminotransferase 151 U/L (4-50); Alkaline Phosphatase 52 U/L (38-126); Aspartate Amino Transferase 126 U/L (17-59); Bilirubin,Total 0.6 mg/dL (0.2-1.3); Blood Urea Nitrogen 9 mg/dL (9-20); Carbon Dioxide 35 mmol/L (22-30); Chloride 95 mmol/L (98-107); Estimated CRCL calculation 143 ml/min; Estimated Glomerular Filt Rate > 60; Glucose 134 mg/dL (75-110); Sodium 134 mmol/L (137-145)
[2019-06-15 06:34] LABS: Hematocrit 34.1 % (42.0-52.0); Hemoglobin 10.8 g/dL (14.0-18.0); Mean Corpuscular HGB Conc 31.7 g/dl (32-36); Mean Corpuscular Hemoglobin 28.3 pg (26-34); Mean Corpuscular Volume 89.3 fl (80-100); Mean Platelet Volume 10.5 fl (7.4-10.4); Platelet Count Result 480 k/mm3 (150-375); Red Blood Count 3.82 M/mm3 (4.6-6.20); Red Cell Distribution Width 12.2 % (11.5-14.5); White Blood Count 7.6 K/mm3 (4.5-10.0)
[2019-06-15] MEDS: INSULIN GLARGINE (*BKC) 100 UNITS/ML 34 UNITS SUB-Q ×2 (09:30→22:24)
[2019-06-15] MEDS: ASPIRIN 325 MG ENTERIC TABLET PO (09:35)
[2019-06-15] MEDS: lisinopriL 5 MG TABLET PO (09:35)
[2019-06-15] MEDS: allopurinoL 100 MG TABLET PO (09:35)
[2019-06-15 09:41] LABS: Glucose Point of Care 149 (65-105)
--- NOTE | 2019-06-15 09:56 | PM.PNCARD ---
Progress Note: A&P Assessment and Plan (1) Atrial fibrillation with RVR: Code(s): I48.91 - Unspecified atrial fibrillation Status: Acute Assessment and Plan: Pt had episode of AFIB during this admission He converted to NSR and remains in NSR. ECHO showed normal LV systolic function Cont current regimen of HR meds Cont ASA (2) COVID-19 virus detected: Code(s): U07.1 - COVID-19 Status: Acute (3) Acute respiratory failure with hypoxia: Code(s): J96.01 - Acute respiratory failure with hypoxia Status: Acute Assessment and Plan: Management per PC (4) Hypertension: Qualifiers: Hypertension type: essential hypertension Qualified Code(s): I10 - Essential (primary) hypertension Code(s): I10 - Essential (primary) hypertension Status: Acute Assessment and Plan: well controlled cont meds Subjective Date/time seen: 06/15/19 09:56 Pt remains in ICU on high flow oxygen. Stil presence of SOB and tachypnea on high flow oxygen. Case was d/w pt's nurse and chart was reviewed. Exam Narrative: Exam Narrative: not performed Objective Data Vital Signs Vital Signs: Vital Signs - 24 hr 06/14/19 10:00 06/14/19 12:00 06/14/19 13:15 Temperature 37.1 C Pulse Rate 97 98 Respiratory Rate 30 H Blood Pressure 149/90 H Pulse Oximetry 88 L 93 06/14/19 14:00 06/14/19 16:00 06/14/19 18:00 Temperature 37.7 C H Pulse Rate 91 88 106 H Respiratory Rate 27 H Blood Pressure 120/79 Pulse Oximetry 95 06/14/19 20:00 06/14/19 21:09 06/14/19 22:00 Temperature 37.5 C Pulse Rate 91 95 90 Respiratory Rate 27 H 30 H Blood Pressure 140/83 Pulse Oximetry 95 97 06/14/19 23:45 06/15/19 00:00 06/15/19 00:45 Temperature 37.7 C H 37.7 C H 37.7 C H Pulse Rate 94 Respiratory Rate 27 H Blood Pressure 123/98 H Pulse Oximetry 97 06/15/19 02:00 06/15/19 04:00 06/15/19 04:03 Temperature 37.2 C Pulse Rate 84 87 84 Respiratory Rate 30 H 30 H Blood Pressure 150/85 H Pulse Oximetry 95 96 06/15/19 06:00 Temperature Pulse Rate 91 Respiratory Rate Blood Pressure Pulse Oximetry Intake/Output Intake/Output: Intake & Output 06/12/19 06/13/19 06/14/19 06/15/19 23:59 23:59 23:59 23:59 Intake Total 2019 1340 1240 Output Total 1300 1550 1800 500 Balance 452 -856 -620 -500 Meds/Results Medications: Active Medications Generic Name Dose Route Start Last Admin Trade Name Freq PRN Reason Stop Dose Admin Acetaminophen 650 mg 06/08/19 18:34 06/14/19 23:45 Tylenol Tablet PO 650 mg Q6H PRN Administration Mild Pain (1-3) or Fever Albuterol 2 puff 06/11/19 20:00 06/14/19 21:06 Proventil Hfa INHALATION 2 puff QIDRT DAI Administration Allopurinol 100 mg 06/08/19 08:00 06/15/19 09:35 Zyloprim PO 100 mg DAILY@0800 DAI Administration Aspirin 325 mg 06/11/19 09:00 06/15/19 09:35 Aspirin Ec PO 325 mg QAM DAI Administration Dextrose 12.5 gm 06/07/19 21:18 Dextrose 50% Syringe IV PUSH PRN PRN Hypoglycemia Protocol Diltiazem HCl 60 mg 06/10/19 12:00 06/15/19 04:59 Cardizem Tab PO 60 mg Q6HR DAI Administration Glucagon 1 mg 06/07/19 21:18 Glucagon For Inj IM PRN PRN Hypoglycemia Protocol Glucose 15 gm 06/07/19 21:18 Glutose 15 PO PRN PRN Hypoglycemia Protocol Guaifenesin 600 mg 06/11/19 21:00 06/15/19 09:35 Mucinex 12 Hr Tab PO 600 mg Q12HR DAI Administration Dextrose 1,000 mls @ 100 mls/hr 06/07/19 21:18 Dextrose 5% 1,000 Ml IVPB PRN PRN Hypoglycemia Protocol Ceftriaxone Sodium/Dextrose 1 gm in 50 mls @ 100 mls/hr 06/08/19 14:00 06/14/19 14:45 Rocephin 1 Gm/D5w 50 Ml IVPB Infused Q24H DAI Infusion Azithromycin 500 mg in 250 mls @ 250 mls/hr 06/08/19 15:00 06/14/19 15:15 Zithromax IVPB Infused Q24H DAI Infusion Insulin Aspart
--- NOTE | 2019-06-15 13:20 | PM.IMPN ---
Progress Note: A&P Assessment and Plan (1) Acute respiratory failure with hypoxia: Code(s): J96.01 - Acute respiratory failure with hypoxia Status: Acute Assessment and Plan: Result of pneumonia due to COVID-19. Now on Airbo high-flow oxygen therapy with no further desaturations. Flow rate 65 with FiO2 of 85%. Continue treatment of pneumonia as noted below. Will continue to monitor closely. (2) Bilateral pneumonia: Qualifiers: Lung location: lower lobe of lung Pneumonia type: due to unspecified organism Qualified Code(s): J18.9 - Pneumonia, unspecified organism Code(s): J18.9 - Pneumonia, unspecified organism Status: Acute Assessment and Plan: Result of COVID-19. Follow-up chest x-ray, today 06/14/2019, with stable diffuse disease. Will continue IV ceftriaxone but discontinue IV azithromycin as he has completed 7 days and starting hydroxychloroquine. Encouraged ambulation. Will have PT/OT evaluations. Continue scheduled Albuterol MDI. Discussed trying prone position with patient who has been resistant. Will still try to have him try prone position as tolerates. Continue scheduled albuterol MDI. (3) COVID-19 virus detected: Code(s): U07.1 - COVID-19 Status: Acute Assessment and Plan: Testing initiated with bilateral pneumonia and hypoxia. COVID-19 testing is positive. Continue respiratory treatments as noted above. As patient is still requiring high-flow oxygen therapy, I did discuss using hydroxychloroquine for treatment. Patient does wish to proceed. Will start hydroxychloroquine today. EKG obtained and personally reviewed with sinus tachycardia and QTC of 442. Continue to monitor on telemetry. Will do follow-up EKG in approximately 48 hours unless any issues prior to that time. CRP 33.4 with slight improvement on 06/13/2019. LDH lower at 919 on 06/13/2019. Will continue to follow acute phase reactants periodically. (4) Insulin dependent type 2 diabetes mellitus: Code(s): E11.9 - Type 2 diabetes mellitus without complications; Z79.4 - residential (current) use of insulin Status: Acute Assessment and Plan: HgbA1C 11.3. Glucose reviewed on 06/15/2019 and now controlled. Will continue home dose of Lantus. Continue sliding scale insulin. Will continue to monitor and adjust treatment as needed. (5) Hypertension: Qualifiers: Hypertension type: essential hypertension Qualified Code(s): I10 - Essential (primary) hypertension Code(s): I10 - Essential (primary) hypertension Status: Acute Assessment and Plan: Blood pressure reviewed on 06/15/2019. Blood pressure stable at the present time. Will continue to monitor on diltiazem and lisinopril. (6) Atrial fibrillation with RVR: Code(s): I48.91 - Unspecified atrial fibrillation Status: Acute Assessment and Plan: Cardiology consulted and appreciate input. Review of telemetry on 06/15/2019 with continued sinus rhythm. Echocardiogram with EF 55-60% and diastolic dysfunction. Will continue diltiazem and ASA. Continue to monitor. (7) Hypokalemia: Code(s): E87.6 - Hypokalemia Status: Acute Assessment and Plan: Potassium stable at 4.0 today. Will continue to monitor. (8) Transaminasemia: Code(s): R74.0 - Nonspecific elevation of levels of transaminase and lactic acid dehydrogenase [LDH] Status: Acute Assessment and Plan: Result of infection. AST and ALT slightly higher today. Will continue to monitor periodically. (9) Hyperlipidemia: Qualifiers: Hyperlipidemia type: unspecified Qualified Code(s): E78.5 - Hyperlipidemia, unspecified Code(s): E78.5 - Hyperlipidemia, unspecified Status: Acute Assessment and Plan: Continue to hold atorvastatin. (10) Hyponatremia: Code(s): E87.1 - Hypo-osmolality and hyponatremia Status: Acute Assess
--- NOTE | 2019-06-15 13:22 | ECG_ITS ---
Measurements Intervals [place] Rate: 101 P: 31 ID: [id number] QRS: 2 QRSD: 84 T: 24 QT: 340 QTc: 442 Interpretive Statements SINUS TACHYCARDIA NONSPECIFIC T-WAVE ABNORMALITY- INFERIOR LEADS BASELINE ARTIFACT- III, V2 BORDERLINE ECG Electronically Signed On 06-16-2019 7:45:08 CDT by Marlon John D.O.
[2019-06-15 13:45] LABS: Glucose Point of Care 180 (65-105)
--- NOTE | 2019-06-15 13:52 | PCDIET ---
Nutrition Follow-Up Complete: Nutrition Diagnosis: Inadequate oral intake related to pneumonia as evidenced poor intake reported and weight loss of 14-23 pounds in the past 3 months. Nutrition Goal: Adequate intake of at least 75% of meals/supplements Goal not met. Average intake from last review is around 30% of recorded meals. Diabetic diet is appropriate. Recommend continuing Glucerna Shake BID. Last recorded weight is 98.5 kg which is decreased from last review. Intakes poor and I/O negative. Bowel Motility: Reported BM on 06/11/19. Labs Reviewed: Glu (134), Cr (0.6), Alb (3.0) Meds Noted: Proventil, Zithromax, Rocephin, Novolog, Lantus Additional Notes: No documented skin breakdown. Will continue to monitor with same goal. Nutrition Monitoring and Evaluation: Will monitor every 5 days.
[2019-06-15 15:10] LABS: Glucose Point of Care 187 (65-105)
[2019-06-15] MEDS: HYDROXYCHLOROQUINE SULFATE 200 MG TABLET 400 MG PO ×2 (18:03→23:31)
[2019-06-15 18:09] LABS: Glucose Point of Care 185 (65-105)
[2019-06-15 22:34] LABS: Glucose Point of Care 233 (65-105)
[2019-06-16] VITALS (19 sets, daily range): BP systolic 115–137; BP diastolic 76–87; PULSE 88–114; RESP 20–31; TEMP 36.6–38.4; O2SAT 93–99
[2019-06-16] MEDS: DILTIAZEM HCL 60 MG TABLET PO ×3 (04:37→17:16)
[2019-06-16 05:16] LABS: Alanine Aminotransferase 168 U/L (4-50); Alkaline Phosphatase 52 U/L (38-126); Aspartate Amino Transferase 114 U/L (17-59); Bilirubin,Total 0.5 mg/dL (0.2-1.3); Blood Urea Nitrogen 9 mg/dL (9-20); Carbon Dioxide 34 mmol/L (22-30); Chloride 95 mmol/L (98-107); Estimated CRCL calculation 144 ml/min; Estimated Glomerular Filt Rate > 60; Glucose 176 mg/dL (75-110); Potassium 4.3 mmol/L (3.4-5.0); Sodium 131 mmol/L (137-145)
[2019-06-16 05:31] LABS: CRP 25.3 mg/dL (<1.0); Creatine Kinase 95 U/L (55-170); Lactate Dehydrogenase 779 U/L (313-618)
[2019-06-16] MEDS: INSULIN GLARGINE (*BKC) 100 UNITS/ML 34 UNITS SUB-Q ×2 (08:20→21:41)
[2019-06-16] MEDS: lisinopriL 5 MG TABLET PO (08:21)
[2019-06-16] MEDS: allopurinoL 100 MG TABLET PO (08:21)
[2019-06-16] MEDS: ASPIRIN 325 MG ENTERIC TABLET PO (08:21)
[2019-06-16] MEDS: HYDROXYCHLOROQUINE SULFATE 200 MG TABLET PO ×2 (08:21→17:16)
[2019-06-16 08:22] LABS: Glucose Point of Care 145 (65-105)
--- NOTE | 2019-06-16 11:39 | PM.PNCARD ---
Progress Note: A&P Assessment and Plan (1) Atrial fibrillation with RVR: Code(s): I48.91 - Unspecified atrial fibrillation Status: Acute Assessment and Plan: Pt had episode of AFIB during this admission He converted to NSR and remains in NSR. ECHO showed normal LV systolic function Cont current regimen of HR meds Cont ASA (2) COVID-19 virus detected: Code(s): U07.1 - COVID-19 Status: Acute (3) Acute respiratory failure with hypoxia: Code(s): J96.01 - Acute respiratory failure with hypoxia Status: Acute Assessment and Plan: Management per PC (4) Hypertension: Qualifiers: Hypertension type: essential hypertension Qualified Code(s): I10 - Essential (primary) hypertension Code(s): I10 - Essential (primary) hypertension Status: Acute Assessment and Plan: well controlled cont meds Additional Plan Thank you for allowing me to participate in this patient's care, I will be following up with you. Please do not hesitate to call me for any other inquiry Subjective Date/time seen: 06/16/19 11:39 He still in isolation in intensive care no chest pain, still in sinus rhythm, mild shortness of breath with exertion, still on high-dose oxygen Objective Data Vital Signs Vital Signs: Vital Signs - 24 hr 06/15/19 12:00 06/15/19 14:00 06/15/19 16:00 Temperature 36.8 C 36.8 C Pulse Rate 102 H 109 H 106 H Respiratory Rate 29 H 29 H Blood Pressure 128/76 137/87 Pulse Oximetry 96 96 06/15/19 18:00 06/15/19 20:00 06/16/19 00:00 Temperature 37.2 C Pulse Rate 102 H 117 H 93 Respiratory Rate 27 H 20 Blood Pressure 137/87 137/87 Pulse Oximetry 98 95 06/16/19 02:00 06/16/19 04:00 06/16/19 05:21 Temperature 37.8 C H Pulse Rate 90 96 88 Respiratory Rate 30 H 26 H Blood Pressure 115/80 Pulse Oximetry 96 96 06/16/19 06:00 06/16/19 09:00 06/16/19 09:14 Temperature Pulse Rate 92 Respiratory Rate Blood Pressure Pulse Oximetry 99 96 06/16/19 11:29 Temperature Pulse Rate 94 Respiratory Rate 30 H Blood Pressure Pulse Oximetry Intake/Output Intake/Output: Intake & Output 06/13/19 06/14/19 06/15/19 06/16/19 23:59 23:59 23:59 23:59 Intake Total 1340 1240 1050 300 Output Total 1550 1800 1600 1300 Balance -210 -560 -550 -1000 Meds/Results Medications: Active Medications Generic Name Dose Route Start Last Admin Trade Name Freq PRN Reason Stop Dose Admin Acetaminophen 650 mg 06/08/19 18:34 06/14/19 23:45 Tylenol Tablet PO 650 mg Q6H PRN Administration Mild Pain (1-3) or Fever Albuterol 2 puff 06/11/19 20:00 06/16/19 11:28 Proventil Hfa INHALATION 2 puff QIDRT DAI Administration Allopurinol 100 mg 06/08/19 08:00 06/16/19 08:21 Zyloprim PO 100 mg DAILY@0800 DAI Administration Aspirin 325 mg 06/11/19 09:00 06/16/19 08:21 Aspirin Ec PO 325 mg QAM DAI Administration Dextrose 12.5 gm 06/07/19 21:18 Dextrose 50% Syringe IV PUSH PRN PRN Hypoglycemia Protocol Diltiazem HCl 60 mg 06/10/19 12:00 06/16/19 04:37 Cardizem Tab PO 60 mg Q6HR DAI Administration Glucagon 1 mg 06/07/19 21:18 Glucagon For Inj IM PRN PRN Hypoglycemia Protocol Glucose 15 gm 06/07/19 21:18 Glutose 15 PO PRN PRN Hypoglycemia Protocol Guaifenesin 600 mg 06/11/19 21:00 06/16/19 08:21 Mucinex 12 Hr Tab PO 600 mg Q12HR DAI Administration Hydroxychloroquine Sulfate 200 mg 06/16/19 08:00 06/16/19 08:21 Plaquenil Tab PO 06/19/19 17:01 200 mg BIDWM DAI Administration Dextrose 1,000 mls @ 100 mls/hr 06/07/19 21:18 Dextrose 5% 1,000 Ml IVPB PRN PRN Hypoglycemia Protocol Ceftriaxone Sodium/Dextrose 1 gm in 50 mls @ 100 mls/hr 06/08/19 14:00 06/15/19 15:30 Rocephin 1 Gm/D5w 50 Ml IVPB Infused Q24H [facility] Infusion Insulin Aspart 3 - 6 units 06/08/19 08:00 06/05
[2019-06-16 12:15] LABS: Glucose Point of Care 179 (65-105)
--- NOTE | 2019-06-16 13:26 | PM.IMPN ---
Progress Note: A&P Assessment and Plan (1) Acute respiratory failure with hypoxia: Code(s): J96.01 - Acute respiratory failure with hypoxia Status: Acute Assessment and Plan: Result of pneumonia due to COVID-19. Now on Airbo high-flow oxygen therapy with no further desaturations. Flow rate remains 65 with FiO2 of 85% but not requiring higher levels. Encouraged more movement and trying prone position if tolerates. Continue treatment of pneumonia as noted below. Will continue to monitor closely. (2) Bilateral pneumonia: Qualifiers: Lung location: lower lobe of lung Pneumonia type: due to unspecified organism Qualified Code(s): J18.9 - Pneumonia, unspecified organism Code(s): J18.9 - Pneumonia, unspecified organism Status: Acute Assessment and Plan: Result of COVID-19. Follow-up chest x-ray, today 06/14/2019, with stable diffuse disease. Will continue IV ceftriaxone but IV azithromycin discontinued after completing 7 days. Encouraged ambulation again as noted above. PT/OT evaluations ordered on 06/15/2019. Continue scheduled Albuterol MDI. Will continue to monitor closely. WBC remains normal. (3) COVID-19 virus detected: Code(s): U07.1 - COVID-19 Status: Acute Assessment and Plan: Testing initiated with bilateral pneumonia and hypoxia. COVID-19 testing is positive. Continue respiratory treatments as noted above. As patient is still requiring high-flow oxygen therapy, I did discuss using hydroxychloroquine for treatment. Patient does wish to proceed. Will continue hydroxychloroquine started on 06/15/2019. EKG obtained on 06/15/2019and personally reviewed with sinus tachycardia and QTC of 442. Continue to monitor on telemetry. Will do follow-up EKG in am. CRP still elevated but decreased to 25.3 today. LDH decreased to 779. Ferritin decreased to 772. Will continue to follow acute phase reactants periodically. (4) Insulin dependent type 2 diabetes mellitus: Code(s): E11.9 - Type 2 diabetes mellitus without complications; Z79.4 - senior living (current) use of insulin Status: Acute Assessment and Plan: HgbA1C 11.3. Glucose reviewed on 06/16/2019 and controlled. Will continue home dose of Lantus. Continue sliding scale insulin. Will continue to monitor and adjust treatment as needed. (5) Hypertension: Qualifiers: Hypertension type: essential hypertension Qualified Code(s): I10 - Essential (primary) hypertension Code(s): I10 - Essential (primary) hypertension Status: Acute Assessment and Plan: Blood pressure reviewed on 06/16/2019 and stable. Will continue to monitor on diltiazem and lisinopril. (6) Atrial fibrillation with RVR: Code(s): I48.91 - Unspecified atrial fibrillation Status: Acute Assessment and Plan: Cardiology consulted and appreciate input. Telemetry reviewed on 06/16/2019 with continued sinus rhythm. Echocardiogram with EF 55-60% and diastolic dysfunction. Will continue diltiazem and ASA. Continue to monitor. (7) Hypokalemia: Code(s): E87.6 - Hypokalemia Status: Acute Assessment and Plan: Potassium stable at 4.3 today. Will continue to monitor. (8) Transaminasemia: Code(s): R74.0 - Nonspecific elevation of levels of transaminase and lactic acid dehydrogenase [LDH] Status: Acute Assessment and Plan: Result of infection. AST and ALT remain elevated but not worsening. Will continue to monitor periodically. (9) Hyperlipidemia: Qualifiers: Hyperlipidemia type: unspecified Qualified Code(s): E78.5 - Hyperlipidemia, unspecified Code(s): E78.5 - Hyperlipidemia, unspecified Status: Acute Assessment and Plan: Continue to hold atorvastatin. (10) Hyponatremia: Code(s): E87.1 - Hypo-osmolality and hyponatremia Status: Acute Assessment and Plan: Sodium stable at 131
[2019-06-16 16:11] LABS: Glucose Point of Care 175 (65-105)
[2019-06-16 21:58] LABS: Glucose Point of Care 147 (65-105)
[2019-06-17] VITALS (20 sets, daily range): BP systolic 117–135; BP diastolic 58–86; PULSE 93–109; RESP 25–38; TEMP 37.8–38.9; O2SAT 93–96
[2019-06-17] MEDS: DILTIAZEM HCL 60 MG TABLET PO ×5 (00:40→23:23)
[2019-06-17 06:00] LABS: Blood Urea Nitrogen 8 mg/dL (9-20); Calcium 8.9 mg/dL (8.4-10.2); Carbon Dioxide 31 mmol/L (22-30); Chloride 96 mmol/L (98-107); Estimated CRCL calculation 144 ml/min; Estimated Glomerular Filt Rate > 60; Glucose 103 mg/dL (75-110); Potassium 4.5 mmol/L (3.4-5.0); Sodium 133 mmol/L (137-145)
[2019-06-17 07:34] LABS: Hematocrit 34.2 % (42.0-52.0); Hemoglobin 11.1 g/dL (14.0-18.0); Mean Corpuscular HGB Conc 32.5 g/dl (32-36); Mean Corpuscular Hemoglobin 28.8 pg (26-34); Mean Corpuscular Volume 88.6 fl (80-100); Mean Platelet Volume 10.4 fl (7.4-10.4); Platelet Count Result 477 k/mm3 (150-375); Red Blood Count 3.86 M/mm3 (4.6-6.20); Red Cell Distribution Width 12.3 % (11.5-14.5)
--- NOTE | 2019-06-17 08:00 | ECG_ITS ---
Measurements Intervals [place] Rate: 96 P: 42 IA: 179 QRS: -1 QRSD: 88 T: 30 QT: 358 QTc: 455 Interpretive Statements SINUS RHYTHM MINIMAL Q WAVES- LATERAL LEADS BORDERLINE ECG Electronically Signed On 06-17-2019 9:47:50 CDT by Marlon John D.O.
[2019-06-17 08:08] LABS: Glucose Point of Care 95 (65-105)
[2019-06-17] MEDS: HYDROXYCHLOROQUINE SULFATE 200 MG TABLET PO ×2 (08:10→17:03)
[2019-06-17] MEDS: ASPIRIN 325 MG ENTERIC TABLET PO (08:10)
[2019-06-17] MEDS: allopurinoL 100 MG TABLET PO (08:10)
[2019-06-17] MEDS: lisinopriL 5 MG TABLET PO (08:10)
--- NOTE | 2019-06-17 09:02 | PM.IMPN ---
Progress Note: A&P Assessment and Plan (1) Acute respiratory failure with hypoxia: Code(s): J96.01 - Acute respiratory failure with hypoxia Status: Acute Assessment and Plan: Result of pneumonia due to COVID-19. Now on Airbo high-flow oxygen therapy with no further desaturations. Flow rate decreased to 60 with FiO2 decreased to 75% this morning. Continue to wean oxygen as noted. Encouraged more movement and trying prone position if tolerates. Continue treatment of pneumonia as noted below. Will continue to monitor closely. (2) Bilateral pneumonia: Qualifiers: Lung location: lower lobe of lung Pneumonia type: due to unspecified organism Qualified Code(s): J18.9 - Pneumonia, unspecified organism Code(s): J18.9 - Pneumonia, unspecified organism Status: Acute Assessment and Plan: Result of COVID-19. Follow-up chest x-ray on 06/14/2019, with stable diffuse disease. Will continue IV ceftriaxone but IV azithromycin already discontinued after completing 7 days. Encouraged ambulation again as noted above. PT/OT evaluations done on 06/15/2019 and appreciate input. Continue scheduled Albuterol MDI. Will continue to monitor closely. WBC remains normal. (3) COVID-19 virus detected: Code(s): U07.1 - COVID-19 Status: Acute Assessment and Plan: Testing initiated with bilateral pneumonia and hypoxia. COVID-19 testing is positive. Continue respiratory treatments as noted above. As patient is still requiring high-flow oxygen therapy, I did discuss using hydroxychloroquine for treatment with continued high oxygen requirement with patient wishing to proceed. Will continue hydroxychloroquine started on 06/15/2019. EKG obtained on 06/15/2019 and personally reviewed with sinus tachycardia and QTC of 442. Repeat EKG today personally reviewed with sinus rhythm with QTc 412. Continue to monitor on telemetry. CRP still elevated but decreased to 25.3 on 06/16/2019 with LDH decreased to 779 and ferritin decreased to 772. Will continue to follow acute phase reactants periodically. (4) Insulin dependent type 2 diabetes mellitus: Code(s): E11.9 - Type 2 diabetes mellitus without complications; Z79.4 - prison (current) use of insulin Status: Acute Assessment and Plan: HgbA1C 11.3. Glucose reviewed on 06/17/2019 with most recent level 95. Will hold am dose of Lantus and monitor during the day. Suspect will need to decrease Lantus. Continue sliding scale insulin. Will continue to monitor and adjust treatment as needed. (5) Hypertension: Qualifiers: Hypertension type: essential hypertension Qualified Code(s): I10 - Essential (primary) hypertension Code(s): I10 - Essential (primary) hypertension Status: Acute Assessment and Plan: Blood pressure reviewed on 06/17/2019 and controlled. Will continue to monitor on diltiazem and lisinopril. (6) Atrial fibrillation with RVR: Code(s): I48.91 - Unspecified atrial fibrillation Status: Acute Assessment and Plan: Cardiology consulted and appreciate input. Telemetry reviewed on 06/17/2019 with sinus rhythm. Echocardiogram with EF 55-60% and diastolic dysfunction. Will continue diltiazem and ASA. Continue to monitor. (7) Transaminasemia: Code(s): R74.0 - Nonspecific elevation of levels of transaminase and lactic acid dehydrogenase [LDH] Status: Acute Assessment and Plan: Result of infection. AST and ALT remain elevated but not worsening with AST 114 and ALT 168 on 06/16/2019. Will continue to monitor periodically. (8) Hypokalemia: Code(s): E87.6 - Hypokalemia Status: Acute Assessment and Plan: Potassium stable at 4.5 on 06/17/2019. Will continue to monitor. (9) Hyperlipidemia: Qualifiers: Hyperlipidemia type: unspecified Qualified Code(s): E78.5 - Hyperlipidemia, unspecified Code(s): E78.5 - H
[2019-06-17 12:25] LABS: Glucose Point of Care 160 (65-105)
--- NOTE | 2019-06-17 12:47 | PM.PNCARD ---
Progress Note: A&P Assessment and Plan (1) Atrial fibrillation with RVR: Code(s): I48.91 - Unspecified atrial fibrillation Status: Acute Assessment and Plan: Pt had episode of AFIB during this admission He converted to NSR and remains in NSR. ECHO showed normal LV systolic function Cont current regimen of HR meds Cont ASA (2) COVID-19 virus detected: Code(s): U07.1 - COVID-19 Status: Acute (3) Acute respiratory failure with hypoxia: Code(s): J96.01 - Acute respiratory failure with hypoxia Status: Acute Assessment and Plan: Management per PC (4) Hypertension: Qualifiers: Hypertension type: essential hypertension Qualified Code(s): I10 - Essential (primary) hypertension Code(s): I10 - Essential (primary) hypertension Status: Acute Assessment and Plan: well controlled cont meds Additional Plan Thank you for allowing me to participate in this patient's care, I will be following up with you. Please do not hesitate to call me for any other inquiry Subjective Date/time seen: 06/17/19 12:47 High but stable oxygen requirements. On high flow, 60% Review of Systems Constitutional: Constitutional: Reports fatigue and Reports weakness Cardiovascular: Cardiovascular: Reports as per HPI Respiratory: Respiratory: Reports cough Neurologic: Reports weakness Endocrine: Endocrine: Reports fatigue Exam Narrative: Exam Narrative: In no distress. Alert and awake. Lung and heart auscultation was not performed. Objective Data Vital Signs Vital Signs: Vital Signs - 24 hr 06/16/19 14:00 06/16/19 16:00 06/16/19 16:31 Temperature 38.4 C H Pulse Rate 91 100 96 Respiratory Rate 25 H 24 H Blood Pressure 127/80 Pulse Oximetry 93 06/16/19 18:00 06/16/19 20:00 06/16/19 20:26 Temperature 37.9 C H Pulse Rate 105 H 95 101 H Respiratory Rate 31 H 29 H Blood Pressure 125/76 Pulse Oximetry 97 97 06/16/19 22:00 06/17/19 00:00 06/17/19 02:00 Temperature 37.8 C H Pulse Rate 102 H 100 100 Respiratory Rate 30 H Blood Pressure 119/77 Pulse Oximetry 95 06/17/19 04:00 06/17/19 06:00 06/17/19 08:00 Temperature Pulse Rate 99 93 97 Respiratory Rate 29 H Blood Pressure 125/80 Pulse Oximetry 96 06/17/19 08:08 06/17/19 08:57 06/17/19 10:00 Temperature 38.6 C H Pulse Rate 93 106 H 98 Respiratory Rate 25 H 30 H Blood Pressure 135/86 Pulse Oximetry 95 93 06/17/19 12:00 06/17/19 12:21 Temperature 38.2 C H Pulse Rate 106 H 95 Respiratory Rate 36 H 30 H Blood Pressure 134/71 Pulse Oximetry 93 Intake/Output Intake/Output: Intake & Output 06/14/19 06/15/19 06/16/19 06/17/19 23:59 23:59 23:59 23:59 Intake Total 1240 1050 590 740 Output Total 1800 1600 2459 900 [facility] -[phone] Meds/Results Medications: Active Medications Generic Name Dose Route Start Last Admin Trade Name Freq PRN Reason Stop Dose Admin Acetaminophen 650 mg 06/08/19 18:34 06/14/19 23:45 Tylenol Tablet PO 650 mg Q6H PRN Administration Mild Pain (1-3) or Fever Albuterol 2 puff 06/11/19 20:00 06/17/19 12:22 Proventil Hfa INHALATION 2 puff QIDRT DAI Administration Allopurinol 100 mg 06/08/19 08:00 06/17/19 08:10 Zyloprim PO 100 mg DAILY@0800 DAI Administration Aspirin 325 mg 06/11/19 09:00 06/17/19 08:10 Aspirin Ec PO 325 mg QAM DAI Administration Dextrose 12.5 gm 06/07/19 21:18 Dextrose 50% Syringe IV PUSH PRN PRN Hypoglycemia Protocol Diltiazem HCl 60 mg 06/10/19 12:00 06/17/19 12:25 Cardizem Tab PO 60 mg Q6HR DAI Administration Glucagon 1 mg 06/07/19 21:18 Glucagon For Inj IM PRN PRN Hypoglycemia Protocol Glucose 15 gm 06/07/19 21:18 Glutose 15 PO PRN PRN Hypoglycemia Protocol Guaifenesin 600 mg 06/11/19 21:00 06/17/19 08:10 Mucinex 12 Hr Tab PO 600 mg
[2019-06-17 17:03] LABS: Glucose Point of Care 149 (65-105)
[2019-06-17] MEDS: INSULIN GLARGINE (*BKC) 100 UNITS/ML 34 UNITS SUB-Q (20:44)
[2019-06-17] MEDS: ACETAMINOPHEN 325 MG TABLET 650 MG PO (20:52)
[2019-06-17 20:59] LABS: Glucose Point of Care 159 (65-105)
--- NOTE | 2019-06-17 22:28 | PCRCNOTE ---
Window of time for administration has passed. See next scheduled administration.
[2019-06-18] VITALS (17 sets, daily range): BP systolic 120–139; BP diastolic 78–89; PULSE 89–119; RESP 26–32; TEMP 36.4–38.1; O2SAT 85–99
[2019-06-18] MEDS: DILTIAZEM HCL 60 MG TABLET PO ×3 (05:12→18:01)
[2019-06-18 06:17] LABS: Alanine Aminotransferase 297 U/L (4-50); Albumin Level 3.4 g/dL (3.5-5.1); Alkaline Phosphatase 88 U/L (38-126); Aspartate Amino Transferase 194 U/L (17-59); Bilirubin,Total 1.1 mg/dL (0.2-1.3); Blood Urea Nitrogen 11 mg/dL (9-20); Calcium 9.3 mg/dL (8.4-10.2); Carbon Dioxide 30 mmol/L (22-30); Chloride 95 mmol/L (98-107); Estimated CRCL calculation 127 ml/min; Estimated Glomerular Filt Rate > 60; Glucose 200 mg/dL (75-110); Lactate Dehydrogenase 934 U/L (313-618); Potassium 4.9 mmol/L (3.4-5.0); Sodium 131 mmol/L (137-145)
[2019-06-18 06:40] LABS: CRP 35.5 mg/dL (<1.0)
[2019-06-18] MEDS: HYDROXYCHLOROQUINE SULFATE 200 MG TABLET PO ×2 (08:40→18:02)
[2019-06-18] MEDS: INSULIN ASPART (*BKC) 100 UNITS/ML SUB-Q ×2 (08:40→19:28)
[2019-06-18] MEDS: lisinopriL 5 MG TABLET PO (08:41)
[2019-06-18] MEDS: allopurinoL 100 MG TABLET PO (08:41)
[2019-06-18] MEDS: ASPIRIN 325 MG ENTERIC TABLET PO (08:41)
[2019-06-18 09:59] LABS: Glucose Point of Care 218 (65-105)
[2019-06-18] MEDS: INSULIN GLARGINE (*BKC) 100 UNITS/ML 34 UNITS SUB-Q ×2 (11:44→20:41)
--- NOTE | 2019-06-18 11:47 | PM.IMPN ---
Progress Note: A&P Assessment and Plan (1) Acute respiratory failure with hypoxia: Code(s): J96.01 - Acute respiratory failure with hypoxia Status: Acute Assessment and Plan: Result of pneumonia due to COVID-19. Now on Airvo high-flow oxygen therapy with no further desaturations. Remains on flow rate of 60 with FiO2 75% which is slight decrease from the weekend. Add IV steroids today. Advised patient he needs to move more. Nursing is helping patient with movement. Will continue to wean oxygen as tolerated. Continue other treatment as noted below. Will continue to monitor closely. Guest Services Officer is aware patient in case of any respiratory decompensation. (2) Bilateral pneumonia: Qualifiers: Lung location: lower lobe of lung Pneumonia type: due to unspecified organism Qualified Code(s): J18.9 - Pneumonia, unspecified organism Code(s): J18.9 - Pneumonia, unspecified organism Status: Acute Assessment and Plan: Result of COVID-19. Follow-up chest x-ray today, 06/18/2019, with stable diffuse lung disease. Was previously on IV azithromycin and ceftriaxone but now both have been discontinued after completing course of treatment and not felt to have bacterial superinfection. Continue albuterol MDI. Ambulation encouraged as noted above. Completing course of hydroxychloroquine as noted below. Will continue monitor closely. (3) COVID-19 virus detected: Code(s): U07.1 - COVID-19 Status: Acute Assessment and Plan: Testing initiated with bilateral pneumonia and hypoxia. COVID-19 testing is positive. Continue respiratory treatments as noted above. As patient is still requiring high-flow oxygen therapy, I did discuss using hydroxychloroquine for treatment with continued high oxygen requirement with patient wishing to proceed. Will continue hydroxychloroquine for 5 day course started on 06/15/2019. EKG obtained on 06/15/2019 and personally reviewed with sinus tachycardia and QTC of 442. Repeat EKG on 06/17/2019 personally reviewed with sinus rhythm with QTc 412. Continue to monitor on telemetry. CRP still elevated and higher today at 35.5 today with LDH higher at 934 adn ferritin 878. Will continue to follow acute phase reactants periodically. (4) Insulin dependent type 2 diabetes mellitus: Code(s): E11.9 - Type 2 diabetes mellitus without complications; Z79.4 - termination clerk (current) use of insulin Status: Acute Assessment and Plan: HgbA1C 11.3. Glucose reviewed on 06/18/2019 with levels in 200s today but did hold am dose of Lantus yesterday. Continue curernt dose of Lantus for now but will need to monitor with IV steroids started. Continue sliding scale insulin. Will continue to monitor and adjust treatment as needed. (5) Hypertension: Qualifiers: Hypertension type: essential hypertension Qualified Code(s): I10 - Essential (primary) hypertension Code(s): I10 - Essential (primary) hypertension Status: Acute Assessment and Plan: Blood pressure reviewed on 06/18/2019 and remains controlled. Will continue to monitor on diltiazem and lisinopril. (6) Atrial fibrillation with RVR: Code(s): I48.91 - Unspecified atrial fibrillation Status: Acute Assessment and Plan: Cardiology consulted and appreciate input. Telemetry reviewed on 06/18/2019 with continued sinus rhythm. Echocardiogram with EF 55-60% and diastolic dysfunction. Will continue diltiazem and ASA. Continue to monitor. (7) Transaminasemia: Code(s): R74.0 - Nonspecific elevation of levels of transaminase and lactic acid dehydrogenase [LDH] Status: Acute Assessment and Plan: Result of infection. LFTs have continued remain elevated over the past several days and increased with AST 194 and ALT 297 today. Will continue to monitor. (8) Hypokalemia: Code(s): E87.6 - Hypokalemia Status: Acute Assessment an
[2019-06-18] MEDS: methylPREDNISolone SOD SUCC 125 MG VIAL IV PUSH (14:13)
[2019-06-18 14:36] LABS: Glucose Point of Care 201 (65-105)
--- NOTE | 2019-06-18 15:00 | PM.PNCARD ---
Progress Note: A&P Assessment and Plan (1) Atrial fibrillation with RVR: Code(s): I48.91 - Unspecified atrial fibrillation Status: Acute Assessment and Plan: Pt had episode of AFIB during this admission He converted to NSR and remains in NSR. ECHO showed normal LV systolic function Cont current regimen of HR meds, he is slightly tachycardic now, we will consider increasing Cardizem if he continued to have persistent tachycardia Cont ASA (2) COVID-19 virus detected: Code(s): U07.1 - COVID-19 Status: Acute (3) Acute respiratory failure with hypoxia: Code(s): J96.01 - Acute respiratory failure with hypoxia Status: Acute Assessment and Plan: Management per PC (4) Hypertension: Qualifiers: Hypertension type: essential hypertension Qualified Code(s): I10 - Essential (primary) hypertension Code(s): I10 - Essential (primary) hypertension Status: Acute Assessment and Plan: well controlled cont meds Additional Plan Thank you for allowing me to participate in this patient's care, I will be following up with you. Please do not hesitate to call me for any other inquiry Subjective Date/time seen: 06/18/19 15:00 Still with mild shortness of breath, no chest pain, slight tachycardia noted Exam Narrative: Exam Narrative: In no distress. Alert and awake. Lung and heart auscultation was not performed. Objective Data Vital Signs Vital Signs: Vital Signs - 24 hr 06/17/19 15:43 06/17/19 16:00 06/17/19 16:40 Temperature 38.9 C H Pulse Rate 101 H 103 H 95 Respiratory Rate 38 H 29 H Blood Pressure 120/74 Pulse Oximetry 96 06/17/19 18:00 06/17/19 20:00 06/17/19 20:52 Temperature 38.4 C H 38.4 C H Pulse Rate 102 H 109 H Respiratory Rate 33 H Blood Pressure 117/58 L Pulse Oximetry 93 06/17/19 21:58 06/17/19 22:00 06/17/19 22:26 Temperature 38.3 C H Pulse Rate 97 109 H Respiratory Rate 32 H Blood Pressure Pulse Oximetry 93 06/18/19 00:00 06/18/19 02:00 06/18/19 04:00 Temperature 37.9 C H 38.1 C H Pulse Rate 93 104 H 103 H Respiratory Rate 32 H 30 H Blood Pressure 126/83 137/85 Pulse Oximetry 94 95 06/18/19 06:00 06/18/19 08:00 06/18/19 09:00 Temperature 37.9 C H Pulse Rate 107 H 111 H 103 H Respiratory Rate 26 H 31 H Blood Pressure 139/89 Pulse Oximetry 92 06/18/19 09:07 06/18/19 10:00 06/18/19 12:00 Temperature 37.8 C H Pulse Rate 107 H 109 H Respiratory Rate 31 H Blood Pressure 120/84 Pulse Oximetry 94 94 Intake/Output Intake/Output: Intake & Output 06/15/19 06/16/19 06/17/19 06/18/19 23:59 23:59 23:59 23:59 Intake Total 8253 934 3710 150 Output Total 1600 1202 1900 1250 Balance -550 -2785 -620 -1100 Meds/Results Medications: Active Medications Generic Name Dose Route Start Last Admin Trade Name Freq PRN Reason Stop Dose Admin Acetaminophen 650 mg 06/08/19 18:34 06/17/19 20:52 Tylenol Tablet PO 650 mg Q6H PRN Administration Mild Pain (1-3) or Fever Albuterol 2 puff 06/11/19 20:00 06/18/19 12:10 Proventil Hfa INHALATION 2 puff QIDRT DAI Administration Allopurinol 100 mg 06/08/19 08:00 06/18/19 08:41 Zyloprim PO 100 mg DAILY@0800 DAI Administration Aspirin 325 mg 06/11/19 09:00 06/18/19 08:41 Aspirin Ec PO 325 mg QAM DAI Administration Dextrose 12.5 gm 06/07/19 21:18 Dextrose 50% Syringe IV PUSH PRN PRN Hypoglycemia Protocol Diltiazem HCl 60 mg 06/10/19 12:00 06/18/19 14:13 Cardizem Tab PO 60 mg Q6HR DAI Administration Glucagon 1 mg 06/07/19 21:18 Glucagon For Inj IM PRN PRN Hypoglycemia Protocol Glucose 15 gm 06/07/19 21:18 Glutose 15 PO PRN PRN Hypoglycemia Protocol Guaifenesin 600 mg 06/11/19 21:00 06/18/19 08:41 Mucinex 12 Hr Tab PO 600 mg Q12HR DAI Administration Hydroxychloroquine Sulfate 200 mg
[2019-06-18 18:57] LABS: Glucose Point of Care 251 (65-105)
[2019-06-18] MEDS: methylPREDNISolone SOD SUCC 40 MG VIAL IV PUSH (20:40)
[2019-06-18 21:07] LABS: Glucose Point of Care 332 (65-105)
[2019-06-19] VITALS (19 sets, daily range): BP systolic 124–137; BP diastolic 64–83; PULSE 84–99; RESP 18–32; TEMP 36.4–37.1; O2SAT 92–97
[2019-06-19] MEDS: DILTIAZEM HCL 60 MG TABLET PO ×4 (00:02→16:50)
[2019-06-19 06:49] LABS: Hematocrit 33.5 % (42.0-52.0); Hemoglobin 11.1 g/dL (14.0-18.0); Mean Corpuscular HGB Conc 33.1 g/dl (32-36); Mean Corpuscular Hemoglobin 28.7 pg (26-34); Mean Corpuscular Volume 86.6 fl (80-100); Mean Platelet Volume 10.6 fl (7.4-10.4); Platelet Count Result 479 k/mm3 (150-375); Red Blood Count 3.87 M/mm3 (4.6-6.20); Red Cell Distribution Width 12.3 % (11.5-14.5); White Blood Count 11.4 K/mm3 (4.5-10.0)
[2019-06-19 06:53] LABS: Alanine Aminotransferase 246 U/L (4-50); Albumin Level 3.2 g/dL (3.5-5.1); Alkaline Phosphatase 77 U/L (38-126); Aspartate Amino Transferase 125 U/L (17-59); Bilirubin,Total 0.5 mg/dL (0.2-1.3); Blood Urea Nitrogen 20 mg/dL (9-20); Calcium 9.1 mg/dL (8.4-10.2); Carbon Dioxide 29 mmol/L (22-30); Chloride 94 mmol/L (98-107); Estimated CRCL calculation 150 ml/min; Estimated Glomerular Filt Rate > 60; Glucose 350 mg/dL (75-110); Potassium 4.8 mmol/L (3.4-5.0); Sodium 132 mmol/L (137-145)
[2019-06-19] MEDS: ASPIRIN 325 MG ENTERIC TABLET PO (09:46)
[2019-06-19] MEDS: HYDROXYCHLOROQUINE SULFATE 200 MG TABLET PO ×2 (09:46→16:50)
[2019-06-19] MEDS: allopurinoL 100 MG TABLET PO (09:46)
[2019-06-19] MEDS: lisinopriL 5 MG TABLET PO (09:46)
[2019-06-19] MEDS: INSULIN GLARGINE (*BKC) 100 UNITS/ML 34 UNITS SUB-Q ×2 (09:47→19:46)
[2019-06-19] MEDS: methylPREDNISolone SOD SUCC 40 MG VIAL IV PUSH (09:47)
[2019-06-19] MEDS: INSULIN ASPART (*BKC) 100 UNITS/ML SUB-Q ×2 (09:47→13:26)
--- NOTE | 2019-06-19 09:54 | PM.IMPN ---
Progress Note: A&P Assessment and Plan (1) Acute respiratory failure with hypoxia: Code(s): J96.01 - Acute respiratory failure with hypoxia Status: Acute Assessment and Plan: Result of pneumonia due to COVID-19. Now on Airvo high-flow oxygen therapy with no further desaturations. Remains on flow rate of 60 with FiO2 75% via Aerof[employer] D/c steroids as no wheezing and COVID-19 guidelines from [employer] recommend against steroids (2) Bilateral pneumonia: Qualifiers: Lung location: lower lobe of lung Pneumonia type: due to unspecified organism Qualified Code(s): J18.9 - Pneumonia, unspecified organism Code(s): J18.9 - Pneumonia, unspecified organism Status: Acute Assessment and Plan: Due to COVID-19. Completed course of azithromycin and ceftriaxone 06/07-06/16 Ceftriaxone was reordered by cross-coverage 06/17. (3) COVID-19 virus detected: Code(s): U07.1 - COVID-19 Status: Acute Assessment and Plan: Hydroxychloroquine for 7 day course started on 06/15/2019. EKG obtained on 06/15/2019 with sinus tachycardia and QTC of 442. Repeat EKG on 06/17/2019 with sinus rhythm with QTc 412. Continue to monitor on telemetry. F/u clinical status, CRP, D-Dimer (4) Insulin dependent type 2 diabetes mellitus: Code(s): E11.9 - Type 2 diabetes mellitus without complications; Z79.4 - extermination inspector (current) use of insulin Status: Acute Assessment and Plan: HgbA1C 11.3. 4/14 BS 343-->406, stopped IV steroids Continue Lantus and TID SSI (5) Hypertension: Qualifiers: Hypertension type: essential hypertension Qualified Code(s): I10 - Essential (primary) hypertension Code(s): I10 - Essential (primary) hypertension Status: Acute Assessment and Plan: Blood pressure reviewed on 06/19/2019 and remains controlled. Continue to monitor on diltiazem and lisinopril. (6) Atrial fibrillation with RVR: Code(s): I48.91 - Unspecified atrial fibrillation Status: Acute Assessment and Plan: Cardiology following. Echocardiogram with EF 55-60% and diastolic dysfunction. Continue diltiazem and ASA. Telemetry reviewed on 06/19/2019 with continued sinus rhythm. (7) Transaminasemia: Code(s): R74.0 - Nonspecific elevation of levels of transaminase and lactic acid dehydrogenase [LDH] Status: Acute Assessment and Plan: Due to sepsis. 06/18 AST 125, ALT 246 F/u lab (8) Hypokalemia: Code(s): E87.6 - Hypokalemia Status: Acute Assessment and Plan: Resolved (9) DVT prophylaxis: Code(s): Z29.9 - Encounter for prophylactic measures, unspecified Status: Acute Assessment and Plan: SCDs. (10) Hyponatremia: Code(s): E87.1 - Hypo-osmolality and hyponatremia Status: Acute Assessment and Plan: 06/18 132 Monitor (11) Sepsis: Qualifiers: Sepsis type: sepsis due to unspecified organism Sepsis acute organ dysfunction status: with acute organ dysfunction Severe sepsis acute organ dysfunction type: acute respiratory failure Acute respiratory failure type: with hypoxia Severe sepsis shock status: without septic shock Qualified Code(s): A41.9 - Sepsis, unspecified organism; R65.20 - Severe sepsis without septic shock; J96.01 - Acute respiratory failure with hypoxia Code(s): A41.9 - Sepsis, unspecified organism Status: Acute Assessment and Plan: Present at admission with tachypnea, tachycardia, hypoxia, pneumonia. Subjective Date/time seen: 06/19/19 09:54 Interval history: Admitted 06/06 with respiratory failure and pneumonia. 06/18 Tolerating diet. No shortness of breath at rest. On high-flow oxygen. Denied pain. Review of Systems Review of Systems: All systems reviewed & are unremarkable except as noted in HPI and below Exam Narrative: Exam Narrative: HEENT: EOMI, PERRL, sclerae nonicteric, pharyngea
[2019-06-19 11:47] LABS: Glucose Point of Care 343 (65-105)
[2019-06-19 13:37] LABS: Glucose Point of Care 402 (65-105)
--- NOTE | 2019-06-19 13:37 | PCDIET ---
Nutrition Follow-Up Complete: Inadequate Oral Intake as related to pneumonia as evidenced poor po intake reported and weight loss of 14-23 lbs in the past 3 months. Adequate Intake of at least 75% of meals/supplements Goal:Goal not met. Continue with current goal. Pt current nutrition is DBCC, regular level 7, with glucerna BID. Nutrition recommendation: Agree Last recorded weight is 96.7 kg (Down from 100kg on assessment) Bowel Motility: Last BM noted was on 06/10 Labs Reviewed:Ferritin 878, CReactive 35.5, Glucose 350 Meds Noted: Hydroxychloroquine, Lantus, Solmedrol Additional Notes: Pt eating poorly overall. Average intake over five meals is only 17%. Pt drinking 1/2 of nutritional supplements. Glucerna includes low glycemic carbohydrates to help minimize blood sugar spikes and provides 180 kcal, 10g protein, 16g CHO, and 26 vitamins and minerals per 8oz serving. Pt on high flow oxygen therapy. Hydroxychloroquine added. Due to inflammatory nature of COVID19 and lab markers of ferritin and CReactive showing increased inflammation, recommend adding IV vitamin C. We will continue to monitor daily in ICU.
[2019-06-19] MEDS: INSULIN ASPART (*BKC) 100 UNITS/ML 8 UNITS SUB-Q (17:13)
[2019-06-19 20:00] LABS: Glucose Point of Care 388 (65-105)
[2019-06-20] VITALS (14 sets, daily range): BP systolic 114–125; BP diastolic 66–83; PULSE 68–99; RESP 20–27; TEMP 36.4–37.1; O2SAT 88–100
[2019-06-20] MEDS: DILTIAZEM HCL 60 MG TABLET PO ×4 (00:06→18:34)
[2019-06-20 03:02] LABS: Glucose Point of Care 401 (65-105)
[2019-06-20 05:43] LABS: Basophils Percent Auto 0.1 % (0.2-1.2); Hematocrit 32.4 % (42.0-52.0); Hemoglobin 10.7 g/dL (14.0-18.0); Immature Granulocyte Absolute 0.13 K/mm3 (0.00-0.031); Immature Granulocyte Percent A 0.7 % (0-0.5); Lymphocytes Absolute Auto 0.99 K/mm3 (0.9-3.2); Lymphocytes Percent Auto 5.3 % (18.3-44.2); Mean Corpuscular Hemoglobin 28.7 pg (26-34); Mean Corpuscular Volume 86.9 fl (80-100); Mean Platelet Volume 10.8 fl (7.4-10.4); Monocytes Absolute Auto 0.6 K/mm3 (0.1-0.6); Monocytes Percent Auto 3.3 % (2.6-8.5); Neutrophils Absolute Auto 16.9 K/mm3 (1.3-6.7); Neutrophils Percent Auto 90.6 % (45.5-73.1); Platelet Count Result 543 k/mm3 (150-375); Red Blood Count 3.73 M/mm3 (4.6-6.20); Red Cell Distribution Width 12.2 % (11.5-14.5); White Blood Count 18.6 K/mm3 (4.5-10.0)
[2019-06-20 06:03] LABS: D Dimer 6.39 ug/mL (<0.48)
[2019-06-20 08:03] LABS: Alanine Aminotransferase 405 U/L (4-50); Albumin Level 3.1 g/dL (3.5-5.1); Alkaline Phosphatase 74 U/L (38-126); Aspartate Amino Transferase 286 U/L (17-59); Bilirubin,Total 0.4 mg/dL (0.2-1.3); Blood Urea Nitrogen 30 mg/dL (9-20); Calcium 9.1 mg/dL (8.4-10.2); Carbon Dioxide 29 mmol/L (22-30); Chloride 95 mmol/L (98-107); Estimated CRCL calculation 127 ml/min; Estimated Glomerular Filt Rate > 60; Glucose 383 mg/dL (75-110); Sodium 131 mmol/L (137-145)
[2019-06-20 08:11] LABS: CRP 16.7 mg/dL (<1.0)
[2019-06-20] MEDS: lisinopriL 5 MG TABLET PO (08:49)
[2019-06-20] MEDS: allopurinoL 100 MG TABLET PO (08:49)
[2019-06-20] MEDS: ASPIRIN 325 MG ENTERIC TABLET PO (08:49)
[2019-06-20] MEDS: INSULIN ASPART (*BKC) 100 UNITS/ML SUB-Q ×3 (08:54→18:34)
[2019-06-20] MEDS: INSULIN GLARGINE (*BKC) 100 UNITS/ML 34 UNITS SUB-Q (08:58)
--- NOTE | 2019-06-20 10:46 | PM.PNCARD ---
Progress Note: A&P Assessment and Plan (1) Atrial fibrillation with RVR: Code(s): I48.91 - Unspecified atrial fibrillation Status: Acute Assessment and Plan: Pt had episode of AFIB during this admission He converted to NSR and remains in NSR. ECHO showed normal LV systolic function Cont current regimen of HR meds, he is slightly tachycardic now, we will consider increasing Cardizem if he continued to have persistent tachycardia Cont ASA (2) COVID-19 virus detected: Code(s): U07.1 - COVID-19 Status: Acute (3) Acute respiratory failure with hypoxia: Code(s): J96.01 - Acute respiratory failure with hypoxia Status: Acute Assessment and Plan: Management per PC (4) Hypertension: Qualifiers: Hypertension type: essential hypertension Qualified Code(s): I10 - Essential (primary) hypertension Code(s): I10 - Essential (primary) hypertension Status: Acute Assessment and Plan: well controlled cont meds Additional Plan Thank you for allowing me to participate in this patient's care, I will be following up with you. Please do not hesitate to call me for any other inquiry Subjective Date/time seen: 06/20/19 10:46 : Then consult:, with some cough and mild shortness of breath, on oxygen now Exam Narrative: Exam Narrative: In no distress. Alert and awake. Lung and heart auscultation was not performed, due to the thought that level COVID-19 is on restricted isolation Objective Data Vital Signs Vital Signs: Vital Signs - 24 hr 06/19/19 11:27 06/19/19 11:28 06/19/19 12:00 Temperature 36.6 C Pulse Rate 96 95 90 Respiratory Rate 20 20 28 H Blood Pressure 124/71 Pulse Oximetry 93 97 06/19/19 14:00 06/19/19 16:00 06/19/19 16:16 Temperature 36.4 C L Pulse Rate 99 90 86 Respiratory Rate 28 H 20 Blood Pressure 124/71 Pulse Oximetry 97 06/19/19 18:00 06/19/19 20:00 06/19/19 20:25 Temperature 37.1 C Pulse Rate 97 84 87 Respiratory Rate 24 H 26 H Blood Pressure 127/64 Pulse Oximetry 96 06/19/19 20:38 06/19/19 22:00 06/20/19 00:00 Temperature 36.6 C Pulse Rate 89 90 79 Respiratory Rate 18 21 H Blood Pressure 125/75 Pulse Oximetry 97 94 06/20/19 02:00 06/20/19 04:00 06/20/19 06:00 Temperature 37.1 C Pulse Rate 74 68 74 Respiratory Rate 20 Blood Pressure 120/69 Pulse Oximetry 97 06/20/19 08:00 Temperature 36.4 C L Pulse Rate 71 Respiratory Rate 26 H Blood Pressure 114/80 Pulse Oximetry 88 L Intake/Output Intake/Output: Intake & Output 06/17/19 06/18/19 06/19/19 06/20/19 23:59 23:59 23:59 23:59 Intake Total 0802 760 1039 400 Output Total 1900 1750 2667 650 Balance -620 -830 -325 -250 Meds/Results Medications: Active Medications Generic Name Dose Route Start Last Admin Trade Name Freq PRN Reason Stop Dose Admin Acetaminophen 650 mg 06/08/19 18:34 06/17/19 20:52 Tylenol Tablet PO 650 mg Q6H PRN Administration Mild Pain (1-3) or Fever Albuterol 2 puff 06/11/19 20:00 06/19/19 20:25 Proventil Hfa INHALATION 2 puff QIDRT DAI Administration Allopurinol 100 mg 06/08/19 08:00 06/20/19 08:49 Zyloprim PO 100 mg DAILY@0800 DAI Administration Aspirin 325 mg 06/11/19 09:00 06/20/19 08:49 Aspirin Ec PO 325 mg QAM DAI Administration Dextrose 12.5 gm 06/07/19 21:18 Dextrose 50% Syringe IV PUSH PRN PRN Hypoglycemia Protocol Diltiazem HCl 60 mg 06/10/19 12:00 06/20/19 05:19 Cardizem Tab PO 60 mg Q6HR DAI Administration Glucagon 1 mg 06/07/19 21:18 Glucagon For Inj IM PRN PRN Hypoglycemia Protocol Glucose 15 gm 06/07/19 21:18 Glutose 15 PO PRN PRN Hypoglycemia Protocol Guaifenesin 600 mg 06/11/19 21:00 06/20/19 08:48 Mucinex 12 Hr Tab PO 600 mg Q12HR DAI Administration Dextrose 1,000 mls @ 100 mls/hr 06/07/19 21:18 Dextrose 5% 1,000 Ml
--- NOTE | 2019-06-20 12:33 | WPDCNINT ---
Assessment and Plan Assessment and plan (1) COVID-19 virus detected: Code(s): U07.1 - COVID-19 Status: Acute Assessment and Plan: patient tested positive for COVID-19 - chest x-ray shows will bilateral airspace opacities - on ceftriaxone, status post course of hydroxychloroquine - continue patient on high-flow oxygen therapy and non-rebreather mask for now - discussed with Dr. Perkins and the patient regarding Tocilizumab, will obtain QuantiFERON TB test, hepatitis panel, IL- 6 level - follow ferritin, LDH, D.dimer, CRP (2) Bilateral pneumonia: Qualifiers: Lung location: lower lobe of lung Pneumonia type: due to unspecified organism Qualified Code(s): J18.9 - Pneumonia, unspecified organism Code(s): J18.9 - Pneumonia, unspecified organism Status: Acute Assessment and Plan: patient with bilateral pneumonia, likely related to coronavirus - treatment as above (3) Atrial fibrillation with RVR: Code(s): I48.91 - Unspecified atrial fibrillation Status: Acute Assessment and Plan: patient on Cardizem p.o., currently in sinus rhythm rate controlled - cardiology following the patient (4) Insulin dependent type 2 diabetes mellitus: Code(s): E11.9 - Type 2 diabetes mellitus without complications; Z79.4 - group home (current) use of insulin Status: Acute Assessment and Plan: patient hyperglycemic, likely related to steroids which were discontinued yesterday - will increase Lantus (5) Hypertension: Qualifiers: Hypertension type: essential hypertension Qualified Code(s): I10 - Essential (primary) hypertension Code(s): I10 - Essential (primary) hypertension Status: Acute Assessment and Plan: patient with distension hypertension currently on Cardizem, blood pressures are within normal limits (6) Transaminasemia: Code(s): R74.0 - Nonspecific elevation of levels of transaminase and lactic acid dehydrogenase [LDH] Status: Acute Assessment and Plan: elevated LFTs likely related to hydroxychloroquine, will continue to monitor the trend (7) DVT prophylaxis: Code(s): Z29.9 - Encounter for prophylactic measures, unspecified Status: Acute Assessment and Plan: will add SQ Lovenox Additional Plan discussed with patient updated with his condition and plan of care. I did discuss with him regarding Tocilizumab, he is agreeable to receive it once his hepatitis panel and quantiferon gold TB test is done Code status: Full code Critical care time spent: 48 minutes Due to a high probability of clinically significant, life threatening deterioration, the patient required my highest level of preparedness to intervene emergently and I personally spent this critical care time directly and personally managing the patient. This critical care time included obtaining a history; examining the patient; pulse oximetry; ordering and review of studies; arranging urgent treatment with development of a management plan; evaluation of patient's response to treatment; frequent reassessment; and discussions with other providers. It was exclusive of separately billable procedures and treating other patients and teaching time. Please see Assessment and Plan section and the rest of the note for further information on patient assessment and treatment Telecommunication Operator Consult Note Consult date: 06/20/19 Time Seen: 10:54 Reason for consult: POSITIVE CORONAVIRUS, acute respiratory, atrial fibrillation RVR HPI: Job Rosario Bishop Qiu is a 53 year old male with significant past medical history of insulin-dependent diabetes presented the ED on 06/07/2019 with complains of generalized weakness for 4-5 days Prior to admission, for along with productive cough and shortness of breath for the 3-4 days prior to admission. new also reports generalized malaise and progressive weakness along with bilateral pleural adequate
[2019-06-20 14:12] LABS: Hepatitis B Surface Antigen Negative (Negative)
[2019-06-20 14:17] LABS: HAV RESULT Negative (Negative)
[2019-06-20 14:29] LABS: Hepatitis C Virus Antibody Negative (Negative)
--- NOTE | 2019-06-20 15:18 | PM.IMPN ---
Progress Note: A&P Assessment and Plan (1) Acute respiratory failure with hypoxia: Code(s): J96.01 - Acute respiratory failure with hypoxia Status: Acute Assessment and Plan: Result of pneumonia due to COVID-19. Now on Airvo high-flow oxygen therapy with no further desaturations. Remains on flow rate of 60 with FiO2 75% via Aerof[employer] (2) Bilateral pneumonia: Qualifiers: Lung location: lower lobe of lung Pneumonia type: due to unspecified organism Qualified Code(s): J18.9 - Pneumonia, unspecified organism Code(s): J18.9 - Pneumonia, unspecified organism Status: Acute Assessment and Plan: Due to COVID-19. Completed course of azithromycin and ceftriaxone 06/07-06/16 Ceftriaxone was reordered by cross-coverage 06/17. (3) COVID-19 virus detected: Code(s): U07.1 - COVID-19 Status: Acute Assessment and Plan: Hydroxychloroquine for 7 day course started on 06/15/2019. EKG obtained on 06/15/2019 with sinus tachycardia and QTC of 442. Repeat EKG on 06/17/2019 with sinus rhythm with QTc 412. Continue to monitor on telemetry. If Quantiferon TB and hepatitis panel are negative, pt is amenable to trial of tocilizumab 400mg IV x1. (D/w Dr. Patel) F/u clinical status, CRP, D-Dimer, LDH, Ferritin (4) Insulin dependent type 2 diabetes mellitus: Code(s): E11.9 - Type 2 diabetes mellitus without complications; Z79.4 - residential (current) use of insulin Status: Acute Assessment and Plan: HgbA1C 11.3. 4/14 BS 343-->406, stopped IV steroids Continue Lantus and TID SSI (5) Hypertension: Qualifiers: Hypertension type: essential hypertension Qualified Code(s): I10 - Essential (primary) hypertension Code(s): I10 - Essential (primary) hypertension Status: Acute Assessment and Plan: Blood pressure reviewed on 06/19/2019 and remains controlled. Continue to monitor on diltiazem and lisinopril. (6) Atrial fibrillation with RVR: Code(s): I48.91 - Unspecified atrial fibrillation Status: Acute Assessment and Plan: Cardiology following. Echocardiogram with EF 55-60% and diastolic dysfunction. Continue diltiazem and ASA. Telemetry reviewed on 06/20/2019 with continued sinus rhythm. (7) Transaminasemia: Code(s): R74.0 - Nonspecific elevation of levels of transaminase and lactic acid dehydrogenase [LDH] Status: Acute Assessment and Plan: Due to sepsis. 06/18 AST 125, ALT 246 F/u lab (8) Hypokalemia: Code(s): E87.6 - Hypokalemia Status: Acute Assessment and Plan: Resolved (9) DVT prophylaxis: Code(s): Z29.9 - Encounter for prophylactic measures, unspecified Status: Acute Assessment and Plan: SCDs. (10) Hyponatremia: Code(s): E87.1 - Hypo-osmolality and hyponatremia Status: Acute Assessment and Plan: 06/18 132 Monitor (11) Sepsis: Qualifiers: Sepsis type: sepsis due to unspecified organism Sepsis acute organ dysfunction status: with acute organ dysfunction Severe sepsis acute organ dysfunction type: acute respiratory failure Acute respiratory failure type: with hypoxia Severe sepsis shock status: without septic shock Qualified Code(s): A41.9 - Sepsis, unspecified organism; R65.20 - Severe sepsis without septic shock; J96.01 - Acute respiratory failure with hypoxia Code(s): A41.9 - Sepsis, unspecified organism Status: Acute Assessment and Plan: Present at admission with tachypnea, tachycardia, hypoxia, pneumonia. Subjective Date/time seen: 06/20/19 15:18 Interval history: Admitted 06/06 with respiratory failure and pneumonia. 06/19 Tolerating diet. No shortness of breath at rest. On high-flow oxygen. Denied pain. Review of Systems Review of Systems: All systems reviewed & are unremarkable except as noted in HPI and below Exam Narrative: Exam Narrative:
[2019-06-20 19:01] LABS: Glucose Point of Care 370 (65-105)
[2019-06-20 19:02] LABS: Glucose Point of Care 368 (65-105)
[2019-06-20 19:02] LABS: Glucose Point of Care 362 (65-105)
[2019-06-20] MEDS: INSULIN GLARGINE (*BKC) 100 UNITS/ML 42 UNITS SUB-Q (20:12)
[2019-06-20 20:18] LABS: Glucose Point of Care 367 (65-105)
[2019-06-21] VITALS (13 sets, daily range): BP systolic 107–165; BP diastolic 71–82; PULSE 68–94; RESP 20–27; TEMP 36.4–37.1; O2SAT 92–100
[2019-06-21] MEDS: DILTIAZEM HCL 60 MG TABLET PO ×5 (00:03→23:37)
[2019-06-21 05:17] LABS: Basophils Percent Auto 0.1 % (0.2-1.2); Eosinophils Percent Auto 0.3 % (0-4.4); Hematocrit 34.4 % (42.0-52.0); Hemoglobin 10.8 g/dL (14.0-18.0); Immature Granulocyte Absolute 0.06 K/mm3 (0.00-0.031); Immature Granulocyte Percent A 0.5 % (0-0.5); Lymphocytes Absolute Auto 1.63 K/mm3 (0.9-3.2); Lymphocytes Percent Auto 13.9 % (18.3-44.2); Mean Corpuscular HGB Conc 31.4 g/dl (32-36); Mean Corpuscular Hemoglobin 27.9 pg (26-34); Mean Corpuscular Volume 88.9 fl (80-100); Mean Platelet Volume 10.7 fl (7.4-10.4); Monocytes Absolute Auto 0.6 K/mm3 (0.1-0.6); Monocytes Percent Auto 5.2 % (2.6-8.5); Neutrophils Absolute Auto 9.4 K/mm3 (1.3-6.7); Platelet Count Result 498 k/mm3 (150-375); Red Blood Count 3.87 M/mm3 (4.6-6.20); Red Cell Distribution Width 12.3 % (11.5-14.5); White Blood Count 11.7 K/mm3 (4.5-10.0)
[2019-06-21 05:31] LABS: Alanine Aminotransferase 341 U/L (4-50); Alkaline Phosphatase 67 U/L (38-126); Aspartate Amino Transferase 98 U/L (17-59); Bilirubin,Total 0.5 mg/dL (0.2-1.3); Blood Urea Nitrogen 25 mg/dL (9-20); CRP 7.8 mg/dL (<1.0); Calcium 9.1 mg/dL (8.4-10.2); Carbon Dioxide 31 mmol/L (22-30); Chloride 96 mmol/L (98-107); Estimated CRCL calculation 127 ml/min; Estimated Glomerular Filt Rate > 60; Glucose 283 mg/dL (75-110); Lactate Dehydrogenase 549 U/L (313-618); Potassium 4.6 mmol/L (3.4-5.0); Sodium 132 mmol/L (137-145)
[2019-06-21 06:11] LABS: D Dimer 9.45 ug/mL (<0.48)
[2019-06-21] MEDS: INSULIN ASPART (*BKC) 100 UNITS/ML SUB-Q ×2 (08:37→12:00)
[2019-06-21] MEDS: ASPIRIN 325 MG ENTERIC TABLET PO (08:37)
[2019-06-21] MEDS: lisinopriL 5 MG TABLET PO (08:38)
[2019-06-21] MEDS: allopurinoL 100 MG TABLET PO (08:38)
[2019-06-21] MEDS: ENOXAPARIN 100 MG/ML SYRINGE SUB-Q (08:39)
[2019-06-21 08:54] LABS: Glucose Point of Care 233 (65-105)
--- NOTE | 2019-06-21 09:22 | WPDINTPN ---
Progress Note: A&P Assessment and Plan (1) COVID-19 virus detected: Code(s): U07.1 - COVID-19 Status: Acute Assessment and Plan: patient tested positive for COVID-19 - chest x-ray shows bilateral airspace opacities - on ceftriaxone, status post course of hydroxychloroquine - continue patient on high-flow oxygen therapy and non-rebreather mask for now - discussed with Dr. Perkins and the patient regarding Tocilizumab, QuantiFERON TB test Pending, hepatitis panel is negative. - IL- 6 level She is pending - follow ferritin, LDH, D.dimer, CRP (2) Bilateral pneumonia: Qualifiers: Lung location: lower lobe of lung Pneumonia type: due to unspecified organism Qualified Code(s): J18.9 - Pneumonia, unspecified organism Code(s): J18.9 - Pneumonia, unspecified organism Status: Acute Assessment and Plan: patient with bilateral pneumonia, likely related to coronavirus - treatment as above (3) Atrial fibrillation with RVR: Code(s): I48.91 - Unspecified atrial fibrillation Status: Acute Assessment and Plan: patient on Cardizem p.o., currently in sinus rhythm rate controlled - cardiology following the patient (4) Insulin dependent type 2 diabetes mellitus: Code(s): E11.9 - Type 2 diabetes mellitus without complications; Z79.4 - assisted (current) use of insulin Status: Acute Assessment and Plan: patient hyperglycemic, likely related to steroids which were discontinued yesterday - will switch to Levemir - hemoglobin A1c 11.3 this admission (5) Hypertension: Qualifiers: Hypertension type: essential hypertension Qualified Code(s): I10 - Essential (primary) hypertension Code(s): I10 - Essential (primary) hypertension Status: Acute Assessment and Plan: patient with essential hypertension currently on Cardizem, blood pressures are within normal limits (6) Transaminasemia: Code(s): R74.0 - Nonspecific elevation of levels of transaminase and lactic acid dehydrogenase [LDH] Status: Acute Assessment and Plan: elevated LFTs, trending down, likely related to hydroxychloroquine, will continue to monitor the trend (7) DVT prophylaxis: Code(s): Z29.9 - Encounter for prophylactic measures, unspecified Status: Acute Assessment and Plan: Lovenox 1 mg/kg daily Additional Plan discussed with patient updated with his condition and plan of care. I also discussed with his Tuyet, and updated her with patient's condition and plan of care. According the nurses and patient has been estranged from his , he does not want me to disclose a lot of information to her. He stated he will talk to her himself. Code status: Full code Critical care time spent: 35 minutes Due to a high probability of clinically significant, life threatening deterioration, the patient required my highest level of preparedness to intervene emergently and I personally spent this critical care time directly and personally managing the patient. This critical care time included obtaining a history; examining the patient; pulse oximetry; ordering and review of studies; arranging urgent treatment with development of a management plan; evaluation of patient's response to treatment; frequent reassessment; and discussions with other providers. It was exclusive of separately billable procedures and treating other patients and teaching time. Please see Assessment and Plan section and the rest of the note for further information on patient assessment and treatment Subjective Date/time seen: 06/21/19 09:22 Reason for consult: POSITIVE CORONAVIRUS, acute respiratory, atrial fibrillation RVR 06/21/2019: Patient seen and examined. Remains on high-flow therapy, FiO2 90%, 60 L flow rate. Patient is awake, alert, comfortable. He does desaturate with activity. Urine output is adequate patient has be
[2019-06-21] MEDS: INSULIN DETEMIR 100 UNITS/ML 50 UNITS SUB-Q ×2 (10:35→20:19)
--- NOTE | 2019-06-21 10:37 | PCDIET ---
ICU Rounding Note: Pt current nutrition is DBCC/Regular Level 7+Glucerna BID. Nutrition recommendation: Agree Last recorded weight is 96.6kg (down from 100kg on admit) Bowel Motility:BM yesterday Labs Reviewed: C Reactive 7.8, Ferritin 638, Alt 341 (trending down) Meds Noted:Plaquenil, Novolog, Allpurinol Additional Notes: Pt with 50% PO intake over last four meals. Drinking Glucerna BID to help meet needs. Glucerna includes low glycemic carbohydrates to help minimize blood sugar spikes and provides 180 kcal, 10g protein, 16g CHO, and 26 vitamins and minerals per 8oz serving. Pt remains on high flow oxygen and + for COVID19. Inflammatory markers trending down. O2 requirements better today per rounds. Pt would benefit from high dose vitamin C in light of inflammatory markers at 100mg/kg of body weight per day during plaquenil treatment. Following daily in ICU rounds. Assessing/reassessing q t/f.
--- NOTE | 2019-06-21 17:49 | PM.IMPN ---
Progress Note: A&P Assessment and Plan (1) Acute respiratory failure with hypoxia: Code(s): J96.01 - Acute respiratory failure with hypoxia Status: Acute Assessment and Plan: Result of pneumonia due to COVID-19. Now on Airvo high-flow oxygen therapy with non rebreather mask. Able to ambulate to chair with minimal desaturation. Wean o2 as toelrated. Continue supportive care (2) Bilateral pneumonia: Qualifiers: Lung location: lower lobe of lung Pneumonia type: due to unspecified organism Qualified Code(s): J18.9 - Pneumonia, unspecified organism Code(s): J18.9 - Pneumonia, unspecified organism Status: Acute Assessment and Plan: Due to COVID-19. Urine and Blood cultures negative. Completed course of azithromycin and ceftriaxone 06/07-06/16 Ceftriaxone was reordered by cross-coverage 06/17. Continue albuterol HFA and Mucinex. 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 Repeat EKG on 06/17/2019 with sinus rhythm with QTc 412. Quantiferon TB pending but hepatitis panel negative; Pt received tocilizumab 400mg IV x1 today CRP trending down. LDH normal now. Ferritin up and down Wean O2 as tolerated. (4) Insulin dependent type 2 diabetes mellitus: Code(s): E11.9 - Type 2 diabetes mellitus without complications; Z79.4 - skilled nursing (current) use of insulin Status: Acute Assessment and Plan: DM poorly controlled with A1C 11.3. Steroids stopped. Patietn switched to Levemir. Metformin on hold. Continue Accu-Cheks with sliding scale insulin coverage. Continue hypoglycemia protocol. (5) Hypertension: Qualifiers: Hypertension type: essential hypertension Qualified Code(s): I10 - Essential (primary) hypertension Code(s): I10 - Essential (primary) hypertension Status: Acute Assessment and Plan: Blood pressure reviewed on 06/21/2019 and remains controlled. Continue to monitor on diltiazem and lisinopril. Watch for lows. (6) Atrial fibrillation with RVR: Code(s): I48.91 - Unspecified atrial fibrillation Status: Acute Assessment and Plan: Pateint developed AFib but converted to NSR. Echocardiogram with EF 55-60% and diastolic dysfunction. Tele showing that patient is maintaining NSR. Continue diltiazem and ASA. Lovenox increased to 100mg daily. Cardiology following. Appreciate Cardiology input. (7) Transaminasemia: Code(s): R74.0 - Nonspecific elevation of levels of transaminase and lactic acid dehydrogenase [LDH] Status: Acute Assessment and Plan: Due to sepsis and probable viral illness. Levels waxing and waning but better today with AST 98 and ALT 341. Hepatitis panel negative. Lipitor on hold. (8) Hypokalemia: Code(s): E87.6 - Hypokalemia Status: Acute Assessment and Plan: Resolved. Potassium 4.6 today. (9) Hyponatremia: Code(s): E87.1 - Hypo-osmolality and hyponatremia Status: Acute Assessment and Plan: Na stable in the low 130 range. Na 132 today. Continue to monitor. (10) Sepsis: Qualifiers: Acute respiratory failure type: with hypoxia Sepsis acute organ dysfunction status: with acute organ dysfunction Sepsis type: sepsis due to unspecified organism Severe sepsis acute organ dysfunction type: acute respiratory failure Severe sepsis shock status: without septic shock Qualified Code(s): A41.9 - Sepsis, unspecified organism; R65.20 - Severe sepsis without septic shock; J96.01 - Acute respiratory failure with hypoxia Code(s): A41.9 - Sepsis, unspecified organism Status: Acute Assessment and Plan: Present at ad
[2019-06-21 18:00] LABS: Glucose Point of Care 251 (65-105)
[2019-06-21 20:28] LABS: Glucose Point of Care 143 (65-105)
[2019-06-21 20:28] LABS: Glucose Point of Care 217 (65-105)
[2019-06-22] VITALS (20 sets, daily range): BP systolic 92–123; BP diastolic 74–82; PULSE 62–874; RESP 15–34; TEMP 36.4–37.1; O2SAT 94–100
[2019-06-22 05:21] LABS: Basophils Percent Auto 0.4 % (0.2-1.2); Eosinophils Absolute Auto 0.2 K/mm3 (0-0.3); Eosinophils Percent Auto 3.5 % (0-4.4); Hematocrit 34.1 % (42.0-52.0); Hemoglobin 10.8 g/dL (14.0-18.0); Immature Granulocyte Absolute 0.04 K/mm3 (0.00-0.031); Immature Granulocyte Percent A 0.7 % (0-0.5); Lymphocytes Absolute Auto 1.56 K/mm3 (0.9-3.2); Lymphocytes Percent Auto 27.6 % (18.3-44.2); Mean Corpuscular HGB Conc 31.7 g/dl (32-36); Mean Corpuscular Hemoglobin 28.3 pg (26-34); Mean Corpuscular Volume 89.5 fl (80-100); Mean Platelet Volume 10.4 fl (7.4-10.4); Monocytes Absolute Auto 0.3 K/mm3 (0.1-0.6); Neutrophils Absolute Auto 3.6 K/mm3 (1.3-6.7); Neutrophils Percent Auto 62.8 % (45.5-73.1); Platelet Count Result 490 k/mm3 (150-375); Red Blood Count 3.81 M/mm3 (4.6-6.20); Red Cell Distribution Width 12.2 % (11.5-14.5); White Blood Count 5.7 K/mm3 (4.5-10.0)
[2019-06-22] MEDS: DILTIAZEM HCL 60 MG TABLET PO ×3 (05:21→17:53)
[2019-06-22 05:55] LABS: Alanine Aminotransferase 239 U/L (4-50); Albumin Level 2.9 g/dL (3.5-5.1); Alkaline Phosphatase 56 U/L (38-126); Aspartate Amino Transferase 58 U/L (17-59); Bilirubin,Total 0.4 mg/dL (0.2-1.3); Blood Urea Nitrogen 15 mg/dL (9-20); CRP 6.2 mg/dL (<1.0); Calcium 8.9 mg/dL (8.4-10.2); Carbon Dioxide 32 mmol/L (22-30); Chloride 97 mmol/L (98-107); Estimated CRCL calculation 127 ml/min; Estimated Glomerular Filt Rate > 60; Glucose 89 mg/dL (75-110); Potassium 4.4 mmol/L (3.4-5.0); Sodium 134 mmol/L (137-145)
[2019-06-22] MEDS: ENOXAPARIN 100 MG/ML SYRINGE SUB-Q (08:43)
[2019-06-22] MEDS: ASPIRIN 325 MG ENTERIC TABLET PO (08:43)
[2019-06-22] MEDS: allopurinoL 100 MG TABLET PO (08:43)
[2019-06-22] MEDS: lisinopriL 5 MG TABLET PO (08:44)
[2019-06-22] MEDS: INSULIN DETEMIR 100 UNITS/ML 20 UNITS SUB-Q ×2 (08:50→21:21)
[2019-06-22 09:07] LABS: Glucose Point of Care 90 (65-105)
[2019-06-22 09:23] LABS: Lactate Dehydrogenase 576 U/L (313-618)
--- NOTE | 2019-06-22 09:33 | WPDINTPN ---
Progress Note: A&P Assessment and Plan (1) COVID-19 virus detected: Code(s): U07.1 - COVID-19 Status: Acute Assessment and Plan: patient tested positive for COVID-19 - chest x-ray shows bilateral airspace opacities - on ceftriaxone for total of 5 days - status post course of hydroxychloroquine - continue patient on high-flow oxygen therapy, off non-rebreather mask, will begin to wean high-flow nasal cannula - s/p Tocilizumab on 06/21/2019. Hepatitis panel is negative, QuantiFERON gold TB test is pending QuantiFERON TB test Pending, - IL- 6 level is pending - CRP, D-dimer, ferritin trending down, LDH is normalized, (2) Bilateral pneumonia: Qualifiers: Lung location: lower lobe of lung Pneumonia type: due to unspecified organism Qualified Code(s): J18.9 - Pneumonia, unspecified organism Code(s): J18.9 - Pneumonia, unspecified organism Status: Acute Assessment and Plan: patient with bilateral pneumonia, likely related to coronavirus - treatment as above (3) Atrial fibrillation with RVR: Code(s): I48.91 - Unspecified atrial fibrillation Status: Acute Assessment and Plan: patient on Cardizem p.o., currently in sinus rhythm rate controlled - cardiology following the patient (4) Insulin dependent type 2 diabetes mellitus: Code(s): E11.9 - Type 2 diabetes mellitus without complications; 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 Status: Acute Assessment and Plan: patient hyperglycemic, likely related to steroids which were discontinued yesterday - will decrease Levemir - hemoglobin A1c 11.3 this admission (5) Hypertension: Qualifiers: Hypertension type: essential hypertension Qualified Code(s): I10 - Essential (primary) hypertension Code(s): I10 - Essential (primary) hypertension Status: Acute Assessment and Plan: patient with essential hypertension currently on Cardizem, blood pressures are within normal limits (6) Transaminasemia: Code(s): R74.0 - Nonspecific elevation of levels of transaminase and lactic acid dehydrogenase [LDH] Status: Acute Assessment and Plan: elevated LFTs, trending down, likely related to hydroxychloroquine, will continue to monitor the trend (7) DVT prophylaxis: Code(s): Z29.9 - Encounter for prophylactic measures, unspecified Status: Acute Assessment and Plan: Lovenox 1 mg/kg daily Additional Plan discussed with patient updated him with his condition and plan of care. I answered all questions Code status: Full code Critical care time spent: 32 minutes Due to a high probability of clinically significant, life threatening deterioration, the patient required my highest level of preparedness to intervene emergently and I personally spent this critical care time directly and personally managing the patient. This critical care time included obtaining a history; examining the patient; pulse oximetry; ordering and review of studies; arranging urgent treatment with development of a management plan; evaluation of patient's response to treatment; frequent reassessment; and discussions with other providers. It was exclusive of separately billable procedures and treating other patients and teaching time. Please see Assessment and Plan section and the rest of the note for further information on patient assessment and treatment Subjective Date/time seen: 06/22/19 09:33 Reason for consult: POSITIVE CORONAVIRUS, acute respiratory, atrial fibrillation RVR. status post Tocilizumab on 06/21/2019 06/22/2019: Patient seen and examined this morning. States he feels a little better, off the 100% non-rebreather and saturating well on 85% FiO2 and 50 L flow rate. Patient denies any chest pain, abdominal pain, nausea vomiting. Appetite is good, urine output has been adequate. Patient did receive Tocilizumab on 06/21/19
--- NOTE | 2019-06-22 09:52 | PM.PNCARD ---
Progress Note: A&P Assessment and Plan (1) Sepsis: Qualifiers: Acute respiratory failure type: with hypoxia Sepsis acute organ dysfunction status: with acute organ dysfunction Sepsis type: sepsis due to unspecified organism Severe sepsis acute organ dysfunction type: acute respiratory failure Severe sepsis shock status: without septic shock Qualified Code(s): A41.9 - Sepsis, unspecified organism; R65.20 - Severe sepsis without septic shock; J96.01 - Acute respiratory failure with hypoxia Code(s): A41.9 - Sepsis, unspecified organism Status: Acute Assessment and Plan: First Aid Attendant fu (2) Atrial fibrillation with RVR: Code(s): I48.91 - Unspecified atrial fibrillation Status: Acute Assessment and Plan: Initially in AFIB with RVR converted to NSR and remains in NSR ECHO showed normal LV systolic function cont current meds (3) COVID-19 virus detected: Code(s): U07.1 - COVID-19 Status: Acute (4) Acute respiratory failure with hypoxia: Code(s): J96.01 - Acute respiratory failure with hypoxia Status: Acute Assessment and Plan: First Aid Attendant fu (5) Hypertension: Qualifiers: Hypertension type: essential hypertension Qualified Code(s): I10 - Essential (primary) hypertension Code(s): I10 - Essential (primary) hypertension Status: Acute Assessment and Plan: well controlled cont meds Subjective Date/time seen: 06/22/19 09:52 Chart was reviewed, Case was d/w pt's nurse. Pt remains in NSR. Improves slightly, still on high flow oxygen, First Aid Attendant fu. Exam Narrative: Exam Narrative: not performed Objective Data Vital Signs Vital Signs: Vital Signs - 24 hr 06/21/19 10:00 06/21/19 12:00 06/21/19 14:00 Temperature 36.4 C Pulse Rate 69 90 94 Respiratory Rate 23 H Blood Pressure 107/76 Pulse Oximetry 100 06/21/19 16:00 06/21/19 18:00 06/21/19 20:00 Temperature 36.6 C 37.1 C Pulse Rate 85 81 82 Respiratory Rate 27 H 26 H Blood Pressure 165/71 H 108/71 Pulse Oximetry 100 100 06/21/19 22:00 06/22/19 00:00 06/22/19 01:55 Temperature 37.1 C Pulse Rate 71 64 84 Respiratory Rate 23 H 18 26 H Blood Pressure 122/78 116/79 Pulse Oximetry 100 99 94 06/22/19 02:00 06/22/19 04:00 06/22/19 06:00 Temperature 36.6 C Pulse Rate 62 71 69 Respiratory Rate 34 H Blood Pressure 123/82 Pulse Oximetry 99 06/22/19 09:02 Temperature Pulse Rate Respiratory Rate Blood Pressure Pulse Oximetry 95 Intake/Output Intake/Output: Intake & Output 06/19/19 06/20/19 06/21/19 06/22/19 23:59 23:59 23:59 23:59 Intake Total 1700 2790 3290 350 Output Total 1975 1550 1750 1200 Balance -275 1240 1540 -850 Meds/Results Medications: Active Medications Generic Name Dose Route Start Last Admin Trade Name Freq PRN Reason Stop Dose Admin Acetaminophen 650 mg 06/08/19 18:34 06/17/19 20:52 Tylenol Tablet PO 650 mg Q6H PRN Administration Mild Pain (1-3) or Fever Albuterol 2 puff 06/11/19 20:00 06/22/19 09:01 Proventil Hfa INHALATION 2 puff QIDRT DAI Administration Allopurinol 100 mg 06/08/19 08:00 06/22/19 08:43 Zyloprim PO 100 mg DAILY@0800 DAI Administration Aspirin 325 mg 06/11/19 09:00 06/22/19 08:43 Aspirin Ec PO 325 mg QAM DAI Administration Dextrose 12.5 gm 06/07/19 21:18 Dextrose 50% Syringe IV PUSH PRN PRN Hypoglycemia Protocol Diltiazem HCl 60 mg 06/10/19 12:00 06/22/19 05:21 Cardizem Tab PO 60 mg Q6HR DAI Administration Enoxaparin Sodium 100 mg 06/21/19 09:00 06/22/19 08:43 Lovenox SUB-Q 100 mg DAILY DAI Administration Glucagon 1 mg 06/07/19 21:18 Glucagon For Inj IM PRN PRN Hypoglycemia Protocol Glucose 15 gm 06/07/19 21:18 Glutose 15 PO PRN PRN Hypoglycemia Protocol Guaifenesin 600 mg 06/11/19 21:00 06/22/19 08:43 Mucine
--- NOTE | 2019-06-22 10:47 | PCDIET ---
Nutrition Follow-Up Complete: Nutrition Diagnosis: Inadequate oral intake related to pneumonia as evidenced poor intake reported and weight loss of 14-23 pounds in the past 3 months. Nutrition Goal: Adequate intake of at least 75% of meals/supplements Goal met. Patient eating well today, per nursing, with patient c/o not getting enough food. Agree with present diet, but would continue Glucerna Shake BID and allow 2x protein or non-starchy vegetables at this time. Average intake 06/21/19 improved to 50%. Last recorded weight is 96.6 kg which is stable. Bowel Motility: BM x 1 on 06/20/19. Labs Reviewed: Na (134), Alb (2.9) Meds Noted: Proventil, Rocephin, Novolog, Levemir Additional Notes: Ferritin trending down. No reported skin breakdown. Will continue to monitor with same goals. Nutrition Monitoring and Evaluation: Will monitor every 5 days.
--- NOTE | 2019-06-22 11:08 | PM.IMPN ---
Progress Note: A&P Assessment and Plan (1) Acute respiratory failure with hypoxia: Code(s): J96.01 - Acute respiratory failure with hypoxia Status: Acute Assessment and Plan: Result of pneumonia due to COVID-19. Now on Airvo high-flow oxygen therapy but able to stop non rebreather mask. Contineu to increase activity. Wean O2 as tolerated. Continue supportive care (2) Bilateral pneumonia: Qualifiers: Lung location: lower lobe of lung Pneumonia type: due to unspecified organism Qualified Code(s): J18.9 - Pneumonia, unspecified organism Code(s): J18.9 - Pneumonia, unspecified organism Status: Acute Assessment and Plan: Due to COVID-19. Urine and Blood cultures negative. Completed course of azithromycin and ceftriaxone 06/07-06/16 Ceftriaxone was reordered by cross-coverage 06/17. Discussed with intensivsit; okay to stop Rocephin. Continue albuterol HFA and Mucinex. 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 EKG on 06/15/19 with sinus tachycardia and QTC of 442. Repeat EKG on 06/17/19 with sinus rhythm with QTc 412. Quantiferon TB pending but hepatitis panel negative; Pt received tocilizumab 400mg IV x1 on 06/21/19 Lovenox 100mg daily started 06/21/19 CRP and DDimer trending down. Able to wean O2. Continue to wean O2 as tolerated. (4) Insulin dependent type 2 diabetes mellitus: Code(s): E11.9 - Type 2 diabetes mellitus without complications; Z79.4 - nursing home (current) use of insulin Status: Acute Assessment and Plan: DM poorly controlled with A1C 11.3. Steroids stopped. Patient switched to Levemir. Metformin on hold. Glucose normal today so Levemir dose decreased. Continue Accu-Cheks with sliding scale insulin coverage. Continue hypoglycemia protocol. (5) Hypertension: Qualifiers: Hypertension type: essential hypertension Qualified Code(s): I10 - Essential (primary) hypertension Code(s): I10 - Essential (primary) hypertension Status: Acute Assessment and Plan: Blood pressure reviewed on 06/22/2019 and remains well controlled. Continue to monitor on diltiazem and lisinopril. (6) Atrial fibrillation with RVR: Code(s): I48.91 - Unspecified atrial fibrillation Status: Acute Assessment and Plan: Pateint developed AFib but converted to NSR. Echo with EF 55-60% and diastolic dysfunction. Tele showing that patient is maintaining NSR. Continue diltiazem and ASA. Lovenox increased to 100mg daily. Cardiology following. Appreciate Cardiology input. (7) Transaminasemia: Code(s): R74.0 - Nonspecific elevation of levels of transaminase and lactic acid dehydrogenase [LDH] Status: Acute Assessment and Plan: Due to sepsis and probable viral illness. Levels waxing and waning initially but improving over the past 2 days better today with AST 58 and ALT 239. Hepatitis panel negative. Lipitor on hold. TCK normal on 06/16/19 (8) Hypokalemia: Code(s): E87.6 - Hypokalemia Status: Acute Assessment and Plan: Resolved. Potassium 4.4 today. (9) Hyponatremia: Code(s): E87.1 - Hypo-osmolality and hyponatremia Status: Acute Assessment and Plan: Na stable in the low 130 range. Na 134 today. Continue to monitor. (10) Sepsis: Qualifiers: Sepsis type: sepsis due to unspecified organism Sepsis acute organ dysfunction status: with acute organ dysfunction Severe sepsis acute organ dysfunction type: acute respiratory failure Acute respiratory failure type: with hypoxia Severe sepsis shock status: without septic shock Qualified Code(s): A41.9 - Sepsis, unspecified organism; R65.20 - Severe
[2019-06-22] MEDS: INSULIN ASPART (*BKC) 100 UNITS/ML SUB-Q ×2 (12:45→19:24)
[2019-06-22 14:04] LABS: Glucose Point of Care 207 (65-105)
[2019-06-22 18:10] LABS: Glucose Point of Care 228 (65-105)
[2019-06-22 21:18] LABS: Glucose Point of Care 271 (65-105)
[2019-06-22 22:41] LABS: NIL 0.01 IU/mL; Quantiferon TB Plus, 1T INDETERMINATE (NEGATIVE); TB1-NIL <0.00 IU/mL; TB2-NIL <0.00 IU/mL
[2019-06-23] VITALS (14 sets, daily range): BP systolic 93–124; BP diastolic 60–83; PULSE 24–116; RESP 15–26; TEMP 36.1–36.4; O2SAT 92–96
[2019-06-23] MEDS: DILTIAZEM HCL 60 MG TABLET PO ×4 (01:01→17:55)
[2019-06-23 06:28] LABS: Basophils Percent Auto 0.8 % (0.2-1.2); Eosinophils Absolute Auto 0.3 K/mm3 (0-0.3); Eosinophils Percent Auto 6.3 % (0-4.4); Hematocrit 35.7 % (42.0-52.0); Hemoglobin 11.2 g/dL (14.0-18.0); Immature Granulocyte Absolute 0.13 K/mm3 (0.00-0.031); Immature Granulocyte Percent A 2.7 % (0-0.5); Lymphocytes Absolute Auto 1.53 K/mm3 (0.9-3.2); Lymphocytes Percent Auto 32.1 % (18.3-44.2); Mean Corpuscular HGB Conc 31.4 g/dl (32-36); Mean Corpuscular Hemoglobin 28.3 pg (26-34); Mean Corpuscular Volume 90.2 fl (80-100); Mean Platelet Volume 10.3 fl (7.4-10.4); Monocytes Absolute Auto 0.3 K/mm3 (0.1-0.6); Monocytes Percent Auto 7.1 % (2.6-8.5); Neutrophils Absolute Auto 2.4 K/mm3 (1.3-6.7); Platelet Count Result 497 k/mm3 (150-375); Red Blood Count 3.96 M/mm3 (4.6-6.20); Red Cell Distribution Width 12.1 % (11.5-14.5); White Blood Count 4.8 K/mm3 (4.5-10.0)
[2019-06-23 06:45] LABS: Alanine Aminotransferase 168 U/L (4-50); Albumin Level 2.9 g/dL (3.5-5.1); Alkaline Phosphatase 53 U/L (38-126); Aspartate Amino Transferase 36 U/L (17-59); Bilirubin,Total 0.3 mg/dL (0.2-1.3); Blood Urea Nitrogen 13 mg/dL (9-20); Calcium 8.7 mg/dL (8.4-10.2); Carbon Dioxide 32 mmol/L (22-30); Chloride 97 mmol/L (98-107); Estimated CRCL calculation 127 ml/min; Estimated Glomerular Filt Rate > 60; Glucose 134 mg/dL (75-110); Lactate Dehydrogenase 533 U/L (313-618); Potassium 4.3 mmol/L (3.4-5.0); Sodium 134 mmol/L (137-145)
[2019-06-23 06:54] LABS: D Dimer 5.87 ug/mL (<0.48)
[2019-06-23] MEDS: allopurinoL 100 MG TABLET PO (08:14)
[2019-06-23] MEDS: ASPIRIN 325 MG ENTERIC TABLET PO (08:14)
[2019-06-23] MEDS: ENOXAPARIN 100 MG/ML SYRINGE SUB-Q (08:16)
[2019-06-23] MEDS: lisinopriL 5 MG TABLET PO (08:16)
[2019-06-23] MEDS: INSULIN DETEMIR 100 UNITS/ML 20 UNITS SUB-Q ×2 (08:16→20:36)
--- NOTE | 2019-06-23 09:51 | WPDINTPN ---
Progress Note: A&P Assessment and Plan (1) COVID-19 virus detected: Code(s): U07.1 - COVID-19 Status: Acute Assessment and Plan: Patient tested positive for COVID-19 - chest x-ray shows bilateral airspace opacities. Today chest x-ray has not been changed significantly. - was on ceftriaxone for total of 5 days. He has completed the course of antibiotics already. - status post course of hydroxychloroquine - continue patient on high-flow oxygen therapy, off non-rebreather mask, FiO2 is trending down. I also the respiratory therapist to decrease the flow to range of 30 L today. May potentially a temp Oxymizer/ OxyMask in a.m. if flow and FiO2 is in reasonable range. - s/p Tocilizumab on 06/21/2019. Hepatitis panel is negative, QuantiFERON gold TB test is Reported as indeterminate. - IL- 6 level is pending - CRP, D-dimer, ferritin trending down, LDH is normalized, (2) Bilateral pneumonia: Qualifiers: Lung location: lower lobe of lung Pneumonia type: due to unspecified organism Qualified Code(s): J18.9 - Pneumonia, unspecified organism Code(s): J18.9 - Pneumonia, unspecified organism Status: Acute Assessment and Plan: patient with bilateral pneumonia, likely related to coronavirus - treatment as above (3) Atrial fibrillation with RVR: Code(s): I48.91 - Unspecified atrial fibrillation Status: Acute Assessment and Plan: patient on Cardizem p.o., currently in sinus rhythm rate controlled He is on therapeutic dose of Lovenox. It is unclear whether Lovenox has been started for AFib or COVID19 with high D-dimers. If he remained in sinus rhythm and his overall respiratory status is improving then potentially can stop Lovenox few days from now. - cardiology following the patient (4) Insulin dependent type 2 diabetes mellitus: Code(s): E11.9 - Type 2 diabetes mellitus without complications; Z79.4 - director long term care (current) use of insulin Status: Acute Assessment and Plan: patient hyperglycemic, likely related to steroids which were discontinued Already. - Continue Lovenox with 20 units subcutaneously at nighttime. At baseline he takes Lantus 34 units subcutaneous twice a day. - hemoglobin A1c 11.3 this admission His home metformin and glimepiride has been on hold. (5) Hypertension: Qualifiers: Hypertension type: essential hypertension Qualified Code(s): I10 - Essential (primary) hypertension Code(s): I10 - Essential (primary) hypertension Status: Acute Assessment and Plan: Patient with essential hypertension currently on Cardizem, blood pressures are within normal limits. Continue lisinopril. (6) Transaminasemia: Code(s): R74.0 - Nonspecific elevation of levels of transaminase and lactic acid dehydrogenase [LDH] Status: Acute Assessment and Plan: elevated LFTs, trending down, likely related to hydroxychloroquine, will continue to monitor the trend (7) DVT prophylaxis: Code(s): Z29.9 - Encounter for prophylactic measures, unspecified Status: Acute Assessment and Plan: Lovenox 1 mg/kg daily Additional Plan discussed with patient updated him with his condition and plan of care. I answered all questions Code status: Full code Critical care time spent: 32 minutes Due to a high probability of clinically significant, life threatening deterioration, the patient required my highest level of preparedness to intervene emergently and I personally spent this critical care time directly and personally managing the patient. This critical care time included obtaining a history; examining the patient; pulse oximetry; ordering and review of studies; arranging urgent treatment with development of a management plan; evaluation of patient's response to treatment; frequent reassessment; and discussions with other providers. It was exclusive of separately bi
[2019-06-23 11:18] LABS: Glucose Point of Care 186 (65-105)
--- NOTE | 2019-06-23 14:51 | PM.IMPN ---
Progress Note: A&P Assessment and Plan (1) Acute respiratory failure with hypoxia: Code(s): J96.01 - Acute respiratory failure with hypoxia Status: Acute Assessment and Plan: Result of pneumonia due to COVID-19. Now on Airvo high-flow oxygen therapy. Continue to increase activity. Wean O2 as tolerated. Continue supportive care. (2) Bilateral pneumonia: Qualifiers: Lung location: lower lobe of lung Pneumonia type: due to unspecified organism Qualified Code(s): J18.9 - Pneumonia, unspecified organism Code(s): J18.9 - Pneumonia, unspecified organism Status: Acute Assessment and Plan: Due to COVID-19. Urine and Blood cultures negative. Completed course of azithromycin and ceftriaxone 06/07-06/16 Ceftriaxone was reordered by cross-coverage 06/17 but stopped on 06/22/19. Continue albuterol HFA and Mucinex. Wean oxygen as tolerated (3) COVID-19 virus detected: Code(s): U07.1 - COVID-19 Status: Acute Assessment and Plan: Positive 2019-nCoV by display director-PCR reported on 06/08/19 Hydroxychloroquine for 5 day course 06/14-06/19/19; Was also treated with steroids. EKG on 06/15/19 with sinus tachycardia and QTC of 442. Repeat EKG on 06/17/19 with sinus rhythm with QTc 412. Quantiferon TB pending but hepatitis panel negative; Pt received tocilizumab 400mg IV x1 on 06/21/19 Lovenox 100mg daily started 06/21/19 CRP and DDimer trending down. Able to wean O2 to 40%. Continue to wean O2 as tolerated. (4) Insulin dependent type 2 diabetes mellitus: Code(s): E11.9 - Type 2 diabetes mellitus without complications; Z79.4 - vermin exterminator (current) use of insulin Status: Acute Assessment and Plan: DM poorly controlled with A1C 11.3. Steroids stopped. Patient switched to Levemir. Metformin on hold. Glucose reasonable today. Continue Levemir at current dose. Continue Accu-Cheks with sliding scale insulin coverage. Continue hypoglycemia protocol. (5) Hypertension: Qualifiers: Hypertension type: essential hypertension Qualified Code(s): I10 - Essential (primary) hypertension Code(s): I10 - Essential (primary) hypertension Status: Acute Assessment and Plan: Blood pressure reviewed on 06/23/2019 and remains well controlled. Continue to monitor on diltiazem and lisinopril. (6) Atrial fibrillation with RVR: Code(s): I48.91 - Unspecified atrial fibrillation Status: Acute Assessment and Plan: Pateint developed AFib but converted to NSR. Echo with EF 55-60% and diastolic dysfunction. Tele showing that patient is maintaining NSR. Continue diltiazem and ASA. Lovenox increased to 100mg daily. Cardiology following. Appreciate Cardiology input. (7) Transaminasemia: Code(s): R74.0 - Nonspecific elevation of levels of transaminase and lactic acid dehydrogenase [LDH] Status: Acute Assessment and Plan: Due to sepsis and viral illness. Levels waxing and waning initially but improving over the past 3 days better today with AST 36 and ALT 168. Hepatitis panel negative. Lipitor on hold. TCK normal on 06/16/19. Follow periodically. (8) Hyponatremia: Code(s): E87.1 - Hypo-osmolality and hyponatremia Status: Acute Assessment and Plan: Na improved to 134 yesterday and again today. Continue to monitor. (9) Sepsis: Qualifiers: Acute respiratory failure type: with hypoxia Sepsis acute organ dysfunction status: with acute organ dysfunction Sepsis type: sepsis due to unspecified organism Severe sepsis acute organ dysfunction type: acute respiratory failure Severe sepsis shock status: without septic shock Qualified Code(s): A41.9 - Sepsis, unspecified organism; R65.20 - Severe sepsis without septic shock; J96.01 - Acute respiratory failure with hypoxia Code(s): A41.9 - Sepsis, unspecified organism Status: Acute Assessment and Pl
[2019-06-23 19:05] LABS: Glucose Point of Care 175 (65-105)
[2019-06-23 20:35] LABS: Glucose Point of Care 287 (65-105)
[2019-06-24] VITALS (13 sets, daily range): BP systolic 98–117; BP diastolic 53–81; PULSE 57–93; RESP 16–23; TEMP 36.3–36.8; O2SAT 93–97
[2019-06-24] MEDS: DILTIAZEM HCL 60 MG TABLET PO ×4 (06:18→17:31)
[2019-06-24 06:33] LABS: Basophils Percent Auto 0.7 % (0.2-1.2); Eosinophils Absolute Auto 0.2 K/mm3 (0-0.3); Eosinophils Percent Auto 8.1 % (0-4.4); Hematocrit 34.5 % (42.0-52.0); Hemoglobin 11.1 g/dL (14.0-18.0); Immature Granulocyte Absolute 0.06 K/mm3 (0.00-0.031); Lymphocytes Absolute Auto 1.51 K/mm3 (0.9-3.2); Lymphocytes Percent Auto 50.7 % (18.3-44.2); Mean Corpuscular HGB Conc 32.2 g/dl (32-36); Mean Corpuscular Hemoglobin 28.7 pg (26-34); Mean Corpuscular Volume 89.1 fl (80-100); Mean Platelet Volume 9.9 fl (7.4-10.4); Monocytes Absolute Auto 0.3 K/mm3 (0.1-0.6); Monocytes Percent Auto 10.7 % (2.6-8.5); Neutrophils Absolute Auto 0.8 K/mm3 (1.3-6.7); Neutrophils Percent Auto 27.8 % (45.5-73.1); Platelet Count Result 501 k/mm3 (150-375); Red Blood Count 3.87 M/mm3 (4.6-6.20); Red Cell Distribution Width 12.1 % (11.5-14.5)
[2019-06-24 06:36] LABS: Alanine Aminotransferase 123 U/L (4-50); Albumin Level 2.8 g/dL (3.5-5.1); Alkaline Phosphatase 47 U/L (38-126); Aspartate Amino Transferase 30 U/L (17-59); Bilirubin,Total 0.4 mg/dL (0.2-1.3); Blood Urea Nitrogen 12 mg/dL (9-20); CRP 1.9 mg/dL (<1.0); Calcium 8.6 mg/dL (8.4-10.2); Carbon Dioxide 31 mmol/L (22-30); Chloride 98 mmol/L (98-107); Estimated CRCL calculation 150 ml/min; Estimated Glomerular Filt Rate > 60; Glucose 177 mg/dL (75-110); Potassium 4.3 mmol/L (3.4-5.0); Sodium 133 mmol/L (137-145)
[2019-06-24 06:41] LABS: D Dimer 3.99 ug/mL (<0.48)
[2019-06-24] MEDS: INSULIN DETEMIR 100 UNITS/ML 20 UNITS SUB-Q ×2 (08:05→20:59)
[2019-06-24] MEDS: ENOXAPARIN 100 MG/ML SYRINGE SUB-Q (08:19)
[2019-06-24] MEDS: ASPIRIN 325 MG ENTERIC TABLET PO (08:20)
[2019-06-24] MEDS: allopurinoL 100 MG TABLET PO (08:20)
[2019-06-24] MEDS: lisinopriL 5 MG TABLET PO (08:20)
--- NOTE | 2019-06-24 11:46 | PM.IMPN ---
Progress Note: A&P Assessment and Plan (1) Acute respiratory failure with hypoxia: Code(s): J96.01 - Acute respiratory failure with hypoxia Status: Acute Assessment and Plan: Result of pneumonia due to COVID-19. Now on Airvo high-flow oxygen therapy. Continue to increase activity. Wean O2 as tolerated. Continue supportive care. (2) Bilateral pneumonia: Qualifiers: Lung location: lower lobe of lung Pneumonia type: due to unspecified organism Qualified Code(s): J18.9 - Pneumonia, unspecified organism Code(s): J18.9 - Pneumonia, unspecified organism Status: Acute Assessment and Plan: Due to COVID-19. Urine and Blood cultures negative. Completed course of azithromycin and ceftriaxone 06/07-06/16 Ceftriaxone was reordered by cross-coverage 06/17 but stopped on 06/22/19. Continue albuterol HFA and Mucinex. Wean oxygen as tolerated (3) COVID-19 virus detected: Code(s): U07.1 - COVID-19 Status: Acute Assessment and Plan: Positive 2019-nCoV by voucher examiner-PCR reported on 06/08/19 Hydroxychloroquine for 5 day course 06/14-06/19/19; Was also treated with steroids. EKG on 06/15/19 with sinus tachycardia and QTC of 442. Repeat EKG on 06/17/19 with sinus rhythm with QTc 412. Quantiferon TB pending but hepatitis panel negative; Pt received tocilizumab 400mg IV x1 on 06/21/19 Lovenox 100mg daily started 06/21/19 CRP and DDimer continue to trend down. Able to wean O2 to 35%. Continue to wean O2 as tolerated. (4) Insulin dependent type 2 diabetes mellitus: Code(s): E11.9 - Type 2 diabetes mellitus without complications; Z79.4 - assisted (current) use of insulin Status: Acute Assessment and Plan: DM poorly controlled with A1C 11.3. Steroids stopped. Patient switched to Levemir. Metformin on hold. Glucose elevated at times related to his improved oral intake but not requiring much in the way of extra insulin. Will continue Levemir. Continue Accu-Cheks with sliding scale insulin coverage. Continue hypoglycemia protocol. (5) Hypertension: Qualifiers: Hypertension type: essential hypertension Qualified Code(s): I10 - Essential (primary) hypertension Code(s): I10 - Essential (primary) hypertension Status: Acute Assessment and Plan: Blood pressure reviewed on 06/24/2019 and remains well controlled. Continue to monitor on diltiazem and lisinopril. (6) Atrial fibrillation with RVR: Code(s): I48.91 - Unspecified atrial fibrillation Status: Acute Assessment and Plan: Pateint developed AFib but converted to NSR. Echo with EF 55-60% and diastolic dysfunction. Tele showing that patient is maintaining NSR. Continue diltiazem and ASA. Lovenox increased to 100mg daily. Cardiology following. Appreciate Cardiology input. (7) Transaminasemia: Code(s): R74.0 - Nonspecific elevation of levels of transaminase and lactic acid dehydrogenase [LDH] Status: Acute Assessment and Plan: Due to sepsis and viral illness. Levels waxing and waning initially but steadily improving over the past 4 days. Hepatitis panel negative. Lipitor on hold. TCK normal on 06/16/19. Follow periodically. (8) Hyponatremia: Code(s): E87.1 - Hypo-osmolality and hyponatremia Status: Acute Assessment and Plan: Na low but stable in the low 130s. Continue to monitor. (9) Sepsis: Qualifiers: Sepsis type: sepsis due to unspecified organism Sepsis acute organ dysfunction status: with acute organ dysfunction Severe sepsis acute organ dysfunction type: acute respiratory failure Acute respiratory failure type: with hypoxia Severe sepsis shock status: without septic shock Qualified Code(s): A41.9 - Sepsis, unspecified organism; R65.20 - Severe sepsis without septic shock; J96.01 - Acute respiratory failure with hypoxia Code(s): A41.9 - Sepsis, unspecified organis
[2019-06-24] MEDS: INSULIN ASPART (*BKC) 100 UNITS/ML SUB-Q ×2 (12:08→17:48)
--- NOTE | 2019-06-24 12:26 | WPDINTPN ---
Progress Note: A&P Assessment and Plan (1) COVID-19 virus detected: Code(s): U07.1 - COVID-19 Status: Acute Assessment and Plan: Patient tested positive for COVID-19 - chest x-ray shows bilateral airspace opacities. Today chest x-ray has not changed significantly. - was on ceftriaxone for total of 5 days. He has completed the course of antibiotics already. - status post course of hydroxychloroquine - continue patient on high-flow oxygen therapy, off non-rebreather mask, FiO2 is trending down. I also the respiratory therapist to decrease the flow to range of 30 L today. May potentially attemp Oxymizer/ OxyMask in a.m. if flow and FiO2 is 30 L and 35% FiO2 later today. - s/p Tocilizumab on 06/21/2019. Hepatitis panel is negative, QuantiFERON gold TB test is reported as indeterminate. - IL- 6 level is pending - CRP, D-dimer, ferritin trending down, LDH is normalized, (2) Bilateral pneumonia: Qualifiers: Lung location: lower lobe of lung Pneumonia type: due to unspecified organism Qualified Code(s): J18.9 - Pneumonia, unspecified organism Code(s): J18.9 - Pneumonia, unspecified organism Status: Acute Assessment and Plan: patient with bilateral pneumonia, likely related to coronavirus - treatment as above (3) Atrial fibrillation with RVR: Code(s): I48.91 - Unspecified atrial fibrillation Status: Acute Assessment and Plan: patient on Cardizem p.o., currently in sinus rhythm rate controlled He is on therapeutic dose of Lovenox. It is unclear whether Lovenox has been started for AFib or COVID19 with high D-dimers. If he remained in sinus rhythm and his overall respiratory status is improving then potentially can stop Lovenox few days from now. - cardiology following the patient (4) Insulin dependent type 2 diabetes mellitus: Code(s): E11.9 - Type 2 diabetes mellitus without complications; Z79.4 - alf (current) use of insulin Status: Acute Assessment and Plan: patient hyperglycemic, likely related to steroids which were discontinued Already. - Continue Lovenox with 20 units subcutaneously at nighttime. At baseline he takes Lantus 34 units subcutaneous twice a day. - hemoglobin A1c 11.3 this admission His home metformin and glimepiride has been on hold. (5) Hypertension: Qualifiers: Hypertension type: essential hypertension Qualified Code(s): I10 - Essential (primary) hypertension Code(s): I10 - Essential (primary) hypertension Status: Acute Assessment and Plan: Patient with essential hypertension currently on Cardizem, blood pressures are within normal limits. Continue lisinopril. (6) Transaminasemia: Code(s): R74.0 - Nonspecific elevation of levels of transaminase and lactic acid dehydrogenase [LDH] Status: Acute Assessment and Plan: elevated LFTs, trending down, likely related to hydroxychloroquine, will continue to monitor the trend (7) DVT prophylaxis: Code(s): Z29.9 - Encounter for prophylactic measures, unspecified Status: Acute Assessment and Plan: Lovenox 1 mg/kg daily Additional Plan discussed with patient updated him with his condition and plan of care. I answered all questions Code status: Full code Critical care time spent: 32 minutes Due to a high probability of clinically significant, life threatening deterioration, the patient required my highest level of preparedness to intervene emergently and I personally spent this critical care time directly and personally managing the patient. This critical care time included obtaining a history; examining the patient; pulse oximetry; ordering and review of studies; arranging urgent treatment with development of a management plan; evaluation of patient's response to treatment; frequent reassessment; and discussions with other providers. It was exclusive of separatel
--- NOTE | 2019-06-24 17:04 | PC.NURSE ---
This patient, Job Mendoza , was received from [ICU] on 06/24/19 at 1700. Personal belongings list checked and signed. Patient/family oriented to unit policies and routines
[2019-06-24 17:16] LABS: Glucose Point of Care 214 (65-105)
[2019-06-24 17:16] LABS: Glucose Point of Care 264 (65-105)
[2019-06-24 17:16] LABS: Glucose Point of Care 153 (65-105)
--- NOTE | 2019-06-24 17:26 | PC.NURSE ---
This patient, Job Mendoza Jr., was transferred to [ /s 330-1] on 06/24/19 at 1726. Personal belongings sent with patient. Belongings list checked and signed with receiving [ ]. Report given to [ rafaela castillo]. Appropriate documentation sent with patient.
[2019-06-24 19:07] LABS: Glucose Point of Care 322 (65-105)
[2019-06-24 22:05] LABS: Glucose Point of Care 304 (65-105)
[2019-06-25] VITALS (12 sets, daily range): BP systolic 95–111; BP diastolic 58–70; PULSE 64–101; RESP 16–20; TEMP 36.3–36.8; O2SAT 94–100
[2019-06-25] MEDS: DILTIAZEM HCL 60 MG TABLET PO ×5 (00:28→23:07)
[2019-06-25 06:15] LABS: Basophils Percent Auto 0.9 % (0.2-1.2); Eosinophils Absolute Auto 0.2 K/mm3 (0-0.3); Eosinophils Percent Auto 8.4 % (0-4.4); Hematocrit 35.4 % (42.0-52.0); Hemoglobin 11.2 g/dL (14.0-18.0); Immature Granulocyte Absolute 0.03 K/mm3 (0.00-0.031); Immature Granulocyte Percent A 1.3 % (0-0.5); Lymphocytes Absolute Auto 1.36 K/mm3 (0.9-3.2); Lymphocytes Percent Auto 60.2 % (18.3-44.2); Mean Corpuscular HGB Conc 31.6 g/dl (32-36); Mean Corpuscular Hemoglobin 28.6 pg (26-34); Mean Corpuscular Volume 90.5 fl (80-100); Mean Platelet Volume 10.2 fl (7.4-10.4); Monocytes Absolute Auto 0.3 K/mm3 (0.1-0.6); Monocytes Percent Auto 14.2 % (2.6-8.5); Neutrophils Absolute Auto 0.3 K/mm3 (1.3-6.7); Platelet Count Result 463 k/mm3 (150-375); Red Blood Count 3.91 M/mm3 (4.6-6.20); Red Cell Distribution Width 12.3 % (11.5-14.5); White Blood Count 2.3 K/mm3 (4.5-10.0)
[2019-06-25 06:30] LABS: Alanine Aminotransferase 119 U/L (4-50); Albumin Level 2.9 g/dL (3.5-5.1); Alkaline Phosphatase 48 U/L (38-126); Aspartate Amino Transferase 45 U/L (17-59); Bilirubin,Total 0.3 mg/dL (0.2-1.3); Blood Urea Nitrogen 11 mg/dL (9-20); CRP 1.4 mg/dL (<1.0); Calcium 8.4 mg/dL (8.4-10.2); Carbon Dioxide 31 mmol/L (22-30); Chloride 98 mmol/L (98-107); Estimated CRCL calculation 127 ml/min; Estimated Glomerular Filt Rate > 60; Glucose 192 mg/dL (75-110); Lactate Dehydrogenase 520 U/L (313-618); Potassium 4.5 mmol/L (3.4-5.0); Sodium 133 mmol/L (137-145)
[2019-06-25 06:38] LABS: D Dimer 5.32 ug/mL (<0.48)
[2019-06-25] MEDS: allopurinoL 100 MG TABLET PO (08:45)
[2019-06-25] MEDS: ENOXAPARIN 100 MG/ML SYRINGE SUB-Q (08:46)
[2019-06-25] MEDS: ASPIRIN 325 MG ENTERIC TABLET PO (08:46)
[2019-06-25] MEDS: INSULIN DETEMIR 100 UNITS/ML 25 UNITS SUB-Q ×2 (08:47→20:54)
[2019-06-25] MEDS: lisinopriL 5 MG TABLET PO (08:49)
[2019-06-25 09:06] LABS: Glucose Point of Care 187 (65-105)
--- NOTE | 2019-06-25 10:48 | PM.PNCARD ---
Progress Note: A&P Assessment and Plan (1) Sepsis: Qualifiers: Acute respiratory failure type: with hypoxia Sepsis acute organ dysfunction status: with acute organ dysfunction Sepsis type: sepsis due to unspecified organism Severe sepsis acute organ dysfunction type: acute respiratory failure Severe sepsis shock status: without septic shock Qualified Code(s): A41.9 - Sepsis, unspecified organism; R65.20 - Severe sepsis without septic shock; J96.01 - Acute respiratory failure with hypoxia Code(s): A41.9 - Sepsis, unspecified organism Status: Acute Assessment and Plan: management per PC (2) Atrial fibrillation with RVR: Code(s): I48.91 - Unspecified atrial fibrillation Status: Acute Assessment and Plan: pt initially in AFIB during this admission converted to NSR and remains in NSR ECHO showed normal LV systolic function cont current meds (3) COVID-19 virus detected: Code(s): U07.1 - COVID-19 Status: Acute (4) Acute respiratory failure with hypoxia: Code(s): J96.01 - Acute respiratory failure with hypoxia Status: Acute (5) Hypertension: Qualifiers: Hypertension type: essential hypertension Qualified Code(s): I10 - Essential (primary) hypertension Code(s): I10 - Essential (primary) hypertension Status: Acute Assessment and Plan: well controlled cont meds (6) Bilateral pneumonia: Qualifiers: Lung location: lower lobe of lung Pneumonia type: due to unspecified organism Qualified Code(s): J18.9 - Pneumonia, unspecified organism Code(s): J18.9 - Pneumonia, unspecified organism Status: Acute (7) Hypoxia: Code(s): R09.02 - Hypoxemia Status: Acute Subjective Date/time seen: 06/25/19 Pt was transferred to the floor from ICU yesterday Doing fine per his nurse. Saturation better. Case was reviewed, d/w pt's nurse. Exam Narrative: Exam Narrative: not performed Objective Data Vital Signs Vital Signs: Vital Signs - 24 hr 06/24/19 12:00 06/24/19 13:26 06/24/19 14:00 Temperature 36.6 C Pulse Rate 77 93 84 Respiratory Rate 16 18 20 Blood Pressure 104/70 110/68 Pulse Oximetry 97 97 96 06/24/19 16:00 06/24/19 17:33 04/19/20 20:00 Temperature 36.5 C Pulse Rate 74 83 64 Respiratory Rate 22 H 20 Blood Pressure 105/68 98/53 L Pulse Oximetry 93 95 06/24/19 21:20 06/25/19 00:00 06/25/19 02:05 Temperature 36.8 C 36.6 C Pulse Rate 73 77 68 Respiratory Rate 20 20 Blood Pressure 104/65 111/68 Pulse Oximetry 96 96 06/25/19 04:00 06/25/19 06:00 06/25/19 08:55 Temperature 36.4 C Pulse Rate 64 69 Respiratory Rate 16 Blood Pressure 109/70 Pulse Oximetry 97 94 Intake/Output Intake/Output: Intake & Output 06/22/19 06/23/19 06/24/19 06/25/19 23:59 23:59 23:59 23:59 Intake Total 2959 110 6401 250 Output Total 2075 2550 450 850 Balance -125 -1950 750 -600 Meds/Results Medications: Active Medications Generic Name Dose Route Start Last Admin Trade Name Freq PRN Reason Stop Dose Admin Acetaminophen 650 mg 06/08/19 18:34 06/17/19 20:52 Tylenol Tablet PO 650 mg Q6H PRN Administration Mild Pain (1-3) or Fever Albuterol 2 puff 06/11/19 20:00 06/25/19 08:55 Proventil Hfa INHALATION 2 puff QIDRT DAI Administration Allopurinol 100 mg 06/08/19 08:00 06/25/19 08:45 Zyloprim PO 100 mg DAILY@0800 [facility] Administration Aspirin 325 mg 06/11/19 09:00 06/25/19 08:46 Aspirin Ec PO 325 mg QAM DAI Administration Dextrose 12.5 gm 06/07/19 21:18 Dextrose 50% Syringe IV PUSH PRN PRN Hypoglycemia Protocol Diltiazem HCl 60 mg 06/10/19 12:00 06/25/19 06:36 Cardizem Tab PO 60 mg Q6HR [facility] Administration Enoxaparin Sodium 100 mg 06/21/19 09:00 06/25/19 08:46 Lovenox SUB-Q 100 mg DAILY DAI Administration Glucagon 1 mg 06/07/19 21:18 Glucagon For Inj
[2019-06-25] MEDS: INSULIN ASPART (*BKC) 100 UNITS/ML SUB-Q ×3 (14:06→20:55)
[2019-06-25 14:07] LABS: Glucose Point of Care 247 (65-105)
--- NOTE | 2019-06-25 15:19 | P.PNIM_ITS ---
Progress Note: A&P Assessment and Plan (1) Acute respiratory failure with hypoxia: Code(s): J96.01 - Acute respiratory failure with hypoxia Status: Acute Assessment and Plan: * Result of pneumonia due to COVID-19. * Patient has been weaned to basic nasal cannula. Currently down to 3 L. * Continue to increase activity. Wean O2 as tolerated. Continue supportive care. Resume PT and OT. (2) Bilateral pneumonia: Qualifiers: Lung location: lower lobe of lung Pneumonia type: due to unspecified organism Qualified Code(s): J18.9 - Pneumonia, unspecified organism Code(s): J18.9 - Pneumonia, unspecified organism Status: Acute Assessment and Plan: * Due to COVID-19. Urine and Blood cultures negative. * Completed course of azithromycin and ceftriaxone 06/07-06/16 * Ceftriaxone was reordered by cross-coverage 06/17 but stopped on 06/22/19. * Continue albuterol HFA and Mucinex. * Wean oxygen as tolerated (3) COVID-19 virus detected: Code(s): U07.1 - COVID-19 Status: Acute Assessment and Plan: * Positive 2019-nCoV by journalists and other writers-PCR reported on 06/08/19 * Hydroxychloroquine for 5 day course 06/14-06/19/19; Was also treated with steroids. * EKG on 06/15/19 with sinus tachycardia and QTC of 442. Repeat EKG on 06/17/19 with sinus rhythm with QTc 412. * Quantiferon TB pending but hepatitis panel negative; Pt received tocilizumab 400mg IV x1 on 06/21/19 * Lovenox 100mg daily started 06/21/19 * CRP and Ferritin better but DDimer higher for unclear reasons. * Able to wean O2 to 3L. Continue to wean O2 as tolerated. (4) Leukopenia: Qualifiers: Leukopenia type: neutropenia Neutropenia type: other drug-induced Qualified Code(s): D70.2 - Other drug-induced agranulocytosis Code(s): D72.819 - Decreased white blood cell count, unspecified Status: Acute Assessment and Plan: * WBC was 3K yesterday with ANC 834 and now 2.3K with ANC 345. * [place] related to the tocilizumab he received on 06/21/19 * Should improve with time; hopefully this won't trigger a resurgent COVID infection * Continue to follow; already under neutropenic precautions given that he is COVID positive (5) Insulin dependent type 2 diabetes mellitus: Code(s): E11.9 - Type 2 diabetes mellitus without complications; Z79.4 - [facility] ( current) use of insulin Status: Acute Assessment and Plan: * DM poorly controlled with A1C 11.3. * Steroids stopped. Patient switched to Levemir. Metformin on hold. * Glucose elevated mostly during the day but luis enrique in the morning. Will advance morning dose of Levemir. Continue the same dose at night. * Continue Accu-Cheks with sliding scale insulin coverage. Continue hypoglycemia protocol. (6) Hypertension: Qualifiers: Hypertension type: essential hypertension Qualified Code(s): I10 - Essential (primary) hypertension Code(s): I10 - Essential (primary) hypertension Status: Acute Assessment and Plan: * Blood pressure reviewed on 06/25/2019 and remains well controlled. * Continue to monitor on diltiazem and lisinopril. (7) Atrial fibrillation with RVR: Code(s): I48.91 - Unspecified atrial fibrillation Status: Acute Assessment and Plan: * Pateint developed AFib but converted to NSR. * Echo with EF 55-60% and diastolic dysfunction. Tele showing that patient is maintaining NSR. * Continue diltiazem and ASA. * Lovenox at 100mg daily due to COVID. * Cardiology following.
--- NOTE | 2019-06-25 15:19 | PM.IMPN ---
Progress Note: A&P Assessment and Plan (1) Acute respiratory failure with hypoxia: Code(s): J96.01 - Acute respiratory failure with hypoxia Status: Acute Assessment and Plan: Result of pneumonia due to COVID-19. Patient has been weaned to basic nasal cannula. Currently down to 3 L. Continue to increase activity. Wean O2 as tolerated. Continue supportive care. Resume PT and OT. (2) Bilateral pneumonia: Qualifiers: Lung location: lower lobe of lung Pneumonia type: due to unspecified organism Qualified Code(s): J18.9 - Pneumonia, unspecified organism Code(s): J18.9 - Pneumonia, unspecified organism Status: Acute Assessment and Plan: Due to COVID-19. Urine and Blood cultures negative. Completed course of azithromycin and ceftriaxone 06/07-06/16 Ceftriaxone was reordered by cross-coverage 06/17 but stopped on 06/22/19. Continue albuterol HFA and Mucinex. Wean oxygen as tolerated (3) COVID-19 virus detected: Code(s): U07.1 - COVID-19 Status: Acute Assessment and Plan: Positive 2019-nCoV by quarter doper-PCR reported on 06/08/19 Hydroxychloroquine for 5 day course 06/14-06/19/19; Was also treated with steroids. EKG on 06/15/19 with sinus tachycardia and QTC of 442. Repeat EKG on 06/17/19 with sinus rhythm with QTc 412. Quantiferon TB pending but hepatitis panel negative; Pt received tocilizumab 400mg IV x1 on 06/21/19 Lovenox 100mg daily started 06/21/19 CRP and Ferritin better but DDimer higher for unclear reasons. Able to wean O2 to 3L. Continue to wean O2 as tolerated. (4) Leukopenia: Qualifiers: Leukopenia type: neutropenia Neutropenia type: other drug-induced Qualified Code(s): D70.2 - Other drug-induced agranulocytosis Code(s): D72.819 - Decreased white blood cell count, unspecified Status: Acute Assessment and Plan: WBC was 3K yesterday with ANC 834 and now 2.3K with ANC 345. 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 Steroids stopped. Patient switched to Levemir. Metformin on hold. Glucose elevated mostly during the day but luis enrique in the morning. Will advance morning dose of Levemir. Continue the same dose at night. Continue Accu-Cheks with sliding scale insulin coverage. Continue hypoglycemia protocol. (6) Hypertension: Qualifiers: Hypertension type: essential hypertension Qualified Code(s): I10 - Essential (primary) hypertension Code(s): I10 - Essential (primary) hypertension Status: Acute Assessment and Plan: Blood pressure reviewed on 06/25/2019 and remains well controlled. Continue to monitor on diltiazem and lisinopril. (7) Atrial fibrillation with RVR: Code(s): I48.91 - Unspecified atrial fibrillation Status: Acute Assessment and Plan: Pateint developed AFib but converted to NSR. Echo with EF 55-60% and diastolic dysfunction. Tele showing that patient is maintaining NSR. Continue diltiazem and ASA. Lovenox at 100mg daily due to COVID. Cardiology following. Appreciate Cardiology input. (8) Transaminasemia: Code(s): R74.0 - Nonspecific elevation of levels of transaminase and lactic acid dehydrogenase [LDH] Status: Acute Assessment and Plan: Due to sepsis and viral illness. Levels waxing and waning initially but steadily improving over the past 5 days. Hepatitis panel negative. Lipitor on hold. TCK normal on 06/16/19. Follow periodically
[2019-06-25 18:06] LABS: Glucose Point of Care 273 (65-105)
[2019-06-25 22:02] LABS: Glucose Point of Care 328 (65-105)
[2019-06-26] VITALS (14 sets, daily range): BP systolic 105–135; BP diastolic 68–77; PULSE 65–107; RESP 16–20; TEMP 36.4–37.3; O2SAT 86–100
[2019-06-26] MEDS: DILTIAZEM HCL 60 MG TABLET PO ×2 (05:34→13:58)
[2019-06-26 07:00] LABS: Basophils Percent Auto 1.2 % (0.2-1.2); Eosinophils Absolute Auto 0.1 K/mm3 (0-0.3); Eosinophils Percent Auto 5.7 % (0-4.4); Hematocrit 35.2 % (42.0-52.0); Immature Granulocyte Absolute 0.02 K/mm3 (0.00-0.031); Immature Granulocyte Percent A 0.8 % (0-0.5); Lymphocytes Absolute Auto 1.63 K/mm3 (0.9-3.2); Mean Corpuscular HGB Conc 31.3 g/dl (32-36); Mean Corpuscular Hemoglobin 28.1 pg (26-34); Monocytes Absolute Auto 0.4 K/mm3 (0.1-0.6); Monocytes Percent Auto 14.2 % (2.6-8.5); Neutrophils Absolute Auto 0.3 K/mm3 (1.3-6.7); Neutrophils Percent Auto 12.1 % (45.5-73.1); Platelet Count Result 454 k/mm3 (150-375); Red Blood Count 3.91 M/mm3 (4.6-6.20); Red Cell Distribution Width 12.3 % (11.5-14.5); White Blood Count 2.5 K/mm3 (4.5-10.0)
[2019-06-26 07:10] LABS: Alanine Aminotransferase 124 U/L (4-50); Albumin Level 2.9 g/dL (3.5-5.1); Alkaline Phosphatase 48 U/L (38-126); Aspartate Amino Transferase 58 U/L (17-59); Bilirubin,Total 0.3 mg/dL (0.2-1.3); Blood Urea Nitrogen 10 mg/dL (9-20); Calcium 8.4 mg/dL (8.4-10.2); Carbon Dioxide 30 mmol/L (22-30); Chloride 99 mmol/L (98-107); D Dimer 2.82 ug/mL (<0.48); Estimated CRCL calculation 127 ml/min; Estimated Glomerular Filt Rate > 60; Glucose 154 mg/dL (75-110); Potassium 4.3 mmol/L (3.4-5.0); Sodium 134 mmol/L (137-145)
[2019-06-26] MEDS: INSULIN DETEMIR 100 UNITS/ML 25 UNITS SUB-Q (10:03)
[2019-06-26] MEDS: ENOXAPARIN 100 MG/ML SYRINGE SUB-Q (10:07)
[2019-06-26] MEDS: lisinopriL 5 MG TABLET PO (10:08)
[2019-06-26] MEDS: ASPIRIN 325 MG ENTERIC TABLET PO (10:08)
[2019-06-26] MEDS: allopurinoL 100 MG TABLET PO (10:08)
--- NOTE | 2019-06-26 13:00 | PM.IMPN ---
Progress Note: A&P Assessment and Plan (1) Acute respiratory failure with hypoxia: Code(s): J96.01 - Acute respiratory failure with hypoxia Status: Acute Assessment and Plan: Result of pneumonia due to COVID-19. Has now resolved. Patient currently on room air but will still proceed with home oxygen evaluation in case of need with exercise. Ambulating on his own. Will discharge home today. (2) Bilateral pneumonia: Qualifiers: Lung location: lower lobe of lung Pneumonia type: due to unspecified organism Qualified Code(s): J18.9 - Pneumonia, unspecified organism Code(s): J18.9 - Pneumonia, unspecified organism Status: Acute Assessment and Plan: Due to COVID-19. Urine and Blood cultures negative. Completed course of azithromycin and ceftriaxone 06/07-06/16. Ceftriaxone was reordered by cross-coverage 06/17 but stopped on 06/22/19. Clinically now improved. Will continue albuterol HFA and Mucinex. Off oxygen as noted above. (3) COVID-19 virus detected: Code(s): U07.1 - COVID-19 Status: Acute Assessment and Plan: Positive 2019-nCoV by copy manager-PCR reported on 06/08/19. With patient still requiring high-flow oxygen, received course of hydroxychloroquine for 5 days finishing on 06/19/2019. EKG was followed with use of hydroxychloroquine. QuantiFERON gold test reported as indeterminate. Hepatitis panel negative. Did receive tocilizumab 400 mg IV x1 dose on 06/21/2019. Previously treated with steroids but has now completed. On room air as noted above. D-dimer elevated but C reactive protein now normal. Ferritin remains elevated but has been decreasing. (4) Leukopenia: Qualifiers: Leukopenia type: neutropenia Neutropenia type: other drug-induced Qualified Code(s): D70.2 - Other drug-induced agranulocytosis Code(s): D72.819 - Decreased white blood cell count, unspecified Status: Acute Assessment and Plan: [place] related to the tocilizumab he received on 06/21/2019. WBC slightly higher at 2.5 today with absolute neutrophil count still low. Will need to follow as outpatient. (5) Sepsis: Qualifiers: Sepsis type: sepsis due to unspecified organism Sepsis acute organ dysfunction status: with acute organ dysfunction Severe sepsis acute organ dysfunction type: acute respiratory failure Acute respiratory failure type: with hypoxia Severe sepsis shock status: without septic shock Qualified Code(s): A41.9 - Sepsis, unspecified organism; R65.20 - Severe sepsis without septic shock; J96.01 - Acute respiratory failure with hypoxia Code(s): A41.9 - Sepsis, unspecified organism Status: Acute Assessment and Plan: Present on admission with tachypnea, tachycardia, hypoxia related to COVID and pneumonia. Sx have improved. 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 Glucose reviewed on 06/26/2019 and currently remains elevated on Levemir here but normally on Lantus at home. Will send him home on Lantus. Will also resume his metformin at home. Will need to follow as outpatient. (7) Hypertension: Qualifiers: Hypertension type: essential hypertension Qualified Code(s): I10 - Essential (primary) hypertension Code(s): I10 - Essential (primary) hypertension Status: Acute Assessment and Plan: Blood pressure reviewed on 06/26/2019 and remains controlled. Continue diltiazem and lisinopril. (8) Atrial fibrillation with RVR: Code(s): I48.91 - Unspecified atrial fibrillation Status: Acute Assessment and Plan: Converted to normal sinus rhythm previously. Has remained in sinus rhythm for quite some time. Echocardiogram with EF 55-60% and diastolic dysfunction. Telemetry reviewed o
[2019-06-26] MEDS: INSULIN ASPART (*BKC) 100 UNITS/ML SUB-Q (13:58)
--- NOTE | 2019-06-26 14:30 | HOMEO2EVAL ---
Home Oxygen Evaluation RC: Home Oxygen (O2) Evaluation Start: 06/25/19 15:21 Freq: ONCE Status: Active Protocol: RPE Activity Type Activity Date Activity User E-Sign Co-Sign Detail Recorded Client Recorded Date Recorded By Document 06/26/19 14:00 [email or web address] [email or web address] 06/26/19 14:29 ISRA Document 06/26/19 14:03 [email or web address] [email or web address] 06/26/19 14:29 ISRA Document 06/26/19 14:05 [email or web address] [email or web address] 06/26/19 14:29 ISRA Document 06/26/19 14:07 [email or web address] [email or web address] 06/26/19 14:29 ISRA Document 06/26/19 14:15 [email or web address] [email or web address] 06/26/19 14:29 ISRA 06/26/19 06/26/19 06/26/19 14:00 14:03 14:05 Home O2 Evaluation Test Phase Resting Exercise Exercise Oxygen Delivery Room Air Room Air Nasal Cannula Oxygen Flow Rate (L/min) 1 Pulse Oximetry (90-100 %) 89 L 86 L 87 L Home Oxygen Evaluation Comments Treatment Charges O2 Evaluation 06/26/19 06/26/19 14:07 14:15 Home O2 Evaluation Test Phase Exercise Resting Oxygen Delivery Nasal Cannula Room Air Oxygen Flow Rate (L/min) 2 Pulse Oximetry (90-100 %) 90 91 Home Oxygen Evaluation Comments PT REQUIRES 2L WITH EXERTION/ ACTIVITY Treatment Charges
[2019-06-26 15:09] LABS: Glucose Point of Care 221 (65-105)
--- NOTE | 2019-06-26 15:35 | PCPTNOTE ---
Attempted Therapy session, Pt is discharging to go home.
[2019-06-26 15:38] LABS: Glucose Point of Care 152 (65-105)
--- NOTE | 2019-06-26 15:38 | PCRCNOTE ---
HOME O2EVAL DONE, 2L WITH EXERTION. [facility]. PAPERWORD HAS BEEN FAXED AND TANK HAS BEEN DROPPED OFF AT PT ROOM FOR D/C HOME.
--- NOTE | 2019-06-26 20:09 | PM.DS ---
DS: Diagnosis Admitting Diagnosis Admitting Diagnosis: Pneumonia, unspecified organism Discharge Diagnosis (1) Acute respiratory failure with hypoxia: Code(s): J96.01 - Acute respiratory failure with hypoxia Status: Acute (2) Bilateral pneumonia: Qualifiers: Lung location: lower lobe of lung Pneumonia type: due to unspecified organism Qualified Code(s): J18.9 - Pneumonia, unspecified organism Code(s): J18.9 - Pneumonia, unspecified organism Status: Acute (3) COVID-19 virus detected: Code(s): U07.1 - COVID-19 Status: Acute (4) Leukopenia: Qualifiers: Leukopenia type: neutropenia Neutropenia type: other drug-induced Qualified Code(s): D70.2 - Other drug-induced agranulocytosis Code(s): D72.819 - Decreased white blood cell count, unspecified Status: Acute (5) Sepsis: Qualifiers: Sepsis type: sepsis due to unspecified organism Sepsis acute organ dysfunction status: with acute organ dysfunction Severe sepsis acute organ dysfunction type: acute respiratory failure Acute respiratory failure type: with hypoxia Severe sepsis shock status: without septic shock Qualified Code(s): A41.9 - Sepsis, unspecified organism; R65.20 - Severe sepsis without septic shock; J96.01 - Acute respiratory failure with hypoxia Code(s): A41.9 - Sepsis, unspecified organism Status: Acute (6) Insulin dependent type 2 diabetes mellitus: Code(s): E11.9 - Type 2 diabetes mellitus without complications; 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 Status: Acute (7) Hypertension: Qualifiers: Hypertension type: essential hypertension Qualified Code(s): I10 - Essential (primary) hypertension Code(s): I10 - Essential (primary) hypertension Status: Acute (8) Atrial fibrillation with RVR: Code(s): I48.91 - Unspecified atrial fibrillation Status: Acute (9) Transaminasemia: Code(s): R74.0 - Nonspecific elevation of levels of transaminase and lactic acid dehydrogenase [LDH] Status: Acute (10) Hyponatremia: Code(s): E87.1 - Hypo-osmolality and hyponatremia Status: Acute DS: Summary Hospital Course Reason for hospitalization: Generalized weakness. Hospital Course: Date of Service of Discharge: June 26, 2019. History of Present Illness: Patient is a 53-year-old gentleman with known hypertension, hyperlipidemia, gout and insulin-requiring diabetes present to the emergency room for evaluation of generalized weakness. Patient reports generalized malaise and progressive weakness along with cough and shortness of breath on exertion for 7 days. He also reported bilateral pleuritic pain mainly in the mid back region that is worse with deep inspiration, cough and lying flat. No recorded fever to his knowledge but he has had chills. Appetite has been decreased along with decreased sense of taste. No recent travel. No known exposure to anyone testing positive for COVID-19 to his knowledge. He has been taking all of his medication despite poor appetite. No headache, nasal congestion or drainage, abdominal pain, nausea or vomiting. Findings in the emergency room were consistent with acute respiratory failure with hypoxia and bilateral pneumonia with concern for COVID-19 infection. As result, he was admitted for further evaluation and treatment. Course in Hospital: Admitted to the medical floor and started on IV ceftriaxone and azithromycin while awaiting COVID-19 testing. Continued to have increasing respiratory difficulty as well as onset of atrial fibrillation. With these difficulties he was eventually moved to the intermediate care unit. He continued to receive IV antibiotics initially complete course of azithromycin ceftriaxone on 06/17/2019. He additionally receive some additional IV ceftriaxone on 06/18/2019 with an additional change in respiratory status but this was also stopped on
== END 2019-06-26 16:05 | disposition home or self-care (01) | DRG 720 ==
LOC: ANHED 15:11 → ANH3MEDSUR 15:15 → ANHICU 06-09 17:22 → ANH3MEDSUR 06-24 17:08
PROVIDERS: Hospitalist; Internal Medicine; Internal Medicine Cardiovascular Disease; Nurse Practitioner; Physician Assistant; Admitting Provider Internal Medicine; Emergency Provider Emergency Medicine; PCP Internal Medicine Infectious Disease; Visit Provider Internal Medicine
DX: A41.89 Other specified sepsis (principal); R65.20 Severe sepsis without septic shock; U07.1 COVID-19; J12.89 Other viral pneumonia; J96.01 Acute respiratory failure with hypoxia; I10 Essential (primary) hypertension; E87.6 Hypokalemia; I48.91 Unspecified atrial fibrillation; D70.2 Other drug-induced agranulocytosis; T39.4X5A Adverse effect of antirheumatics, not elsewhere classified, initial encounter; E78.5 Hyperlipidemia, unspecified; M10.9 Gout, unspecified; E87.1 Hypo-osmolality and hyponatremia; R74.0 Nonspecific elevation of levels of transaminase and lactic acid dehydrogenase [LDH]; E11.65 Type 2 diabetes mellitus with hyperglycemia; Z79.4 Long term (current) use of insulin
CPT/HCPCS: 36415; 36600; 71045; 80048; 80053; 80061; 80076; 81001; 82375; 82550; 82728; 82805; 82948; 83036; 83050; 83520; 83605; 83615; 83735; 83880; 84100; 85025; 85027; 85380; 85610; 85730; 86140; 86480; 86709; 86803; 87040; 87070; 87086; 87205; 87340; 87449; 87804; 87899; 93005; 93306; 94618; 94640; 96365; 96375; 97110; 97161; 97163; 97165; 97167; 97535; 99285; A9270; J0131; J0456; J0696; J1650; J1815; J2920; J2930; J3262

== ENCOUNTER 2019-08-14 14:16 | Outpatient (CLI) | payer OTHER, SELFPAY ==
[2019-08-14 14:44] LABS: Alanine Aminotransferase 28 U/L (4-50); Alkaline Phosphatase 37 U/L (38-126); Aspartate Amino Transferase 34 U/L (17-59); Bilirubin,Total 0.7 mg/dL (0.2-1.3); Blood Urea Nitrogen 5 mg/dL (9-20); Calcium 9.3 mg/dL (8.4-10.2); Carbon Dioxide 28 mmol/L (22-30); Chloride 103 mmol/L (98-107); Estimated Glomerular Filt Rate > 60; Glucose 139 mg/dL (75-110); Magnesium 1.8 mg/dL (1.6-2.3); Potassium 4.1 mmol/L (3.4-5.0); Sodium 136 mmol/L (137-145)
== END 2019-08-14 14:17 | disposition home or self-care (01) ==
PROVIDERS: PCP Internal Medicine Infectious Disease; Visit Provider Internal Medicine Cardiovascular Disease
DX: E78.5 Hyperlipidemia, unspecified (principal)
CPT/HCPCS: 36415; 80053; 83735